=== PATIENT | female | born 1940 | race Caucasian/White ===

== ENCOUNTER → 2016-10-27 12:28 | Outpatient (CLI) | payer MEDICARE ==
[2016-02-04 15:30] VITALS: BMI 33.0
[~2016-10-27 12:28] MED LIST: ADVAIR 250/501 DISK INH; ADVAIR 500/501 DISK INH; ADVIL200 MG PO; ATROVENT 0.03%30 ML NS; BACTRIM DS TABL1 TAB PO; BAYER CHEWABLE81 MG PO; BENZONATATE200 MG PO; BROVANA15 MCG/2 M INH; CALCIUM 250+D T1 TAB PO; CENTRUM COMPLE1 EACH PO; COMBIVENT RESPIM4 GM INH; CYCLOBENZAPRINE10 MG PO; DALIRESP500 MCG PO; DIFLUCAN100 MG PO; FLUTICASONE PRO16 GM NASAL; HYDROCHLOROTH12.5 M1 PO; IPRAT-ALBUT 0.5-3 ML UPD; LACTINEX GRANUL1 PCK PO; LEVAQUIN250 MG PO; LEVAQUIN500 MG PO; LISINOPRIL10 MG PO; Levaquin PO; MUCINEX DM ER1 EAC1 PO; NYSTATIN ORAL SU5 ML PO; PLAVIX75 MG PO; PROTONIX40 MG PO; PROVENTIL/2.5 MG/3 M INH; ROBITUSSIN AC (10 M1 PO; SINGULAIR10 MG PO; STERAPRED DS 1210 MG PO; TUDORZA PRESS400 MCG INH; VITAMIN E100 UNIT PO; [UNRECOGNIZED DRUG - OTHER] PO
== END | disposition home or self-care (01) ==
LOC: D.RAD 12:28
DX: J44.9 Chronic obstructive pulmonary disease, unspecified (principal); R07.81 Pleurodynia

== ENCOUNTER → 2016-11-10 07:25 | Outpatient (CLI) | payer MEDICARE ==
[2016-02-04 15:30] VITALS: BMI 33.0
== END | disposition home or self-care (01) ==
LOC: D.RT 07:25
DX: J44.9 Chronic obstructive pulmonary disease, unspecified (principal)

== ENCOUNTER 2016-11-30 14:04 | Inpatient (IN) | payer MEDICARE ==
[~2016-11-30 14:04] MED LIST changes: -BACTRIM DS TABL1 TAB PO; -LEVAQUIN250 MG PO; -Levaquin PO
[2016-11-30 14:41] LABS: BASOPHILS 0.2 % (0.0-2.0); EOSINOPHILS 1.1 % (0-7); HEMATOCRIT 45.4 % (36.0-48.0); HEMOGLOBIN 14.9 g/dL (12-16); IMMATURE GRANULOCYTES 0.6 % (0-5); LYMPHOCYTES 6.8 % (15-50); MCH 28.9 pg (26.0-34.0); MCHC 32.8 g/dL (31.0-37.0); MEAN PLATELET VOLUME 10.1 fL (7.4-10.4); MONOCYTES 3.7 % (2-11); NEUTROPHILS 87.6 % (40-80); PLATELET COUNT 224 10x3/uL (130-400); RBC 5.16 10x6/uL (4.00-5.40); RDW 13.8 % (11.5-14.5)
[2016-11-30 15:05] LABS: ALBUMIN 4.1 g/dL (3.4-5.0); ANION GAP 15.4 mmol/L (8-16); BILIRUBIN - TOTAL 0.63 mg/dL (0.2-1.3); CALCIUM 9.2 mg/dL (8.5-10.1); CARBON DIOXIDE 27.3 mmol/L (21.0-32.0); CREATININE - SERUM 1.3 mg/dL (0.6-1.3); POTASSIUM - SERUM 4.7 mmol/L (3.5-5.1); PROTEIN - SERUM 7.3 g/dL (6.4-8.2)
[2016-11-30 15:30] LABS: APPEARANCE HAZY (CLEAR); BILIRUBIN NEGATIVE (NEGATIVE); COLOR YELLOW (YELLOW); EPITHELIAL CELLS 0-5 /hpf (0-5); GLUCOSE NEGATIVE (NEGATIVE); KETONE NEGATIVE (NEGATIVE); LEUKOCYTE ESTERASE 2+ (NEGATIVE); NITRITE POSITIVE (NEGATIVE); PROTEIN NEGATIVE (NEGATIVE); RED CELLS - URINE OCC /hpf (0-5); SPECIFIC GRAVITY 1.015 (1.005-1.020); UROBILINOGEN NORMAL (NORMAL); WHITE CELLS - URINE 0-5 /hpf (0-5)
[2016-11-30 15:31] LABS: BACTERIA MANY /hpf (NONE SEEN)
--- NOTE | 2016-11-30 18:58 | NUR ---
Patient Name: MARIELOS TALAMANTES Admission Status: ER Accout number: [id number] Admission Date: 11-30-2016 : 1940 Admission Diagnosis: Pneumonia Attending: DIANE Current LOS: 1 Anticipated DC Date: 12-03-2016 Planned Disposition: Home Primary Insurance: [employer] [facility] Discharge Planning Comments: Cm met with patient and her significant other to complete initial discharge planning assessment. Patient gave consent to complete assessment. Patient lives at home with her significant other. She is independent in her care at home. She wears oxygen at hs and prn during the day. Patient also has a nebulizer she uses qid. Patient plans to return home at discharge. CM will continue to follow and assist with dc plan/needs. Is the patient Alert and Oriented? Yes * How many steps to enter\exit or inside your home? 4 * PCP Dr. Coy * Pharmacy [facility] * Preadmission Environment Home with Family * ADLs Independent * Equipment Nebulizer Oxygen * Other Equipment wears O2 at HS and prn during the day. * List name and contact numbers for known caregivers / representatives who currently or will assist patient after discharge: Marvin Garcia - significant other - [phone] * Community resources currently utilized None * Additional services required to return to the preadmission environment? No * Can the patient safely return to the preadmission environment? Yes * Has this patient been hospitalized within the prior 30 days at any hospital? No Accelerator Systems Director: Jeni Dewitt RN, [facility] [phone]
[2016-11-30 20:02] VITALS: BP 97/47; BMI 29.1
--- NOTE | 2016-11-30 20:20 | NUR ---
PT RECIEVED. ASSESSMENT COMPLETE PER FLOW SHEET. VSS. PT AWAKE ALERT ORIENTED X4. O2 VIA NC 4L O2 SAT 97% RR 20 NON LABORED BILAT ALL LOBES CRACKLES HEARD. DENIES SOB. TEMP 98.8. BP 98/47. RESP AT BEDSIDE. ABG'S DRAWN. WILL AWAIT RESULTS. DENIES NEEDS. VSS. WILL CONTINUE TO MONITOR.
--- NOTE | 2016-11-30 20:51 | NUR ---
UPDATE CALLED TO DR. GIL, NEW ORDERS RECIEVED,
[2016-11-30 21:00] VITALS: BP 102/60
[2016-11-30 22:00] VITALS: BP 98/61
[2016-11-30 23:00] VITALS: BP 90/60
--- NOTE | 2016-11-30 23:20 | NUR ---
22G PIV STARTED IN LEFT FA AT THIS TIME, LEFT HAND PIV INFILTRATED,
[2016-11-30 23:50] VITALS: BP 98/61
[2016-12-01] VITALS (24 sets, daily range): BP systolic 83–133; BP diastolic 43–67; BMI 30.9
[2016-12-01] MEDS ORDERED: CENTRUM COMPLE1 EACH PO (00:45)
--- NOTE | 2016-12-01 01:26 | NUR ---
PT RESTING AT THIS TIME, WILL CON'T TO MONITOR
--- NOTE | 2016-12-01 03:15 | NUR ---
REASSESSMENT COMPLETE, NO CHANGES NOTED, PT RESTING AT THIS TIME, WILL CON'T TO MONITOR
--- NOTE | 2016-12-01 06:00 | NUR ---
FAMILY AT BEDSIDE, UPDATE GIVE
--- NOTE | 2016-12-01 08:19 | NUR ---
0800 AM ASSESMENT IS COMPLETE SEE IVONE SHEET FOR FINDINGS. PT IS AWAE ALERT AND SIG OTHER AT THE BEDSIDE.. PT COUGHING PRODUCTIVELY THICK BROWN MUCUS.. WITHOUT C/O AT THIS TIME..
--- NOTE | 2016-12-01 09:21 | NUR ---
0900 FAMILY IN ROOM WITH PT.. DR AGUILERA CALLED AND INFORMED THAT PT IN UNIT,, MEDS GIVEN.. PT ASSISTED TO BSC .. VOIDED WITHOUT DIFFICULTY
--- NOTE | 2016-12-01 11:02 | NUR ---
1030 ULTRA SOUND IN TO SEE PT .. PT HAS HAD MEDS WITH CLEAR LIQUIDS.. US TO BE DONE AT 1500 6 HOURS POST LIQUIDS..
--- NOTE | 2016-12-01 16:06 | NUR ---
1200 FAMILY IN TO SEE PT...DR LIGHT IN TO SEE PT.. 1300 COMPLETE BATH AND LINEN CHANGE DONE.. 1500 FAMILY IN TO SEE PT.. 1530 ULTRA SOUND IN TO DO ABDOMEN.. FAMILY REMAINS AT BEDSIDE.. TYLENOL IV HUNG FOR C/O HEADACHE..
--- NOTE | 2016-12-01 18:23 | NUR ---
1630 ASSISTED OOB TO THE BSC PT VOIDING WITHOUT DIFFICULTY.. 1800 FAMILY IN TO SEE PT.. PT REMAIN NPO UNTIL US RESULTS..
--- NOTE | 2016-12-01 19:15 | NUR ---
REPORT RECIEVED, SHIFT ASSESSMENT COMPLETE, PT IS ALERT AND ORIENTED, ON 2.5L NC WITH 98% O2 SAT, CRACKLES HEARD IN ALL LOBES, S1S2, CM-ST, PATENT LEFT UPPER ARM PICC WITH D5NS INFUSING VIA PUMP, ABDOMEN IS SOFT AND ROUND WITH ACTIVE BS, BSC AT BEDSIDE, NO EDEMA NOTED, ALL PPP, VSS, WILL CON'T TO MONITOR
--- NOTE | 2016-12-01 20:13 | NUR ---
UPDATE CALLED TO DR. AGUILERA, NEW ORDERS RECIEVED,
--- NOTE | 2016-12-01 21:15 | NUR ---
FAMILY AT BEDSIDE, UPDATE GIVEN
--- NOTE | 2016-12-01 23:04 | NUR ---
REASSESSMENT COMPLETE, NO CHANGES NOTED, PT RESTING AT THIS TIME, WILL CON'T TO MONITOR
[2016-12-02] VITALS (11 sets, daily range): BP systolic 90–139; BP diastolic 51–67
--- NOTE | 2016-12-02 01:00 | NUR ---
PT UPTO BSC, 350 UOP AT THIS TIME,
--- NOTE | 2016-12-02 03:00 | NUR ---
PT UPTO BSC 150CC OF UOP
[2016-12-02 04:46] LABS: BASOPHILS 0 % (0.0-2.0); EOSINOPHILS 0 % (0-7); HEMOGLOBIN 12.4 g/dL (12-16); IMMATURE GRANULOCYTES 0.3 % (0-5); LYMPHOCYTES 2.4 % (15-50); MCH 29.2 pg (26.0-34.0); MCHC 33.5 g/dL (31.0-37.0); MCV 87.3 fL (80.0-100.0); MEAN PLATELET VOLUME 10.3 fL (7.4-10.4); MONOCYTES 0.9 % (2-11); NEUTROPHILS 96.4 % (40-80); RBC 4.24 10x6/uL (4.00-5.40)
[2016-12-02 04:55] LABS: PLATELET COUNT 160 10x3/uL (130-400); WBC 11.1 10x3/uL (4.8-10.8)
[2016-12-02 05:09] LABS: BILIRUBIN - TOTAL 0.41 mg/dL (0.2-1.3); CALCIUM 8.6 mg/dL (8.5-10.1); CARBON DIOXIDE 22.2 mmol/L (21.0-32.0); CREATININE - SERUM 1.2 mg/dL (0.6-1.3); MAGNESIUM - SERUM 1.8 mg/dL (1.8-2.4); PROTEIN - SERUM 6.5 g/dL (6.4-8.2)
[2016-12-02 05:13] LABS: ALBUMIN 2.8 g/dL (3.4-5.0); ANION GAP 15.4 mmol/L (8-16); POTASSIUM - SERUM 3.6 mmol/L (3.5-5.1)
--- NOTE | 2016-12-02 10:00 | NUR ---
TO ROOM 2224 FROM ICU VIA WHEELCHAIR.ORIENTATION TO ROOM.CONTACT ISOLATION FOR ESBL IN URINE,PER MICRO
--- NOTE | 2016-12-02 12:14 | NUR ---
REMAINS WITHOUT DISTRESS.CALL LIGHT IN REACH
--- NOTE | 2016-12-02 14:48 | NUR ---
REMAINS WITHOUT DISTRESS.CALL LIGHT IN REACH
--- NOTE | 2016-12-02 16:10 | NUR ---
TO SEE PATIENT. SHE HAS REMAINED WITHOUT DISTRESS. CONT TO MONITOR FOR NEEDS
--- NOTE | 2016-12-02 20:00 | NUR ---
PLACED ON TELEMTRY ORDERED THIS AM. MONITOR SHOWING SR AT 90. NO DISTRESS. LUNGS SOUNDS DIMINISHED. NO DISTRESS. SCD'S ON. SR UP X2 CALL LIGHT WITHIN REACH. PT ON CONTACT ISOLATION.
--- NOTE | 2016-12-02 20:00 | NUR ---
ASSESSMENT PER FLOWSHEET. IV PATENT LEFT UPPER ARM MIDLINE SITE OF D5NS INFUSING NOW AT 30CC'S/HR.SITE CLEAR. O2 ON 2L/M PER NC. BEDSIDE UPDRAFT TX BEING GIVEN PER RT TECH.
--- NOTE | 2016-12-02 21:15 | NUR ---
MEDS GIVEN PER MAR.
--- NOTE | 2016-12-02 21:45 | NUR ---
UP WITH HELP TO BSC VOIDS FREELY.
--- NOTE | 2016-12-03 | NUR ---
EYES CLOSED RESPIRATIONS WITH EASE AND UNLABORED.
--- NOTE | 2016-12-03 02:00 | NUR ---
EYES CLOSED RESPIRATIONS WITH EASE AND UNLABORED.
[2016-12-03 05:02] LABS: BASOPHILS 0 % (0.0-2.0); EOSINOPHILS 0 % (0-7); HEMATOCRIT 36.4 % (36.0-48.0); HEMOGLOBIN 11.7 g/dL (12-16); IMMATURE GRANULOCYTES 0.2 % (0-5); LYMPHOCYTES 4.5 % (15-50); MCHC 32.1 g/dL (31.0-37.0); MCV 87.1 fL (80.0-100.0); MEAN PLATELET VOLUME 10.9 fL (7.4-10.4); MONOCYTES 2.4 % (2-11); NEUTROPHILS 92.9 % (40-80); PLATELET COUNT 156 10x3/uL (130-400); RBC 4.18 10x6/uL (4.00-5.40); RDW 13.9 % (11.5-14.5)
[2016-12-03 05:30] LABS: ALBUMIN 2.6 g/dL (3.4-5.0); ANION GAP 15.1 mmol/L (8-16); BILIRUBIN - TOTAL 0.31 mg/dL (0.2-1.3); CALCIUM 8.3 mg/dL (8.5-10.1); CARBON DIOXIDE 21.4 mmol/L (21.0-32.0); CREATININE - SERUM 1.1 mg/dL (0.6-1.3); MAGNESIUM - SERUM 1.7 mg/dL (1.8-2.4); POTASSIUM - SERUM 3.5 mmol/L (3.5-5.1); PROTEIN - SERUM 6.3 g/dL (6.4-8.2)
[2016-12-03 08:00] VITALS: BP 136/63
--- NOTE | 2016-12-03 09:00 | NUR ---
PT ASSESSMENT COMPLETE AWAKE AND ALERT ORINETD X 3 LUNGS WITH NOTED DIMINISHED LEFT BASE. ON 02 AT 2LPM. NO ACUTE DISTRESS NOTED DOES HAVE SOME ANXIETY AT THIS ITME RE BEING IN ISOLATION AND HAVING UTI WITH MDRO INFECTION. WILL CALL FOR ORDER FOR MEDICATION TO TREAT ANXIETY.
[2016-12-03 09:57] VITALS: BP 113/68
[2016-12-03 11:48] VITALS: BP 114/54
[2016-12-03 12:00] VITALS: BP 116/60
--- NOTE | 2016-12-03 13:04 | NUR ---
NUTRITION MONITORING & EVAL PT VISIT. CURRENTLY IN ISOLATION. TOLERATING REG DIET. WILL CONINUE TO PROVIDE DIET, HONOR FOOD PREFERENCES. RD FOLLOWING
--- NOTE | 2016-12-03 14:35 | NUR ---
AWAKE AND ALERT AT THIS TIME. REMAINS IN CONTACT ISOLATION. DENIES PAIN OR NEEDS AT THIS TIME. CALL LIGHT IN REACH, WILL CONTINUE WITH PLAN OF CARE.
--- NOTE | 2016-12-03 14:38 | NUR ---
PT REMAINS IN CONTACT ISOLATION FOR ESBL IN URINE. REQUESTED AND RECIEVED PER ORDER ATIVAN.
--- NOTE | 2016-12-03 14:38 | NUR ---
PT SITTING UP ON SIE OF BED TREATED WITH ATIVAN FOR ANXIETY WILL MONITOR
[2016-12-03 15:49] VITALS: BP 116/42
--- NOTE | 2016-12-03 18:55 | NUR ---
PT REMAINS IN CONTACT ISOLATION NO ACUTE DISTRESS NOTED TOLERATES TREATMENT WELL. CALL LIGHT INREACH
[2016-12-03 19:00] VITALS: BP 122/60
--- NOTE | 2016-12-03 19:20 | NUR ---
RECIEVED SHIFT REPORT. PT IS LYING IN BED. ALERT AND ORIENTED AND ABLE TO VERBALIZE NEEDS. IV IS PATENT AND FLUIDS ARE RUNNING PER ORDER. O2 @ 2 PER NASAL CANNULA. SCD'S ON. ISOLATION PRECAUTIONS IN PLACE. PT IS AMBULATORY WITH ASSISTANCE. PT STATES PAIN IS 3/10. NO NEEDS ARE VERBALIZED AT THIS TIME. WILL CONTINUE TO MONITOR. SIDE RAILS ARE UP X 2. BED IS IN LOWEST POSITION. CALL LIGHT IS WITHIN REACH.
--- NOTE | 2016-12-03 20:13 | NUR ---
SHIFT ASSESSMENT COMPLETED. NIGHT MEDS GIVEN WITH NO PROBLEMS. NO NEEDS ARE VOICED. WILL MONITOR. SIDE RAILS X 2. BED LOW. CALL LIGHT IN REACH.
[2016-12-04] VITALS: BP 108/52
[2016-12-04 04:00] VITALS: BP 98/48
[2016-12-04 05:03] LABS: BASOPHILS 0 % (0.0-2.0); EOSINOPHILS 0.1 % (0-7); HEMATOCRIT 36.5 % (36.0-48.0); HEMOGLOBIN 11.9 g/dL (12-16); IMMATURE GRANULOCYTES 0.6 % (0-5); LYMPHOCYTES 10.1 % (15-50); MCH 28.2 pg (26.0-34.0); MCHC 32.6 g/dL (31.0-37.0); MCV 86.5 fL (80.0-100.0); MONOCYTES 5.2 % (2-11); PLATELET COUNT 179 10x3/uL (130-400); RBC 4.22 10x6/uL (4.00-5.40); RDW 13.9 % (11.5-14.5); WBC 9.6 10x3/uL (4.8-10.8)
[2016-12-04 05:25] LABS: ALBUMIN 2.6 g/dL (3.4-5.0); ANION GAP 11.6 mmol/L (8-16); BILIRUBIN - TOTAL 0.3 mg/dL (0.2-1.3); CALCIUM 8.6 mg/dL (8.5-10.1); CREATININE - SERUM 1.2 mg/dL (0.6-1.3); MAGNESIUM - SERUM 1.8 mg/dL (1.8-2.4); POTASSIUM - SERUM 3.6 mmol/L (3.5-5.1)
--- NOTE | 2016-12-04 07:35 | NUR ---
ASSESSMENT PER FLOW SHEET.PT WITHOUT DISTRESS.DENIES NEEDS.CALL LIGHT IN REACH.ISLATION MAINTAINED.
[2016-12-04 08:20] VITALS: BP 121/60
[2016-12-04 12:14] VITALS: BP 140/66
--- NOTE | 2016-12-04 12:49 | NUR ---
REMAINS WITHOUT NEEDS.CALL LIGHT IN REACH
--- NOTE | 2016-12-04 14:54 | NUR ---
FAMILY AT BEDSIDE.REMAINS WITHOUT NEEDS.MONITOR
[2016-12-04 15:26] VITALS: BP 133/56
--- NOTE | 2016-12-04 17:00 | NUR ---
RESTING QUIETLY IN BED. DENIES NEEDS. EMPTIED CLEAR YELLOW URINE IN BSC. DENIES NEEDS.
[2016-12-04 20:00] VITALS: BP 131/57
[2016-12-05] VITALS: BP 112/53
--- NOTE | 2016-12-05 00:43 | NUR ---
PT REMEINS IN CONTACT ISOLATION AT THIS TIME. SHE HAS O2 AT 2 LITERS AND HER RESPIRATIONS ARE EASY. NO DISTRESS NOTED. AT THIS TIME SHE IS ASLEEP. SHE HAS TELEMETRY IN PLACE AND SCD'S AT THE BEDSIDE. THE BED IS LOW, RAILS UP X'2 WITH THE CALL LIGHT AT HAND.
--- NOTE | 2016-12-05 02:51 | NUR ---
X1 ASSIST TO BSC
[2016-12-05 04:00] VITALS: BP 141/67
[2016-12-05 05:11] LABS: BASOPHILS 0.1 % (0.0-2.0); EOSINOPHILS 0 % (0-7); HEMOGLOBIN 11.7 g/dL (12-16); IMMATURE GRANULOCYTES 1.4 % (0-5); LYMPHOCYTES 10.9 % (15-50); MCH 27.7 pg (26.0-34.0); MCHC 31.6 g/dL (31.0-37.0); MCV 87.7 fL (80.0-100.0); MEAN PLATELET VOLUME 10.4 fL (7.4-10.4); MONOCYTES 7.1 % (2-11); NEUTROPHILS 80.5 % (40-80); PLATELET COUNT 187 10x3/uL (130-400); RBC 4.22 10x6/uL (4.00-5.40); RDW 13.9 % (11.5-14.5); WBC 7.3 10x3/uL (4.8-10.8)
[2016-12-05 05:40] LABS: ALBUMIN 2.4 g/dL (3.4-5.0); BILIRUBIN - TOTAL 0.26 mg/dL (0.2-1.3); CALCIUM 8.1 mg/dL (8.5-10.1); CARBON DIOXIDE 25.9 mmol/L (21.0-32.0); PROTEIN - SERUM 5.7 g/dL (6.4-8.2)
[2016-12-05 05:43] LABS: ANION GAP 11.5 mmol/L (8-16); POTASSIUM - SERUM 4.4 mmol/L (3.5-5.1)
--- NOTE | 2016-12-05 07:30 | NUR ---
RECIEVED PT DURING WALKING ROUNDS. PT RESTING IN BED WITH NO COMPLAINTS OF PAIN OR DISCOMFORT AT THIS TIME. ASSESSMENT DONE PER FLOWSHEET. BED IN LOW POSITION AND CALL LIGHT WITHIN REACH. WILL CONTINUE TO MONITOR.
[2016-12-05 08:25] VITALS: BP 164/74
--- NOTE | 2016-12-05 11:05 | NUR ---
PT WALKED AROUND UNIT WITH HELP FROM KEYCASE ASSEMBLER, TOLERATED WELL. REMOVED MIDLINE AT THIS TIME DUE TO LEAKING AND PT DISCOMFORT. CATH INTACT. SITE DRESSED WITH GAUZE AND BANDAID. BED IN LOW POSITION AND CALL LIGHT WITHIN REACH. WILL CONTINUE TO MONITOR.
[2016-12-05 12:32] VITALS: BP 99/60
--- NOTE | 2016-12-05 17:14 | NUR ---
PATIENT SITTING UP IN BED. CONTACT ISOLATION PRECAUTIONS IN PLACE. PATIENT EATING HER DINNER. DENIES ANY NEEDS AT PRESENT TIME. CALL LIGHT IN PATIENT'S REACH. WILL MONITOR PATIENT.
[2016-12-05 17:31] VITALS: BP 118/49
[2016-12-05 19:01] VITALS: BP 122/44
[2016-12-06] VITALS: BP 122/52
--- NOTE | 2016-12-06 02:00 | NUR ---
PT IN BED WITH NO DISTRESS. RESPIRATIONS ARE EVEN AND UNLABORED. SIDE RAILS ARE UP X 2. BED IS LOW. CALL LIGHT IS WITHIN REACH.
[2016-12-06 04:00] VITALS: BP 148/59
[2016-12-06 04:48] LABS: BASOPHILS 0.5 % (0.0-2.0); EOSINOPHILS 0.3 % (0-7); HEMATOCRIT 38.8 % (36.0-48.0); HEMOGLOBIN 12.4 g/dL (12-16); IMMATURE GRANULOCYTES 3.1 % (0-5); LYMPHOCYTES 15.4 % (15-50); MCH 28.3 pg (26.0-34.0); MCV 88.6 fL (80.0-100.0); MEAN PLATELET VOLUME 10.3 fL (7.4-10.4); MONOCYTES 8.5 % (2-11); NEUTROPHILS 72.2 % (40-80); PLATELET COUNT 171 10x3/uL (130-400); RBC 4.38 10x6/uL (4.00-5.40); RDW 14.1 % (11.5-14.5); WBC 8.7 10x3/uL (4.8-10.8)
[2016-12-06 05:11] LABS: ALBUMIN 2.4 g/dL (3.4-5.0); ANION GAP 12.9 mmol/L (8-16); BILIRUBIN - TOTAL 0.3 mg/dL (0.2-1.3); CALCIUM 8.2 mg/dL (8.5-10.1); CARBON DIOXIDE 24.5 mmol/L (21.0-32.0); MAGNESIUM - SERUM 1.9 mg/dL (1.8-2.4); POTASSIUM - SERUM 4.4 mmol/L (3.5-5.1); PROTEIN - SERUM 5.6 g/dL (6.4-8.2)
--- NOTE | 2016-12-06 05:57 | NUR ---
PATIENT SLEPT THROUGH THE NIGHT WITH NO COMPLAINTS. 12/07 FALL RISK, BOX ALARM ATTACHED TO PATIENT. x1 ASSISST TO BSC. PIV TO LFA INFUSING D5NS@KVO. BED IN LOWEST LOCKED POSITION, X2 BEDRAILS UP, HOB ELEVATED, CALL LIGHT WITHIN REACH. ON 2LPM O2.
--- NOTE | 2016-12-06 07:15 | NUR ---
PT REC'D FROM SEGUNDO PARKER. UP AMBULATING AROUND ROOM W/O DIFFICULTY. AAOX4. IV SITE TO L FOREARM FREE OF REDDNESS AND SWELLING. PT HAS REDDENED AREA TO R BUTTOCK. STATES THERE IS NO PAIN. EXPIRATORY WHEEZES TO LLL. BED LOW, CALL LIGHT IN REACH, DENIES NEEDS. CPOC.
[2016-12-06 08:28] VITALS: BP 140/62
--- NOTE | 2016-12-06 10:00 | NUR ---
MORNING MEDS PASSED AT THIS TIME. PT RESTING IN BED WITH LIGHTS OFF. NO C/O OF PAIN. BED LOW, CALL LIGHT IN REACH, DENIES NEEDS. CPOC.
[2016-12-06 12:02] VITALS: BP 131/60
--- NOTE | 2016-12-06 16:01 | NUR ---
PT AOX4 RESP EVEN AND NONLABORED IV TO LEFT FOREARM PATENT AND INTACT. 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 BED AT LOWEST SETTING CALL LIGHT WITHIN REACH WILL CONTINUE TO MONITOR FAMILY AT THE BEDSIDE
[2016-12-06 16:36] VITALS: BP 132/55
--- NOTE | 2016-12-06 18:18 | NUR ---
PT FEELING ITCHY AND FLUSHED. PT IS RED AND FEELS WARM TO TOUCH. PHYSICIAN SYSTEM SOFTWARE DEVELOPER PAGED.
--- NOTE | 2016-12-06 18:35 | NUR ---
ORDERS OBTAINED AT THIS TIME. PRN BENADRYL ADMINISTERED. WILL REASSESS.
[2016-12-06 20:00] VITALS: BP 107/40
--- NOTE | 2016-12-07 00:04 | NUR ---
PATIENT SLEEPING IN BED, NO NEEDS NOTED AT THIS TIME.
[2016-12-07 00:30] VITALS: BP 110/49
--- NOTE | 2016-12-07 01:57 | NUR ---
PT RESTING IN BED. NO DISTRESS IN NOTED. RESPIRATIONS ARE EVEN AND UNLABORED. SIDE RAILS ARE UP X 2. BED IS LOW. CALL LIGHT IN REACH.
[2016-12-07 04:22] LABS: BASOPHILS 0.5 % (0.0-2.0); EOSINOPHILS 2.9 % (0-7); HEMATOCRIT 40.9 % (36.0-48.0); HEMOGLOBIN 13.3 g/dL (12-16); IMMATURE GRANULOCYTES 9.7 % (0-5); LYMPHOCYTES 28.5 % (15-50); MCH 28.2 pg (26.0-34.0); MCHC 32.5 g/dL (31.0-37.0); MCV 86.7 fL (80.0-100.0); MONOCYTES 6.5 % (2-11); NEUTROPHILS 51.9 % (40-80); RBC 4.72 10x6/uL (4.00-5.40); RDW 14.1 % (11.5-14.5); WBC 9.7 10x3/uL (4.8-10.8)
[2016-12-07 04:29] LABS: PLATELET COUNT 215 10x3/uL (130-400)
[2016-12-07 04:34] LABS: ANION GAP 12.6 mmol/L (8-16); CALCIUM 8.4 mg/dL (8.5-10.1); CARBON DIOXIDE 27.1 mmol/L (21.0-32.0)
[2016-12-07 04:35] LABS: POTASSIUM - SERUM 3.7 mmol/L (3.5-5.1)
[2016-12-07 04:39] VITALS: BP 104/50
--- NOTE | 2016-12-07 07:38 | NUR ---
AWAKE AND ALERT AT THIS TIME. REMAINS ON DROPLET PRECAUTIONS FOR MRSA IN THE SPUTUM. DENIES PAIN. PT SELF POSITIONS AND AMBULATES. SCD'S OFF, CALL LIGHT IN REACH. WILL CONTINUE WITH PLAN OF CARE.
[2016-12-07 08:58] VITALS: BP 130/56
[2016-12-07 11:36] VITALS: BP 114/53
[2016-12-07] MEDS ORDERED: BACTRIM DS TABL1 TAB PO (15:04)
[2016-12-07] MEDS ORDERED: Levaquin PO (15:05)
--- NOTE | 2016-12-07 15:33 | NUR ---
D/C PAPERWORK COMPLETE AT THIS TIME. LEVAQUIN PRESCRIPTION CALLED INTO [facility] AND SPOKE WITH YESSY OROZCO.
--- NOTE | 2016-12-07 15:33 | NUR ---
CM REASSESSMENT NOTE: PATIENT IS DISCHARGING HOME TODAY. SPOUSE OR FAMILY WILL DRIVE HER HOME. PATIENT REF. HOME HEALTH AND HAD NO OTHER NEEDS FOR DISCHARGE.
[2016-12-07 15:51] VITALS: BP 107/39
--- NOTE | 2016-12-07 16:35 | NUR ---
D/C HOME AT THIS TIME. DENIES QUESTIONS OR CONCERNS RELATED TO DISCHARGE. IV D/C WITH CATH TIP INTACT.
[2016-12-08] MEDS ORDERED: LEVAQUIN250 MG PO (08:50)
--- NOTE | 2017-01-28 12:11 | CN ---
PATIENT NAME:MARIELOS BURLESON MEDICAL RECORD: [id number] : 39 LOCATION:[id number] ADMIT DATE: 11/30/16 ACCOUNT: [id number] CONSULTING PHYSICIAN: ANNABELLE LIGHT MD REFERRING PHYSICIAN: SURINDER GIL DO DATE OF CONSULTATION: 12/01/2016 Pulmonary Consultation CONSULT REQUESTING PHYSICIAN: Irina Aguilera DO REASON FOR CONSULTATION: Acute exacerbation of chronic obstructive pulmonary disease, fever, and shortness of breath. HISTORY OF PRESENT ILLNESS: Ms. Burleson a 76-year-old female. According to the patient, she has some nausea and dry heaves for the last few days, but there was no significant vomiting and she denies any aspiration. Yesterday afternoon, the patient developed severe shortness of breath, fever and chills and the patient was brought into the ER and in evaluation, she was found she had a significant leukocytosis and chest radiograph showed infiltrate in the lower lobe. She is also having a sore throat. The urine showed a Gram-negative marcus, consistent with the UTI. REVIEW OF SYSTEMS: CONSTITUTIONAL: She has a fever and chills. HEENT: No sinus congestion. RESPIRATORY: As in history of present illness. GASTROINTESTINAL: She has dry heaves and denies nausea. Other review of the systems is negative. PAST MEDICAL HISTORY: 1. COPD. 2. Hyperlipidemia. 3. Coronary artery disease. 4. Hypertension. 5. Pneumonia in the past. PAST SURGICAL HISTORY: 1. She is status post CABG. 2. Cataract surgery. 3. Hysterectomy. ALLERGIES: SHE IS ALLERGIC TO FLAGYL. PRESENT MEDICATIONS: [employer] was reviewed. PERSONAL AND SOCIAL HISTORY: The patient was a smoker. She quit 4 years ago. She is a nondrinker. FAMILY HISTORY: Significant for cancer and cardiovascular disease. PHYSICAL EXAMINATION: GENERAL: Now, the patient is lying comfortably. She is not in acute distress. VITAL SIGNS: The blood pressure is 85-103/48, pulse is 96, respiration is 16, CONSULT REPORT [id number] MARIELOS BURLESON temperature 98.4, and SPO2 is 96% on 3 liter nasal cannula. HEENT: Conjunctivae are pink. Sclerae nonicteric. NECK: Supple. No JVD. CHEST: There are bilateral crackles, wheeze on forceful expiration. HEART: Rhythm regular, normal sound, no murmur. ABDOMEN: Soft. Bowel sounds present. No hepatosplenomegaly. RECTAL: Deferred. EXTREMITIES: No cyanosis, no clubbing, no pedal edema. SKIN: Warm, normal turgor. CENTRAL NERVOUS SYSTEM: The patient is awake and alert. There is no obvious cranial nerve abnormality. The gait was not tested. CHEST RADIOGRAPH: There are bibasilar infiltrate. LABORATORY DATA: CBC: WBC 18,000, hemoglobin 14.9, hematocrit 45.4, the platelet count is 244. The neutrophils are 87.6%. ABG: The pH is 7.42, pCO2 is 35.7, the pO2 was 68. This was done on 5 liter nasal cannula. Chemistry: Sodium 136, potassium is 4.7, BUN is 27, creatinine 1.3. ALT is 72. ProBNP is 99. The urine showed Gram-negative rods. IMPRESSION: 1. Ipfuq-la-sawozel hypoxic respiratory failure secondary to #2. 2. Pneumonia, bibasilar, most likely community-acquired pneumonia, possible Streptococcus pneumoniae with a sudden onset and fever and chill. The flu test is negative. 3. Leukocytosis secondary to pneumonia and urinary tract infection. 4. Acute exacerbation of chronic obstructive pulmonary disease. 5. Oral thrush. 6. Urinary tract infection. RECOMMENDATION: 1. Continue Levaquin and Zosyn. 2. Discontinue the Advair. Start her on Brovana and budesonide nebulizer. Continue albuterol/ipratropium nebulizer. 3. Methylprednisolone IV. 4. Start on Brovana and budesonide nebulizer. 5. Start on antitussive and mucolytics. 6. Supplemental oxygen as required. 7. IV fluid. Dr. Aguilera, once again thanks for involving me in the care of Ms. Burleson. TRANSINT:[id number] Voice Confirmation ID: [id number] DOCUMENT ID: [id number] ANNABELLE LIGHT MD at 1211 CC: IRINA AGUILERA DO [id number] DICTATION DATE: 12/01/16 1315 FLOOR MOLDER: 12/01/16 1406 DIS IN 12/07/[address] [address]
== END 2016-12-07 16:35 | disposition home or self-care (01) | DRG 189 ==
LOC: D.ER 14:04 → D.ICU 17:10 → D.MS 12-02 09:48
PROVIDERS: Emergency Medicine; Internal Medicine Pulmonary Disease; ADMIT Family Medicine
PROC: 05HC33Z Insertion of Infusion Device into Left Basilic Vein, Percutaneous Approach (ICD-10-PCS; principal; 2016-12-01)
PROC: B54NZZA Ultrasonography of Left Upper Extremity Veins, Guidance (ICD-10-PCS; principal; 2016-12-01)
DX: J96.21 Acute and chronic respiratory failure with hypoxia (principal); J15.212 Pneumonia due to Methicillin resistant Staphylococcus aureus; J44.0 Chronic obstructive pulmonary disease with (acute) lower respiratory infection; N39.0 Urinary tract infection, site not specified; B37.0 Candidal stomatitis; B96.1 Klebsiella pneumoniae [K. pneumoniae] as the cause of diseases classified elsewhere; E78.5 Hyperlipidemia, unspecified; I25.10 Atherosclerotic heart disease of native coronary artery without angina pectoris; I10 Essential (primary) hypertension; J30.9 Allergic rhinitis, unspecified; Z87.891 Personal history of nicotine dependence

== ENCOUNTER → 2017-02-25 09:56 | Outpatient (CLI) | payer MEDICARE ==
[2016-12-01 10:02] VITALS: BMI 30.9
[~2017-02-25 09:56] MED LIST changes: +BACTRIM DS TABL1 TAB PO; +LEVAQUIN250 MG PO; +Levaquin PO
[2017-02-25 10:50] LABS: C-REACTIVE PROTEIN 0.2 mg/dL (0.0-0.9)
[2017-02-26 09:17] LABS: C-PEPTIDE 5.3 ng/mL (1.1-4.4)
[2017-02-26 11:18] LABS: ANA REFLEX - DIRECT Negative (Negative)
== END | disposition home or self-care (01) ==
LOC: D.LAB 09:51
PROVIDERS: Internal Medicine Pulmonary Disease
DX: J44.9 Chronic obstructive pulmonary disease, unspecified (principal)

== ENCOUNTER 2017-05-17 07:38 | Outpatient (CLI) | payer MEDICARE ==
[~2017-05-17] VITALS: Ht 162.6 cm; Wt 84.1 kg
--- NOTE | ~2017-05-17 | HEMODYNAMI ---
PATIENT:MARIELOS TALAMANTES MEDICAL RECORD: [id number] : 38 LOCATION:[facility] ADMISSION DATE: 05/17/17 Generatedon:05/17/201710:06 Patient name: MARIELOS TALAMANTES Patient #: [id number] SSN: : [id number] Date of study: 05/17/2017 Page: Of Hemodynamic Procedure Report Patient Data Patient Demographics Procedure consent was obtained First Name: MARIELOS Gender: Female Last Name: ALBIN : 1940 [facility] Initial: MAHESH Age: 76 year(s) Patient #: [id number] Race: Additional ID: [id number] Contact details [address]: [address] [place] [address] State: [place] City: [place] Zip code: [address] Past Medical History Allergies Allergen Reaction Date Comments Reported Other allergy 10/16/2015 Flagyl Admission Admission Data Admission Date: 05/17/2017 Admission Time: 7:38 Procedure Procedure Types Cath Procedure Peripheral Cath Diagnostic Procedure Cath Peripheral Kldhb-Gmatxkb-Byf-Off Procedure Description Procedure Date Procedure Date: 05/17/2017 Procedure Start Time: 9:56 Procedure End Time: 10:05 Procedure Staff Name Function Korey Moulton MD Performing Physician Edin Jean RN Nurse Abhishek Escobedo RT Monitor Fern Diez RT Scrub Procedure Data Cath Procedure Fluoroscopy Diagnostic fluoroscopy Total fluoroscopy Time: 0.3 time: 0.3 min min Diagnostic fluoroscopy Total fluoroscopy dose: 92 dose: 92 mGy mGy Contrast Material Contrast Material Type Amount (ml) Isovue 300 47 Entry Location Entry Primary Successful Side Size Upsize Upsize Entry Closure Succes sful Closure Location (Fr) 1 (Fr) 2 (Fr) Remarks Device Remarks Femoral Right 5 Fr Exoseal artery Estimated blood loss: 5 ml Diagnostic catheters Device Type Used For End Catheter Placement Cordis Tempo 5Fr UF Procedure catheter Procedure Medications Medication Administration Route Dosage Oxygen NC 2 l/min Heparin Flush Bag added to field 2 bags (1000units/500ml NS) 0.9% NaCl I.V. 100 ml/hr Fentanyl I.V. 50 mcg Versed I.V. 1 mg Fentanyl I.V. 50 mcg Versed I.V. 1 mg Hemodynamics Rest Heart Rate: 63 (bpm) Snapshots Pre Cath Intra NCS Post Cath Vital Signs Time Heart Resp SPO2 NIBP (mmHg) Rhythm Pain Sedation Rate (ipm) (%) Status Level (bpm) 9:46:32 62 20 100 135/69(115) NSR 0 (11) 10(A) , No pain 9:50:55 61 17 100 142/65(105) NSR 0 (11) 10(A) , No pain 9:55:06 60 17 96 115/60(89) NSR 0 (11) 9(A) , No pain 9:59:16 63 17 96 101/59(79) NSR 0 (11) 9(A) , No pain 10:03:26 62 18 96 109/63(82) NSR 0 (11) 9(A) , No pain Medications Time Medication Route Dose Verified Delivered Reason Notes Effect iveness by by 9:50:17 Oxygen NC 2 Edin Edin Per l/min Ted Jean RN physician RN 9:50:26 Heparin Flush added 2 Edin Edin used for Bag to bags Ted Jean RN procedure (1000units/500ml field RN NS) 9:50:35 0.9% NaCl I.V. 100 Edin Edin Per ml/hr Ted Jean RN physician RN 9:54:57 Fentanyl I.V. 50 Edin Edin for mcg Ted Jean RN sedation RN 9:55:01 Versed I.V. 1 mg Edin Edin for Ted Jean RN sedation RN 9:57:16 Fentanyl I.V. 50 Edin Edin for mcg Ted Jean RN sedation RN 9:57:22 Versed I.V. 1 mg Edin Edin for Ted Jean RN sedation transport tech Log Time Note 9:20:05 Edin Jean RN sent for patient. Start room use. 9:29:06 Time tracking: Regular hours 9:29:10 Plan of Care:Hemodynamics will remain stable., Cardiac rhythm will remain stable., Comfort level will be maintained., Respiratory function will remain adequate., Patient/ family verbilizes understanding of procedure., Procedure tolerated without complication., Recovers from procedure without complications.. 9:38:25 Patient received from Pre/Post Procedure Room to CCL 2 Alert and oriented. Tansferred to table in Supine position. 9:38:30 Warm blankets applied, and chika hugger turned on for patient comfort. 9:38:31 Correct patient and procedure confirmed by team. 9:38:39 Signed procedure consent form obtained from patient. 9:38:42 ECG and BP/O2 sat monitors applied to patient. 9:45:18 Procedure type changed to Cath procedure, Peripheral Cath Diagnostic Procedure, Cath Peripheral, Ojiad-Mvjzelv-Xpo-Off 9:45:23 Vital chart was started 9:50:17 Oxygen 2 l/min NC was administered by Edin Jean RN; Per physician; 9:50:26 Heparin Flush Bag (1000units/500ml NS) 2 bags added to field was administered by Edin Jean RN; used for procedure; 9:50:35 0.9% NaCl 100 ml/hr I.V. was administered by Edin Jean RN; Per physician; 9:51:17 Baseline sample Acquired. 9:52:11 Rhythm: sinus rhythm 9:52:15 Full Disclosure recording started 9:52:41 H&P Date Dictated: 05/13/2017 Within 30 days and on chart., H&P Addendum completed by physician on day of procedure. (MUST COMPLETE FOR ALL OUTPATIENTS). 9:52:42 Pre-procedure instructions explained to patient. 9:52:43 Pre-op teaching completed and patient verbalized understanding. 9:52:45 Family in waiting room. 9:52:48 Patient NPO since Midnight. 9:53:04 Is patient on blood thinner?No 9:53:07 Patient diabetic? No. 9:53:11 Patient not . Patient is over age 54. 9:53:12 ----Pre-sedation anethsthesia assessment.---- 9:53:15 Previous problem with sedation/anesthesia? No ? 9:53:17 Snore? Yes 9:53:18 Sleep apnea? No 9:53:20 Deviated septum? No 9:53:21 Opens mouth fully? Yes 9:53:23 Sticks out tongue? Yes 9:53:28 Airway obstruction? Yes COPD 9:53:34 Dentures? Yes IN TIGHT 9:53:40 Pre procedure: right dorsailis pedis pulse 2+ Normal; easily identifiable; not easily obliterated 9:53:44 Pre procedure: left dorsailis pedis pulse 2+ Normal; easily identifiable; not easily obliterated 9:53:48 Patient pain scale 0/10 ?. 9:54:00 IV patent on arrival in left hand with 0.9% NaCl at [facility]. 9:54:05 Lab results completed and on chart. 9:54:09 Bilateral groins area was prepped with chlora-prep and draped in sterile fashion 9:54:11 Alarms reviewed by R. N. 9:54:12 Sharps counted by scrub and verified by R.N. 9:54:20 Physician arrived 9:54:21 --------ALL STOP TIME OUT------ 9:54:22 Final Timeout: patient, procedure, and site verified with staff and physician. All members of the team are in agreement. 9:54:24 Bilateral groins site verified by team. 9:54:28 Physical assessment completed. ASA score P 2 - A patient with mild systemic disease as per Korey Moulton MD. 9:54:32 Sedation plan: IV Moderate Sedation Versed, Fentanyl 9:54:44 Use device set Femoral Dx 9:54:45 Acist Syringe opened to sterile field. 9:54:46 Bag Decanter opened to sterile field. 9:54:47 Medline Cath Pack opened to sterile field. 9:54:48 Terumo 5Fr Kimmell Sheath opened to sterile field. 9:54:49 St Santo 260cm J .035 wire opened to sterile field. 9:54:51 Acist Hand Control opened to sterile field. 9:54:51 Acist Manifold opened to sterile field. 9:54:54 Tegaderm 4 x 4 opened to sterile field. 9:54:57 Fentanyl 50 mcg I.V. was administered by Edin Jean RN; for sedation; 9:55:01 Versed 1 mg I.V. was administered by Edin Jean RN; for sedation; 9:55:38 Zero performed for pressure channel P1 9:55:41 Zero performed for pressure channel P1 9:55:44 Zero performed for pressure channel P1 9:55:46 Zero performed for pressure channel P1 9:55:49 Zero performed for pressure channel P1 9:55:52 Zero performed for pressure channel P1 9:56:02 Procedure started. 9:56:06 Local anesthetic to right femoral artery with Lidocaine 2% by Korey Moulton MD.INITIAL ACCESS ONLY 9:56:18 A 5 Fr sheath was inserted into the Right Femoral artery 9:56:32 A Cordis Tempo 5Fr UF catheter was advanced over the wire and used for Procedure. 9:57:16 Fentanyl 50 mcg I.V. was administered by Edin Jean RN; for sedation; 9:57:22 Versed 1 mg I.V. was administered by Edin Jean RN; for sedation; 9:58:08 Abdominal Aortagram was performed. 9:58:30 Left leg runoff performed. 9:58:33 Right leg runoff performed. 9:58:39 Catheter removed. 9:59:08 Cordis 5Fr Exoseal opened to sterile field. 9:59:25 Sheath removed intact; hemostasis achieved with Exoseal to the Right Femoral artery. 9:59:28 Procedure ended.(Physican Out) 10:00:47 Fluoroscopy time 00.30 minutes. 10:00:56 Fluoroscopy dose: 92 mGy 10:00:56 Flurop Dose total: 92 10:01:01 Contrast amount:Isovue 300 47ml. 10:01:10 Sharps counted by scrub and verified by R.N. 10:02:34 Cook 18G 7cm Percutaneous Entry needle opened to sterile field. 10:02:46 Insertion/operative site no bleeding no hematoma. 10:02:51 Post-op/insertion site Right Femoral artery dressed using a 4 x 4 and Tegaderm. 10:02:55 Post right femoral artery:stable 10:03:08 Post Procedure Pulses reassessed and unchanged 10:03:30 Post-procedure physical assessment completed. ASA score P 2 - A patient with mild systemic disease as per Korey Moulton MD. 10:03:33 Post procedure rhythm: sinus rhythm 10:03:38 Estimated blood loss: 5 ml 10:03:40 Post procedure instruction explained to patient.Patient verbalizes understanding. 10:03:40 Patient needs reinforcement of post procedure teaching. 10:03:41 Procedure and supply charges have been captured, reviewed, submitted and are correct. 10:05:10 Vital chart was stopped 10:05:10 See physician's report for complete and final results. 10:05:12 Report given to Pre/Post Procedure Room. 10:05:15 Patient transfered to Pre/Post Procedure Room with Stretcher. 10:05:18 Procedure ended. 10:05:18 Full Disclosure recording stopped 10:05:27 End room use (Document Last) Device Usage Item Name Manufacture Quantity Catalog Hospital Part Current Minimal Lot# / Number Charge Number Stock Stock Serial# Code Acist Acist 1 [id number] [id number] 549859 [id number] 20 Syringe [employer] Bag Decanter Microtek 1 2002S 007835 68605 834130 5 Medical Inc. Medline Cath Cardinal 1 [id number] 04160 [id number] 5 Pack Health Terumo 5Fr Terumo 1 [id number] 099336 161277 164275 [address] St Santo 1 [id number] 418542 826953 147517 30 260cm J .035 wire Acist Hand Acist 1 66418 018128 501679 955422 5 Control [employer] Inc Acist Acist 1 45258 041457 393637 686781 5 Manifold Medical [employer] Inc Tegaderm 4 x 3M 1 1626W 170381 407021 639404 5 4 Cordis Tempo Cardinal 1 [id number] 181427 603282 331568 10 5Fr Health catheter Cordis 5Fr Cardinal 1 EX500 356639 713095 866544 10 Exoseal Health Cook 18G 7cm [facility] 1 [id number] 252578 75208 561117 5 Percutaneous Entry needle Signature Audit [place] Stage Time Signature Unsigned Intra-Procedure 05/17/2017 Abhishek Escobedo 10:06:20 AM RT(R) (CV) Signatures Monitor : Abhishek Escobedo RT Signature : Date : Time : [facility] [address] [facility] [place] [address]
--- NOTE | ~2017-05-17 | OP ---
PATIENT NAME: MARIELOS TALAMANTES MEDICAL RECORD: [id number] :38 LOCATION:[facility] ADMISSION DATE: SURGEON: DIAZ ALDRICH MD DATE OF OPERATION: 05/17/2017 PROCEDURES: 1. Aortofemoral runoff. 2. Abdominal aortography. INDICATION: Claudication and peripheral vascular disease. PROCEDURE IN DETAIL: After informed consent was obtained and after detailed explanation of risks, benefits as well as alternative therapies, the patient elected to proceed with angiogram and aortofemoral runoff. The right femoral area was prepped and draped in normal sterile fashion. The right femoral artery was cannulated via modified Seldinger technique with placement of a 5-Persian sheath. All catheters were exchanged through this sheath. FINDINGS: The abdominal aortography was performed. The catheter was pulled down for aortofemoral runoff. Abdominal aortography revealed no significant abdominal aortic disease. No dissection or aneurysm formation. No renal artery stenosis. RIGHT LEG: A. Iliac: The common internal and external iliacs have mild irregularities, but no flow-limiting stenosis. B. Femoral system: The common superficial and deep femoral have mild irregularities, but no flow-limiting stenosis. C. Popliteal and infrapopliteal vessels are widely patent with good 3-vessel runoff to the foot. LEFT LEG: A. Iliac: The common internal and external iliacs have mild irregularities, but no flow-limiting stenosis. B. Femoral system: The common superficial and deep femoral have mild irregularities, but no flow-limiting stenosis. C. Popliteal and infrapopliteal vessels are widely patent with good 3-vessel runoff to the foot. OVERALL IMPRESSION: Minimal peripheral vascular disease is present. No flow-limiting stenosis. Leg pain is not arterial or vascular in etiology, most likely secondary to neurologic impingement in the low back. TRANSINT:[id number] Voice Confirmation ID: [id number] DOCUMENT ID: [id number] DIAZ ALDRICH MD CC: [id number] DICTATION DATE: 05/17/17 1004 WEBBING TACKER: 05/17/17 1211 DEP CLI 05/17/17 [facility] [address] [place] [id number]
[2017-05-17] MEDS ORDERED: METOPROLOL TART50 MG PO (07:58)
[2017-05-17] MEDS ORDERED: FLAGYL250 MG PO (08:00)
[2017-05-17] MEDS ORDERED: DALIRESP500 MCG PO (08:19)
[2017-05-17] MEDS ORDERED: ROPINIROLE HCL2 MG PO (08:20)
[2017-05-17] MEDS ORDERED: FLUTICASONE PRO16 GM NASAL (08:20)
[2017-05-17] MEDS ORDERED: CALCIUM 500 + D1 TAB PO (08:21)
[2017-05-17 08:25] VITALS: BP 130/56; Ht 162.6 cm; Wt 84.1 kg
[2017-05-17 08:44] LABS: ANION GAP 13.5 mmol/L (8-16); CALCIUM 8.7 mg/dL (8.5-10.1); CARBON DIOXIDE 26.5 mmol/L (21.0-32.0)
[2017-05-17 08:53] LABS: BASOPHILS 0.2 % (0-2); EOSINOPHILS 2.7 % (0-7); HEMATOCRIT 42.7 % (36.0-48.0); IMMATURE GRANULOCYTES 0.4 % (0-5); MCH 28.6 pg (26.0-34.0); MCHC 32.8 g/dL (31.0-37.0); MCV 87.1 fL (80.0-100.0); MEAN PLATELET VOLUME 10.8 fL (7.4-10.4); MONOCYTES 6.8 % (2-11); NEUTROPHILS 60.9 % (40-80); RDW 12.9 % (11.5-14.5); WBC 4.8 10x3/uL (4.8-10.8)
[2017-05-17 08:54] LABS: PLATELET COUNT 150 10x3/uL (130-400)
--- NOTE | 2017-05-17 10:30 | NUR ---
2L NC, NO RESP DISTRESS NOTED. RIGHT GROIN 5F EXOSEAL CDI, NO BLEEDING OR HEMATOMA NOTED. PULSES PALPABLE X4. NO C/O PAIN OR NAUSEA. VSS. INSTRUCTED PT TO KEEP HEAD FLAT ON PILLOW AND RIGHT LEG STRAIGHT. FAMILY AT BEDSIDE, CALL LIGHT WITHIN REACH.
--- NOTE | 2017-05-17 11:03 | NUR ---
RESTING QUIETLY. 2L NC, NO RESP DISTRESS NOTED. RIGHT GROIN 5F EXOSEAL CDI, NO BLEEDING OR HEMATOMA NOTED. SANDWICH TRAY AND DRINK GIVEN, NO C/O N/V. WILL CONTINUE TO MONITOR.
--- NOTE | 2017-05-17 11:16 | NUR ---
2L NC, NO RESP DISTRESS NOTED. RIGHT GROIN 5F EXOSEAL CDI, NO BLEEDING OR HEMATOMA NOTED. VSS. NO C/O AT THIS TIME. FAMILY AT BEDSIDE, CALL LIGHT WITHIN REACH.
--- NOTE | 2017-05-17 11:31 | NUR ---
HOB ELEVATED 30 DEGREES. RIGHT GROIN 5F EXOSEAL CDI, NO BLEEDING OR HEMATOAM NOTED.
--- NOTE | 2017-05-17 11:45 | NUR ---
LEFT HAND PIV D/C'D WITH CATHETER INTACT, BAND AID TO SITE. UP TO BEDSIDE TO GET DRESSED.
--- NOTE | 2017-05-17 11:51 | NUR ---
UP TO RESTROOM TO VOID.
--- NOTE | 2017-05-17 11:55 | NUR ---
DISCHARGE INSTRUCTIONS GIVEN, VERBALIZED UNDERSTANDING.
--- NOTE | 2017-05-17 12:00 | NUR ---
TAKEN OUT VIA WHEELCHAIR BY CATH BOX STAPLER. LEFT FACILITY WITH FAMILY MEMBER AND ALL PERSONAL BELONGINGS.
== END 2017-05-17 12:00 | disposition home or self-care (01) ==
LOC: D.CATH 07:38
PROVIDERS: Internal Medicine Interventional Cardiology
DX: I70.213 Atherosclerosis of native arteries of extremities with intermittent claudication, bilateral legs (principal); I10 Essential (primary) hypertension; I25.10 Atherosclerotic heart disease of native coronary artery without angina pectoris; J44.9 Chronic obstructive pulmonary disease, unspecified; E78.5 Hyperlipidemia, unspecified; Z01.812 Encounter for preprocedural laboratory examination

== ENCOUNTER 2017-05-24 14:24 | Inpatient (IN) | payer MEDICARE ==
--- NOTE | ~2017-05-24 | HEMODYNAMI ---
PATIENT:MARIELOS TALAMANTES MEDICAL RECORD: [id number] : 38 LOCATION:D. D.2106 ADMISSION DATE: 05/24/17 Generatedon:05/31/20178:27 Patient name: MARIELOS TALAMANTES Patient #: [id number] SSN: : 1940 Date of study: 05/31/2017 Page: Of Hemodynamic Procedure Report Patient Data Patient Demographics Procedure consent was obtained First Name: MARIELOS Gender: Female Last Name: ALBIN : 1940 [facility] Initial: MAHESH Age: 76 year(s) Patient #: [id number] Race: Additional ID: [id number] Contact details [address]: [address] [place] [address] State: [place] City: [place] Zip code: [address] Past Medical History Allergies Allergen Reaction Date Comments Reported Other allergy 10/16/2015 Flagyl Admission Admission Data Admission Date: 05/24/2017 Admission Time: 14:24 Room #: D.2106 Procedure Procedure Types Cath Procedure Diagnostic Procedure LHC LHC w/Coronaries w/Grafts Miscellaneous Procedures Moderate Sedation up to 30 minutes Procedure Description Procedure Date Procedure Date: 05/31/2017 Procedure Start Time: 8:08 Procedure End Time: 8:27 Procedure Staff Name Function Sohail Gay MD Performing Physician Kelsea Abarca RT Scrub Dane Wright RT Scrub Tiara Johnson RT Monitor Usama Amanda RN Nurse Procedure Data Cath Procedure Fluoroscopy Diagnostic fluoroscopy Total fluoroscopy Time: 3.5 time: 3.5 min min Diagnostic fluoroscopy Total fluoroscopy dose: 383 dose: 383 mGy mGy Contrast Material Contrast Material Type Amount (ml) Isovue 300 37 Entry Location Entry Primary Successful Side Size Upsize Upsize Entry Closure Succes sful Closure Location (Fr) 1 (Fr) 2 (Fr) Remarks Device Remarks Femoral Right 5 Fr Exoseal artery Estimated blood loss: 5 ml Diagnostic catheters Device Type Used For End Catheter Placement Cordis 5Fr JL 4.0 Left Coronary Catheter (MP) Angiography Cordis 5Fr 3DRC Catheter Right Coronary (MP) Angiography Cordis 5Fr 3DRC Catheter SVG Angiography (MP) Cordis 5Fr Pigtail LV Angiography Catheter (MP) Procedure Complications No complications Procedure Medications Medication Administration Route Dosage 0.9% NaCl I.V. 100 ml/hr Oxygen NC 2 l/min Heparin Flush Bag added to field 2 bags (1000units/500ml NS) Lidocaine 2% added to field 20 Solumedrol I.V. 125 mg Versed I.V. 1 mg Fentanyl I.V. 50 mcg Versed I.V. 1 mg Fentanyl I.V. 25 mcg Versed I.V. 1 mg Hemodynamics Rest Heart Rate: 80 (bpm) Pressure Samples Time Site Value (mmHg) Purpose Heart Use Rate(bpm) 8:21 LV 129/-6,17 EDP 78 8:22 AO 123/51(79) Pullback 77 8:22 LV 123/12,14 Pullback 77 Gradients Valve Time Site 1 Site 2 Mean SEP/DFP Peak To Heart Use (mmHg) (sec/min) Peak Rate (mmHg) (bpm) Aortic 8:22 LV AO 9 23 0 77 123/12,14 123/51(79) Calculations Valve P-P Mean Valve Index Valve Source Name Gradient Area Flow (cm2) Aortic 0 9 0 9 Snapshots Pre Cath Intra NCS Post Cath Vital Signs Time Heart Resp SPO2 etCO2 [id number] NIBP (mmHg) Rhythm Pain Sedation Rate (ipm) (%) (mmHg) (mmHg) Status Level (bpm) 7:50:00 75 19 97 0 0 140/61(108) NSR 0 (11) 10(A) , No pain 7:54:47 78 22 96 0 0 139/59(98) NSR 0 (11) 10(A) , No pain 7:59:33 75 23 97 0 0 134/69(100) NSR 0 (11) 10(A) , No pain 8:04:16 75 24 97 0 0 130/63(99) NSR 0 (11) 10(A) , No pain 8:08:59 74 19 95 0 0 125/56(102) NSR 0 (11) 10(A) , No pain 8:13:39 77 17 92 0 0 122/52(87) NSR 0 (11) 10(A) , No pain 8:18:22 78 15 94 0 0 120/61(90) NSR 0 (11) 10(A) , No pain 8:23:07 76 17 94 0 0 115/54(88) NSR 0 (11) 10(A) , No pain Medications Time Medication Route Dose Verified Delivered Reason Notes Effect iveness by by 8:05:16 0.9% NaCl I.V. 100 Usama Usama Per ml/hr Vasiliy De Jesusigan physician RN RN 8:05:34 Oxygen NC 2 Usama Usama Per l/min Lorigan Lorigan physician RN RN 8:05:57 Heparin Flush added 2 Usama Usama used for Bag to bags Lorigan Lorigan procedure (1000units/500ml field RN RN NS) 8:06:39 Lidocaine 2% added 20ml Usama Usama used for to vial Lorigan Lorigan procedure field RN RN 8:07:03 Solumedrol I.V. 125 Usama Usama Per mg Lorigan Lorigan physician RN RN 8:07:18 Versed I.V. 1 mg Usama Usama for Lorigan Lorigan sedation RN RN 8:07:32 Fentanyl I.V. 50 Usama Usama for mcg Lorigan Lorigan sedation RN RN 8:11:12 Versed I.V. 1 mg Usama Usama for Lorigan Lorigan sedation RN RN 8:11:23 Fentanyl I.V. 25 Usama Usama for mcg Lorigan Lorigan sedation RN RN 8:19:34 Versed I.V. 1 mg Usama Usama for Lorigan Lorigan sedation RN multiple sclerosis nurse Log Time Note 7:26:41 Dane Wright RT(R) sent for patient. Start room use. 7:26:42 Time tracking: Regular hours 7:26:48 Plan of Care:Hemodynamics will remain stable., Cardiac rhythm will remain stable., Comfort level will be maintained., Respiratory function will remain adequate., Patient/ family verbilizes understanding of procedure., Procedure tolerated without complication., Recovers from procedure without complications.. 7:41:23 Patient received from PCU to CCL 1 Alert and oriented. Tansferred to table in Supine position. 7:41:24 Warm blankets applied, and chika hugger turned on for patient comfort. 7:41:25 Correct patient and procedure confirmed by team. 7:41:26 Signed procedure consent form obtained from patient. 7:41:27 ECG and BP/O2 sat monitors applied to patient. 7:41:28 Full Disclosure recording started 7:49:01 Vital chart was started 7:49:05 Rhythm: sinus rhythm 7:49:19 H&P Date Dictated: 05/30/2017 Within 30 days and on chart.. 7:49:21 Pre-procedure instructions explained to patient. 7:49:22 Pre-op teaching completed and patient verbalized understanding. 7:49:24 Family in waiting room. 7:49:25 Patient NPO since Midnight. 7:49:35 Is the patient allergic to Iodine/contrast media? No. 7:49:42 Is patient on blood thinner?Yes 7:49:44 ACC The patient was administered the following blood thiners within the last 24 hours: ACCPlavix 7:49:54 Patient diabetic? No. 7:49:57 Previous problem with sedation/anesthesia? No ? 7:49:58 Snore? Yes 7:49:59 Sleep apnea? No 7:50:00 Deviated septum? No 7:50:01 Opens mouth fully? Yes 7:50:01 Sticks out tongue? Yes 7:50:10 Airway obstruction? Yes COPD 7:50:13 Dentures? Yes IN 7:50:16 Pre procedure: right dorsailis pedis pulse 2+ Normal; easily identifiable; not easily obliterated 7:50:18 Patient pain scale 0/10 ?. 7:50:25 IV patent on arrival in left hand with 0.9% NaCl at KVO. 7:51:01 Lab results completed and on chart. 7:51:04 Right groin area was prepped with chlora-prep and draped in sterile fashion 7:51:06 Alarms reviewed by R. N. 7:51:07 Sharps counted by scrub and verified by R.N. 7:51:12 Use device set Femoral Dx 7:51:13 Acist Syringe opened to sterile field. 7:51:14 Bag Decanter opened to sterile field. 7:51:14 Medline Cath Pack opened to sterile field. 7:51:15 Terumo 5Fr [place] Sheath opened to sterile field. 7:51:15 St Santo 260cm J .035 wire opened to sterile field. 7:51:16 Acist Hand Control opened to sterile field. 7:51:17 Acist Manifold opened to sterile field. 7:51:17 Diagnostic Infinity 5Fr Multipack catheter opened to sterile field. 7:51:18 Tegaderm 4 x 4 opened to sterile field. 7:51:27 Cook 4Fr Micropuncture ([id number]) opened to sterile field. 7:53:11 Baseline sample Acquired. 7:53:17 Final Timeout: patient, procedure, and site verified with staff and physician. All members of the team are in agreement. 7:53:19 Right groin site verified by team. 7:53:25 Physical assessment completed. ASA score P 2 - A patient with mild systemic disease as per Sohail Gay MD. 7:53:28 Sedation plan: IV Moderate Sedation Versed, Fentanyl 7:54:44 IV left hand D/C'd due to infiltration. 7:54:57 IV started by Usama Amanda RN inleft forearm with a 22 gauge IV catheter with 0.9% NaCl at KVO. 7:56:08 22g IV Catheter opened to sterile field. 8:02:54 Zero performed for pressure channel P1 8:02:59 Zero performed for pressure channel P1 8:05:16 0.9% NaCl 100 ml/hr I.V. was administered by Usama Amanda RN; Per physician; 8:05:34 Oxygen 2 l/min NC was administered by Usama Amanda RN; Per physician; 8:05:57 Heparin Flush Bag (1000units/500ml NS) 2 bags added to field was administered by Usama Amanda RN; used for procedure; 8:06:39 Lidocaine 2% 20ml vial added to field was administered by Usama Amanda RN; used for procedure; 8:07:03 Solumedrol 125 mg I.V. was administered by Usama Amanda RN; Per physician; 8:07:18 Versed 1 mg I.V. was administered by Usama Amanda RN; for sedation; 8:07:32 Fentanyl 50 mcg I.V. was administered by Usama Amanda RN; for sedation; 8:08:45 Procedure started. 8:08:49 Local anesthetic to right femoral artery with Lidocaine 2% by Sohail Gay MD.INITIAL ACCESS ONLY 8:11:12 Versed 1 mg I.V. was administered by Usama Amanda RN; for sedation; 8:11:23 Fentanyl 25 mcg I.V. was administered by Usama Amanda RN; for sedation; 8:13:23 A 5 Fr sheath was inserted into the Right Femoral artery 8:14:51 A Cordis 5Fr JL 4.0 Catheter (MP) was advanced over the wire and used for Left Coronary Angiography. 8:16:40 Catheter removed. 8:17:57 A Cordis 5Fr 3DRC Catheter (MP) was advanced over the wire and used for Right Coronary Angiography. 8:19:19 A Cordis 5Fr 3DRC Catheter (MP) was advanced over the wire and used for SVG Angiography. To LAD 8:19:26 Catheter removed. 8:19:34 Versed 1 mg I.V. was administered by Usama Amanda RN; for sedation; 8:20:10 A Cordis 5Fr Pigtail Catheter (MP) was advanced over the wire and used for LV Angiography. 8:22:25 LV gram done using SHAY 8:22:27 LV hemodynamics recorded. 8:22:31 Injector settings: Ml/sec: 12, Volume: 8, 8:22:39 Catheter removed. 8:22:48 Cordis 5Fr Exoseal opened to sterile field. 8:22:54 Sheath removed intact; hemostasis achieved with Exoseal to the Right Femoral artery. 8:22:59 Procedure ended.(Physican Out) 8:23:16 Fluoroscopy time 03.50 minutes. 8:23:19 Flurop Dose total: 383 8:23:19 Fluoroscopy dose: 383 mGy 8:24:25 Contrast amount:Isovue 300 37ml. 8:24:26 Sharps counted by scrub and verified by R.N. 8:24:29 Insertion/operative site no bleeding no hematoma. 8:24:33 Post-op/insertion site Right Femoral artery dressed using a 4 x 4 and Tegaderm. 8:24:38 Post right femoral artery:stable, clean and dry 8:24:40 Post Procedure Pulses reassessed and unchanged 8:24:45 Post-procedure physical assessment completed. ASA score P 2 - A patient with mild systemic disease as per Sohail Gay MD. 8:24:48 Post procedure rhythm: unchanged. 8:24:51 Estimated blood loss: 5 ml 8:24:52 Post procedure instruction explained to patient.Patient verbalizes understanding. 8:24:53 Patient needs reinforcement of post procedure teaching. 8:25:08 Procedure type changed to Cath procedure, Diagnostic procedure, LHC, LHC w/Coronaries w/Grafts, Miscellaneous Procedures, Moderate Sedation up to 30 minutes 8:25:19 Procedure Complication : No complications 8:25:22 See physician's report for complete and final results. 8:25:57 Procedure and supply charges have been captured, reviewed, submitted and are correct. 8:26:52 Vital chart was stopped 8:26:54 Report given to PCU. 8:26:57 Patient transfered to PCU with Bed. 8:27:03 Procedure ended. 8:27:03 Full Disclosure recording stopped 8:27:06 End room use (Document Last) Device Usage Item Name Manufacture Quantity Catalog Hospital Part Current Minima l Lot# / Number Charge Number Stock Stock Serial# Code Acist Syringe Acist 1 42461 422398 924152 089595 20 Medical Systems Inc Bag Decanter Microtek 1 2002S 926843 35520 962143 5 Medical Inc. Medline Cath Cardinal 1 [id number] 100617 10271 922938 5 Pack Health Terumo 5Fr Terumo 1 [id number] 829344 589834 387789 [address] Santo 1 821651 969704 495820 112899 30 J .035 wire Acist Hand Acist 1 80854 346871 203606 542777 5 Control Medical Systems Inc Acist Acist 1 99555 674224 523179 488507 5 Manifold Medical Systems Inc Diagnostic Cardinal 1 [id number] 420501 85813 238586 30 Infinity 5Fr Health Multipack catheter Tegaderm 4 x 3M 1 1626W 511716 821660 489590 5 4 Cook 4Fr Cook Medical 1 R50382 017716 081133 389683 5 Micropuncture (T30568) 22g IV B. Brantley 1 [id number] 649015 360287 851509 5 Catheter Cordis 5Fr JL Cardinal 1 684063 5 4.0 Catheter Health (MP) Cordis 5Fr Cardinal 1 684181 5 3DRC Catheter Health (MP) Cordis 5Fr Cardinal 1 929416 5 Pigtail Health Catheter (MP) Cordis 5Fr Cardinal 1 EX500 889469 045395 920444 10 Exoseal Health Signature Audit [place] Stage Time Signature Unsigned Intra-Procedure 05/31/2017 Tiara 8:27:16 AM Counts RT(R) Signatures Monitor : Tiara Signature : Counts RT Date : Time : [id number] [place] [address]
[~2017-05-24 14:24] MED LIST changes: +CALCIUM 500 + D1 TAB PO; +FLAGYL250 MG PO; +METOPROLOL TART50 MG PO; +ROPINIROLE HCL2 MG PO
[2017-05-24] MEDS ORDERED: TOPROL XL50 MG PO (14:48)
--- NOTE | 2017-05-24 14:49 | NUR ---
NEW ADMIT FROM DR. OFFICE. OREINTED TO ROOM. CALL LIGHT IN REACH. WILL CONT. PLAN OF CARE.
[2017-05-24 14:53] LABS: BASOPHILS 0.3 % (0-2); EOSINOPHILS 2.1 % (0-7); HEMATOCRIT 43.5 % (36.0-48.0); HEMOGLOBIN 14.4 g/dL (12-16); IMMATURE GRANULOCYTES 0.3 % (0-5); LYMPHOCYTES 22.8 % (15-50); MCH 28.6 pg (26.0-34.0); MCHC 33.1 g/dL (31.0-37.0); MCV 86.3 fL (80.0-100.0); MEAN PLATELET VOLUME 10.5 fL (7.4-10.4); MONOCYTES 8.3 % (2-11); NEUTROPHILS 66.2 % (40-80); RBC 5.04 10x6/uL (4.00-5.40); RDW 13.1 % (11.5-14.5); WBC 7.2 10x3/uL (4.8-10.8)
[2017-05-24] MEDS ORDERED: MUCINEX1200 MG/BO PO (14:55)
[2017-05-24] MEDS ORDERED: MAG-OX 400 MG400 MG PO (14:58)
[2017-05-24] MEDS ORDERED: ASPIRIN EC81 M1 PO (14:58)
[2017-05-24 15:25] LABS: PLATELET COUNT 187 10x3/uL (130-400)
[2017-05-24 15:28] VITALS: BP 125/61; BMI 34.2
[2017-05-24 15:41] LABS: ALBUMIN 3.7 g/dL (3.4-5.0); BILIRUBIN - TOTAL 0.33 mg/dL (0.2-1.3); CALCIUM 8.9 mg/dL (8.5-10.1); CARBON DIOXIDE 25.3 mmol/L (21.0-32.0); CREATININE - SERUM 0.9 mg/dL (0.6-1.3); POTASSIUM - SERUM 4.3 mmol/L (3.5-5.1); PROTEIN - SERUM 6.9 g/dL (6.4-8.2)
[2017-05-24 16:00] VITALS: BP 125/61
--- NOTE | 2017-05-24 16:53 | NUR ---
WITHOUT CHANGES OR DISTRESS NOTED AT THIS TIME. DENIES NEEDS.
[2017-05-24 20:51] VITALS: BP 122/57
--- NOTE | 2017-05-24 21:55 | NUR ---
ADMIN SCHED MEDS. DENIES ANY NEEDS OR DISCOMFORTS. REQUESTED DOOR LEFT OPEN AND LIGHTS OFF. HAS CALL LIGHT IN REACH.
--- NOTE | 2017-05-25 00:30 | NUR ---
RESTING WITH EYES CLOSED. RR EVEN U/L. NO S/S OF DISCOMFORT. CL IN REACH.
[2017-05-25 01:15] VITALS: BP 127/67
[2017-05-25 03:45] VITALS: BP 113/54
--- NOTE | 2017-05-25 04:00 | NUR ---
QUILT STUFFER PRESENT IN ROOM. PATIENT DENIES ANY NEEDS OR DISCOMFORTS.
[2017-05-25 04:59] LABS: BASOPHILS 0 % (0-2); EOSINOPHILS 0.2 % (0-7); HEMATOCRIT 41.8 % (36.0-48.0); HEMOGLOBIN 13.7 g/dL (12-16); IMMATURE GRANULOCYTES 0.2 % (0-5); LYMPHOCYTES 13.9 % (15-50); MCH 28.3 pg (26.0-34.0); MCHC 32.8 g/dL (31.0-37.0); MCV 86.4 fL (80.0-100.0); MEAN PLATELET VOLUME 10.9 fL (7.4-10.4); MONOCYTES 0.7 % (2-11); PLATELET COUNT 185 10x3/uL (130-400); RBC 4.84 10x6/uL (4.00-5.40); RDW 12.9 % (11.5-14.5)
[2017-05-25 05:36] LABS: ALBUMIN 3.2 g/dL (3.4-5.0); ANION GAP 9.8 mmol/L (8-16); BILIRUBIN - TOTAL 0.29 mg/dL (0.2-1.3); CALCIUM 8.4 mg/dL (8.5-10.1); MAGNESIUM - SERUM 1.8 mg/dL (1.8-2.4); PHOSPHOROUS 3.4 mg/dL (2.5-4.9); POTASSIUM - SERUM 3.8 mmol/L (3.5-5.1); PROTEIN - SERUM 6.7 g/dL (6.4-8.2)
[2017-05-25 06:31] LABS: APPEARANCE CLEAR (CLEAR); BILIRUBIN NEGATIVE (NEGATIVE); COLOR YELLOW (YELLOW); GLUCOSE NEGATIVE (NEGATIVE); KETONE NEGATIVE (NEGATIVE); NITRITE NEGATIVE (NEGATIVE); PROTEIN NEGATIVE (NEGATIVE); SPECIFIC GRAVITY 1.015 (1.005-1.020); UROBILINOGEN NORMAL (NORMAL)
[2017-05-25 08:00] VITALS: BP 114/48
[2017-05-25 12:00] VITALS: BP 125/53
[2017-05-25 16:00] VITALS: BP 127/51
--- NOTE | 2017-05-25 19:40 | NUR ---
RECEIVING UPDRAFT TX. DENIES PAIN OR ANY NEEDS. ALERT/ORIENTED X 4. ASSESSMENTS COMPLETED. ORIENTED TO CALL LIGHT FOR ANY NEEDS.
[2017-05-25 21:26] VITALS: BP 127/51
--- NOTE | 2017-05-25 21:50 | NUR ---
ADMIN SCHED MEDS. REQUESTED ANOTHER PILLOW AND SOME JELLO.
--- NOTE | 2017-05-26 00:30 | NUR ---
MARINE RAILWAY OPERATOR PRESENT IN ROOM TAKING VS. NO NEEDS OR DISCOMFORTS VOICED.
[2017-05-26 07:59] VITALS: BP 113/57
[2017-05-26 12:03] VITALS: BP 116/55
[2017-05-26 16:00] VITALS: BP 133/64
--- NOTE | 2017-05-26 16:00 | NUR ---
ALERT AND ORIENTED X4. NO SPUTUM CULTURE RESULTS. MRI AFTER RESULTS PER . REACTION TO ZOSYN AND FLUSHING OF FACE. NOTIFY . DENIES PAIN OR SOB. CONTINUE PLAN OF CARE AND SAFETY PRECAUTIONS.
[2017-05-26 20:48] VITALS: BP 136/64
--- NOTE | 2017-05-26 22:00 | NUR ---
PT AWAKE, ALERT, ORIENTED, LYING IN BED, LOOKING AT TELEVISION, DENIES ANY NEEDS. CONTINUE TO MONITOR CLOSELY. BED LOW, CALL LIGHT IN REACH, SIDE RAILS X 2, HOB 35 DEGREES.
[2017-05-27] VITALS: BP 137/65
--- NOTE | 2017-05-27 06:14 | NUR ---
PT UP TO BATHROOM, BECAME EXTREMELY SHORT OF BREATH, RESPIRATORY IN ROOM NOW. PTS O2 SAT IS 94% WITH A PULSE OF 102. PT STATES SHE HAS BEEN SOB WITH EXERTION, HOWEVER PT STATES THIS TIME IT IS WORSE. WILL CONTINUE TO MONITOR CLOSELY.
--- NOTE | 2017-05-27 07:15 | NUR ---
RECIEVED REPORT ON PATIENT, PATIENT IS ALERT AND ORIENTED AT THIS TIME. PATIENT DENIES ANY NEEDS OR PAIN AT THIS TIME. BED IS LOW AND LOCKED, CALL LIGHT IN REACH. WILL CONT TO MONITOR PATIENT. CPOC. IV IN L FA INFUSING WITH NS AT 75ML/HR. 3L/MIN VIA NC OF O2. NAD NOTED.
[2017-05-27 08:00] VITALS: BP 105/54
--- NOTE | 2017-05-27 09:00 | NUR ---
MORNING MEDICATIONS GIVEN, ASSESSMENT DONE. DENIES ANY NEEDS. CPOC
--- NOTE | 2017-05-27 10:00 | NUR ---
WOUND CARE NURSE AT BEDSIDE STATED THERE WAS NOTHING TO CULTURE. WILL NOTIFY DR. ROB
--- NOTE | 2017-05-27 11:36 | NUR ---
PATIENT RESTING, WAITING ON LUNCH DENIES ANY NEEDS AT THIS TIME. BED LOW AND LOCKED. CPOC
--- NOTE | 2017-05-27 11:50 | NUR ---
PATIENT WENT TO BATHROOM AND IS BACK IN BED, PATIENT CALLED ME TO ROOM STATED SHE WAS HAVING TROUBLE BREATHING AND WAS FLUSHED FEELING, O2 SAT 96% ON 3L/MIN VIA NC BP 152/77 HR 103 RR 20. INSTRUCTED PATIENT ON DEEP BREATHING, PATIENT IS FEELING BETTER. BACK IN BED RESTING. WILL MONITOR
--- NOTE | 2017-05-27 12:38 | NUR ---
Wound care: No open wound on toe - culture unobtainable
[2017-05-27 13:02] VITALS: BP 181/76
--- NOTE | 2017-05-27 13:15 | NUR ---
PATIENT GONE TO MRI
[2017-05-27 13:30] VITALS: BP 152/77
--- NOTE | 2017-05-27 14:00 | NUR ---
PATIENT BACK FROM MRI, IV HOOKED BACK UP. L FA IV WITH NS AT 75ML/HR. CPOC
--- NOTE | 2017-05-27 15:47 | NUR ---
PATIENT BP REPORTED TO ME AT 183/86, CALLED DR AGUILERA OFFICE, SPOKE WITH HIS NURSE, STATED SHE WOULD LET DR AGUILERA KNOW AND GET BACK WITH ME. CPOC
[2017-05-27 16:23] VITALS: BP 186/83
--- NOTE | 2017-05-27 18:04 | NUR ---
PATIENT BP RECHECKED AND 187/75. HR 91, O2 SAT 95%. WILL PAGE CPOC
--- NOTE | 2017-05-27 18:35 | NUR ---
WAITING ON RETURN CALL FROM DR AGUILERA. CPOC
[2017-05-27 20:00] VITALS: BP 129/64
--- NOTE | 2017-05-27 20:12 | NUR ---
PT AWAKE, ALERT, ORIENTED, C/O GREAT REDNESS IN HER FACE AND CHEST. PT STILL DEMONSTRATES EXERTIONAL DYSPNEA, AND HAS DIFFICULTY AFTER GETTING BACK IN BED FROM AMBULATING. PT DENIES ANY NEEDS, WILL CONTINUE TO MONITOR PT CLOSELY. BED LOW, CALL LIGHT IN REACH, SIDE RAILS X 2, HOB 40 DEGREES. WILL GET BEDSIDE COMMODE FOR PTS COMFORT AND SAFETY.
--- NOTE | 2017-05-27 23:30 | NUR ---
PT AWAKE, ALERT, ORIENTED, DOING HER UPDRAFT TX AT THIS TIME. PT REMAINS RED IN HER FACE AND CHEST, AND GETS HOT EASILY. FAN HAS BEEN PLACED IN PTS ROOM FOR ADDITIONAL COMFORT. WILL CONTINUE TO MONITOR CLOSELY.
[2017-05-28] VITALS: BP 117/72
[2017-05-28 04:00] VITALS: BP 123/64
[2017-05-28 04:30] LABS: BASOPHILS 0 % (0-2); EOSINOPHILS 0 % (0-7); HEMATOCRIT 39.4 % (36.0-48.0); HEMOGLOBIN 12.9 g/dL (12-16); IMMATURE GRANULOCYTES 0.5 % (0-5); LYMPHOCYTES 7.7 % (15-50); MCH 28.2 pg (26.0-34.0); MCHC 32.7 g/dL (31.0-37.0); MEAN PLATELET VOLUME 10.8 fL (7.4-10.4); MONOCYTES 3.4 % (2-11); NEUTROPHILS 88.4 % (40-80); PLATELET COUNT 171 10x3/uL (130-400); RBC 4.58 10x6/uL (4.00-5.40); RDW 13.5 % (11.5-14.5); WBC 7.3 10x3/uL (4.8-10.8)
[2017-05-28 04:55] LABS: ALBUMIN 3.2 g/dL (3.4-5.0); ANION GAP 13.6 mmol/L (8-16); BILIRUBIN - TOTAL 0.2 mg/dL (0.2-1.3); CALCIUM 8.7 mg/dL (8.5-10.1); CARBON DIOXIDE 23.6 mmol/L (21.0-32.0); CREATININE - SERUM 0.9 mg/dL (0.6-1.3); POTASSIUM - SERUM 4.2 mmol/L (3.5-5.1); PROTEIN - SERUM 6.2 g/dL (6.4-8.2)
--- NOTE | 2017-05-28 06:09 | NUR ---
PT RESTING COMFORTABLY, DENIES ANY NEEDS. CONTINUE TO MONITOR CLOSELY.
--- NOTE | 2017-05-28 07:47 | NUR ---
AM ROUNDING DONE. PT IS ALERT AND AWAKE IN ROOM. ON MONITOR, PT IS NSR. SHE IS WEARING OXYGEN 3L VIA NC. SHE IS STILL SOB WITH MINIMAL EXERTION. PT DENIES ANY COMPLAINTS, BUT SHE IS CONCERNED ABOUT INTERMITTENT FLUSHING THAT SHE HAS EXPERIENCED FROM HER CHEST UP. MD IS AWARE OF FLUSHING. PT CONT ON IV STEROIDS AND ABX. IV ACCESS- LEFT FOREARM WITH NS RUNNING AT 75CC/HR. WILL CONT TO MONITOR.
[2017-05-28 08:22] VITALS: BP 145/66
--- NOTE | 2017-05-28 11:21 | NUR ---
RECIEVED CALL FROM LAB, POSITIVE BLOOD CULTURES, GM + COCCI, DR. JARA'S OFFICE CALLED AND SPOKE WITH HIS NURSE WHO WILL RELAY MESSAGE TO HIM.
[2017-05-28 11:48] VITALS: BP 125/60
[2017-05-28 16:04] VITALS: BP 129/63
--- NOTE | 2017-05-28 16:25 | NUR ---
MRSA CULTURE NARES COMPLETED AND TAKEN TO THE LAB AT 1605. WOUND CULTURE CANNOT BE DONE PT DOES NOT HAVE ANY OPEN WOUNDS. DR. PRIETO ORDERED EKG, TROPONINS, AND MD CONSULT D/T PT WITH C/O CHEST PRESSURE WITH EXERTION. EKG COMPLETED AND PUT IN CHART. PT CURRENTLY WITHOUT COMPLAINT OF CP, NAUSEA, OR DIZZINESS AT REST IN BED. SHE IS ALERT AND AWAKE. SHE DOES CONT TO BE SOB WITH EXERTION. REMAINS ON 3L OXYGEN VIA NC WITH BREATHING TX ORDERED. PT CONTINUES TO HAVE EPISODES OF FLUSHING THAT HAVE IMPROVED WITH BENADRYL. SECOND PRN DOSE GIVEN THIS AFTERNOON. DR. PRIETO ALSO D/C'D LEVAQUIN. CONTINUES ON PO BACTRIM. NOTIFIED DR. PRIETO OF PT'S POSITIVE BLOOD CULTURES WITH GM + COCCI. DR. AGUILERA EXPLAINED THAT PT'S SPOUSE HAD QUESTIONED ABOUT THE NEED FOR HOSPICE CARE. DR. AGUILERA ASKED ME TO PASS ON THIS INFO TO DR. PRIETO, WHICH I DID. PT HAS A SIGNIFICIANT OTHER, NOT A SPOUSE. PT DENIES ANY NEEDS AT THIS TIME. WILL CONTINUE TO MONITOR.
[2017-05-28 19:00] VITALS: BP 143/57
--- NOTE | 2017-05-28 19:29 | NUR ---
PT SITTING IN BED WATCHING TELEVISION. DENIES NEEDS AT THIS TIME WILL CONTINUE TO MONITOR.
[2017-05-29] VITALS: BP 128/57
[2017-05-29 04:00] VITALS: BP 131/52
[2017-05-29 05:15] LABS: BASOPHILS 0 % (0-2); EOSINOPHILS 0 % (0-7); HEMATOCRIT 40.6 % (36.0-48.0); HEMOGLOBIN 13.2 g/dL (12-16); IMMATURE GRANULOCYTES 0.8 % (0-5); LYMPHOCYTES 8.8 % (15-50); MCHC 32.5 g/dL (31.0-37.0); MEAN PLATELET VOLUME 10.8 fL (7.4-10.4); MONOCYTES 3.8 % (2-11); NEUTROPHILS 86.6 % (40-80); PLATELET COUNT 168 10x3/uL (130-400); RBC 4.72 10x6/uL (4.00-5.40); RDW 13.6 % (11.5-14.5); WBC 7.3 10x3/uL (4.8-10.8)
[2017-05-29 05:35] LABS: ANION GAP 13.7 mmol/L (8-16); BILIRUBIN - TOTAL 0.2 mg/dL (0.2-1.3); CALCIUM 8.5 mg/dL (8.5-10.1); CARBON DIOXIDE 23.7 mmol/L (21.0-32.0); POTASSIUM - SERUM 4.4 mmol/L (3.5-5.1)
--- NOTE | 2017-05-29 07:30 | NUR ---
REPORT RECIEVED. RR EVEN AND UNLABORED. PT DENIES NEEDS AT THIS TIME. REORTS FEELING SHORT OF BREATH AND PRESSURE ON HER CHEST. CARDIAC ENZYMES WNL. PT REQUESTED TO KNOW WHAT LAB VALUES WERE. REPORTED TROPONIN TO PT. ASSESSMENT PERFORMED. WILL CTM.
[2017-05-29 08:00] VITALS: BP 138/63
--- NOTE | 2017-05-29 11:35 | NUR ---
PT APPERARS TO BE FLUSHED AND REPORTS FEELING HOT. WILL GIVE PRN BENEDRYL AND CTM. ASSITED PT TO USE BED BEDOYA.
[2017-05-29 12:00] VITALS: BP 135/57
[2017-05-29 16:00] VITALS: BP 142/54
--- NOTE | 2017-05-29 16:57 | NUR ---
PT REQUESTING PRN COUGH SYRUP. PT REPORTS FEELING SOB DUE TO EXCESSIVE COUGHING. WILL GIVE AND CTM.
--- NOTE | 2017-05-29 18:32 | NUR ---
PT RESTING QUIELTY, RR EVEN AND UNLABORED. DENIES NEEDS AT THIS TIME. WILL GIVE REPORT ON PT CONDITION FOR THE DAY.
--- NOTE | 2017-05-29 19:23 | NUR ---
PT IN BED WATCHING TELEVISION AND EATING CHIPS. REQUEST COUGH SYRUP WHEN IT IS DUE AT 2300. DENIES FURTHER NEEDS AT THIS TIME.
[2017-05-29 20:00] VITALS: BP 141/62
[2017-05-30] VITALS: BP 139/69
--- NOTE | 2017-05-30 00:02 | NUR ---
PT RESTING WITH EYES CLOSED. RESP EVEN AND REGULAR. SR UP X2, CALL LIGHT WITHIN REACH.
[2017-05-30 04:00] VITALS: BP 140/72
[2017-05-30 04:56] LABS: BASOPHILS 0.1 % (0-2); HEMATOCRIT 39.8 % (36.0-48.0); HEMOGLOBIN 13.2 g/dL (12-16); IMMATURE GRANULOCYTES 1.9 % (0-5); LYMPHOCYTES 23.6 % (15-50); MCH 28.6 pg (26.0-34.0); MCHC 33.2 g/dL (31.0-37.0); MCV 86.1 fL (80.0-100.0); MEAN PLATELET VOLUME 10.8 fL (7.4-10.4); MONOCYTES 8.7 % (2-11); NEUTROPHILS 64.7 % (40-80); PLATELET COUNT 185 10x3/uL (130-400); RBC 4.62 10x6/uL (4.00-5.40); RDW 13.5 % (11.5-14.5); WBC 8.1 10x3/uL (4.8-10.8)
[2017-05-30 05:01] LABS: ANION GAP 11.2 mmol/L (8-16); CALCIUM 8.2 mg/dL (8.5-10.1); CARBON DIOXIDE 26.5 mmol/L (21.0-32.0); CREATININE - SERUM 0.9 mg/dL (0.6-1.3)
[2017-05-30 05:04] LABS: POTASSIUM - SERUM 3.7 mmol/L (3.5-5.1)
--- NOTE | 2017-05-30 07:30 | NUR ---
REPORT RECIEVED. RR EVEN AND UNLABORED. PT DENIES NEEDS AT THIS TIME. ASSESSMENT PERFORMED, PT ALERT AND ORIENTED X4. WILL CTM.
[2017-05-30 08:00] VITALS: BP 124/49
--- NOTE | 2017-05-30 09:27 | NUR ---
DR. ANDERSON AT BEDSIDE, ASSESSING PT. MORNING MEDS GIVEN. PT REQUETED TO TAKE BATH TODAY. WILL CTM.
--- NOTE | 2017-05-30 13:26 | NUR ---
ASSISTED PT WITH BATH AND LINEN CHANGE. ORAL CARE PER PATIENT. PT BECAME SOB DURING BATH, BUT IS NOW RESTING COMFORTABLY IN ROOM. WILL CTM.
--- NOTE | 2017-05-30 15:06 | NUR ---
PT RESTING RUPESH, ASSISTED PT TO VOID USING BED BEDOYA. OBTAINED CONSENTS AND EXPLAINED PROCEDURE TO PT. SHE VERBALIZED UNDERSTANDING SAYING "I JUST WANT TO GET IT OVER WITH." WILL CTM.
[2017-05-30 16:00] VITALS: BP 129/55
--- NOTE | 2017-05-30 18:15 | NUR ---
PT RESTING QUIETLY, FAMILY AT BEDSIDE. PT VERBALIZED SATISFACTION WITH CARE TODAY. RR EVEN AND UNLABORED, WILL GIVE REPORT ON PT CONDTION FOR THE DAY.
[2017-05-30 19:00] VITALS: BP 132/62
--- NOTE | 2017-05-30 21:59 | NUR ---
PATIENT IS ALERT, FAMILY AT BEDSIDE. CALL LIGHT IN REACH. DR STAFFORD WAS NOTIFIED BECAUSE PATIENT WANTS TO CONTINUE HOME NEURONTIN HERE, THIS WAS APPROVED AND ORDER NOTED.
--- NOTE | 2017-05-30 22:03 | NUR ---
PATIENT IS ALERT AND WATCHING TV, DENIES NEEDS OR PAIN AT THIS TIME. CALL LIGHT IN REACH.
[2017-05-31] VITALS: BP 121/45
[2017-05-31 04:22] VITALS: BP 140/46
[2017-05-31 04:49] LABS: BASOPHILS 0.1 % (0-2); EOSINOPHILS 0 % (0-7); HEMATOCRIT 40.1 % (36.0-48.0); HEMOGLOBIN 13.2 g/dL (12-16); IMMATURE GRANULOCYTES 1.8 % (0-5); LYMPHOCYTES 10.3 % (15-50); MCH 28.1 pg (26.0-34.0); MCHC 32.9 g/dL (31.0-37.0); MCV 85.3 fL (80.0-100.0); MEAN PLATELET VOLUME 10.6 fL (7.4-10.4); MONOCYTES 5.3 % (2-11); NEUTROPHILS 82.5 % (40-80); PLATELET COUNT 181 10x3/uL (130-400); RDW 13.2 % (11.5-14.5); WBC 9.2 10x3/uL (4.8-10.8)
[2017-05-31 04:58] LABS: ANION GAP 12.8 mmol/L (8-16); CALCIUM 7.8 mg/dL (8.5-10.1); CARBON DIOXIDE 26.4 mmol/L (21.0-32.0); CREATININE - SERUM 0.9 mg/dL (0.6-1.3); POTASSIUM - SERUM 4.2 mmol/L (3.5-5.1)
--- NOTE | 2017-05-31 07:20 | NUR ---
ALERT AND ORIENTED X4. RESTING IN BED. PRE-OP FOR UNDER BASTER COMPLETE. TAKEN TO UNDER BASTER VIA BED. CONTINUE PLAN OF CARE AND SAFETY PRECAUTIONS.
[2017-05-31 08:00] VITALS: BP 123/82
--- NOTE | 2017-05-31 09:10 | NUR ---
ARRIVE BACK TO ROOM VIA BED FROM DIRECTOR OF CONSULTING SERVICES. RT GROIN DRESSING CLEAN DRY INTACT. CLEAN CATH. REMAIN FLAT FOR 2 HOURS. FAMILY AT BEDSIDE. BP-118/49, P-73, R-16, T-97.5, O2-94% WITH 4L NC. PULSES +2 BILATERALLY. CONTINUE PLAN OF CARE. BED LOCKED AND LOW. CALL LIGHT IN REACH. TWO SIDERAILS UP. SINUS RHTHYM ON TELEMETRY. REFUSE SCDs. RECIEVES LOVENOX INJ. WOUND CULTURE CANCELLED. NO WOUND TO COLLECT FROM.
[2017-05-31 12:00] VITALS: BP 108/46
--- NOTE | 2017-05-31 12:43 | NUR ---
Nutrition Follow Up: Pt with good po intake. +BM. Wt stable. Pt continues at low nutritional risk. RD will continue to monitor.
--- NOTE | 2017-05-31 13:55 | NUR ---
* Is the patient Alert and Oriented? Yes 0 * How many steps to enter\exit or inside your home? 6 steps 0 * PCP DR AGUILERA 0 * Pharmacy [facility] 0 * Preadmission Environment Home with Family 0 * ADLs Independent 0 * Equipment Nebulizer Oxygen Rolling Walker 0 * Other Equipment N/A 0 * List name and contact numbers for known caregivers / representatives who currently or will assist patient after discharge: JOHNATHAN TOBAR -DAUGHTER- [phone] MAURISIO PEREIRA - S/O- [phone] 0 * Community resources currently utilized None 0 * Please name any agencies selected above. N/A 0 * Additional services required to return to the preadmission environment? No 0 * Can the patient safely return to the preadmission environment? Yes 0 * Has this patient been hospitalized within the prior 30 days at any hospital? Yes PATIENT HAD AORTOFEMORAL RUNOFF AND ABD AORTOGRAPHY 05/17 WHICH SJE STATES WAS CLEAR. NO FLOW LIMITING STENOSIS.
--- NOTE | 2017-05-31 14:21 | NUR ---
CM MET PATIENT AT HER BEDSIDE.. SHE A HAD CARDIAC CATH EARLIER TODAY BUT WAS ALERT AND ORIENTED X3. SHE PLANS TO RETURN TO HOME AT DISCHARGE. SHE LIVES WITH HER SIGNIFICANT OTHER, MAURISIO PEREIRA. "HE IS A GOOD MAN". HIS CONTACT PHONE NUMBER IS [phone]. SHE STATES MAURISIO OR HER DAUGHTER WILL PROVIDE TRANSPORTATION TO HOME. JOHNATHAN TOBAR IS HER DAUGHTER. HER CONTACT NUMBER IS [phone]. THERE ARE 6 STEPS W/ A HANDRAIL TO ENTER HER HOME IN THE FRONT AND 1 STEP AT SECONDARY ENTRANCE. AT HOME THE PATIENT AMBULATES W/ A WALKER. SHE HAS PORTABLE AND STATIONARY OXYGEN UNITS. WEARS O2 PRIMARILY AT NIGHT. SHE ALSO HAS A NEBULIZER. ABRIL IS HER DME PROVIDER. [facility] PATIENT HAS A CIVIL DESIGNER FROM [employer] BUT CANNOT RECALL HER NAME AT PRESENT, ?? YUNIER. SHE HAS HEARD FROM HER RECENTLY. DENIES ANY NEEDS, DECLINES HOME HEALTH AT THIS TIME.
[2017-05-31 16:00] VITALS: BP 149/57
[2017-05-31 19:13] VITALS: BP 151/72
[2017-06-01] VITALS (7 sets, daily range): BP systolic 113–141; BP diastolic 48–59
--- NOTE | 2017-06-01 03:39 | NUR ---
PATIENT IS ALERT, STATED TO ME "I WANT MY IV TAKEN OUT SINCE I AM GOING HOME THIS MORNING". I TOOK THE SALINE LOCKED IV OUT. CALL LIGHT IN REACH.
--- NOTE | 2017-06-01 04:26 | NUR ---
SWISS TYPE SCREW MACHINE OPERATOR AT BEDSIDE TO OBTAIN VITALS, CALL LIGHT IN REACH. WILL CONTINUE WITH PLAN OF CARE.
--- NOTE | 2017-06-01 18:08 | NUR ---
ALERT AND ORIENTED X4. SITTING ON SIDE OF BED. DENIES ANY NEEDS. NO CHANGE. CONTINUE PLAN OF CARE AND SAFETY PRECAUTIONS.
--- NOTE | 2017-06-01 19:25 | NUR ---
PT IN BED WATCHING TELEVISION. DENIES NEEDS AT THIS TIME.
[2017-06-02 04:00] VITALS: BP 117/63
--- NOTE | 2017-06-02 05:08 | NUR ---
PT RESTING COMFORTABLY, CONTINUE TO MONITOR.
[2017-06-02 05:24] LABS: ANION GAP 10.6 mmol/L (8-16); CALCIUM 7.9 mg/dL (8.5-10.1); CARBON DIOXIDE 28.2 mmol/L (21.0-32.0); POTASSIUM - SERUM 3.8 mmol/L (3.5-5.1)
[2017-06-02 07:51] VITALS: BP 130/53
[2017-06-02] MEDS ORDERED: BENADRYL A12.5 MG/5 PO (08:00)
[2017-06-02] MEDS ORDERED: OMNICEF300 MG PO (08:01)
--- NOTE | 2017-06-02 09:14 | NUR ---
Patient Name: MARIELOS TALAMANTES Encounter No: [id number] : 1940 Primary Insurance: [facility] ADVANTAGE [facility] PFFS Anticipated DC Date: Planned Disposition: Home DCP follow-up note: CM MET WITH PT IN ROOM TO DISCUSS DISCHARGE NEEDS AND PLANNING. CM DISCUSSED AVAILABILITY OF HOME HEALTH, REHAB SERVICES AND MEDICAL EQUIPMENT. PT DENIES DISCHARGE NEEDS. SIGNIFCANT OTHER TO TRANSPORT HOME AT DISCHARGE TODAY. IMPORTANT MESSAGE FROM MEDICARE PROVIDED AND EXPLAINED. Miles Coffey, CASE MANAGEMENT
--- NOTE | 2017-06-02 11:26 | NUR ---
ALERT AND ORIENTED X4. SITTING UP IN CHAIR. SPOUSE AT BEDSIDE. DISCHARGE INSTRUCTIONS GIVEN VERBALLY AND WRITTEN. DISCHARGE PAPERS SIGNED ON CHART. NO IV. ESCORT TO RIDE VIA WHEELCHAIR. REMAINS FREE FROM INJURY.
--- NOTE | 2017-06-10 12:47 | EC ---
PATIENT:MARIELOS TALAMANTES DATE OF SERVICE: 05/24/17 SEX: F MEDICAL RECORD: [id number] DATE OF : [birth year] LOCATION:D.M2 D.210 AGE OF PATIENT: 77 ADMISSION DATE: 05/24/17 REFERRING PHYSICIAN: INTERPRETING PHYSICIAN: SON GAY MD ECHOCARDIOGRAM REPORT ECHO CHARGES 4 ECHO COMPLETE CLINICAL DIAGNOSIS: CHEST / CHF HX OF CAD/VABG/STENT ECHOCARDIOGRAPHIC MEASUREMENTS (adult normal given) AC root (d.<3.7cm) 3.2 cm LV Septum d (<1.2 cm> 1.3 cm Valve Excursion 1.7 cm LV Septum (systole) 1.5 cm Left Atria (s.<4.0cm> 3.8 cm LVPW d(<1.2cm) 1.6 cm RV (d.<2.3cm) 3.7 cm LVPW (sytole) 1.7 cm LV diastole(<5.6CM) 5.1 cm MV E-F(>70mm/sec) cm LV systole 3.0 cm LVOT Diameter 1.8 cm MV exc.(>10mm) 1.8 cm Est.ejection fraction (50-75%) % Pericardial Effusion N DOPPLER: LVIT cm/sec A 77.0 cm/sec E 102 cm/sec LA cm/sec RVSP 24 mmHg LVOT 112 cm/sec AOP1/2T m/s Asc. Ao 146 cm/sec RVOT cm/sec RA cm/sec PA cm/sec AV Gradient Peak 8.49 mmHg AV Mean 4.65 mmHg AV Area 2.4 cm MV Gradient Peak 8.12 mmHg MV Mean 1.93 mmHg MV Area cm COMMENTS: Manager Maintenance: Heri SCOTT Transcription: Clinton Gay TAPE# PACS DATE OF SERVICE: 05/30/2017 PROCEDURE: Transthoracic echocardiogram FINDINGS: 1. The left ventricle shows evidence of mild concentric left ventricular hypertrophy. Inflow characteristics are normal. The overall ejection fraction is 65%. There is no demonstrated regional wall motion abnormalities. 2. Mitral valve shown to be slightly thickened. 3. The left atrium shows to be normal size, normal function. ECHOCARDIOGRAM REPORT [id number] MARIELOS TALAMANTES 4. The aortic valve is structurally normal without evidence of significant stenosis or regurgitation. 5. The right ventricle is mild to moderately dilated with normal function. 6. The tricuspid valve shows trace tricuspid regurgitation with normal right ventricular systolic pressure is demonstrated on this study. 7. The pericardium is normal without pericardial effusion. 8. The right atrium is mild to moderately enlarged. 9. The inferior vena cava was not well demonstrated. In conclusion, the patient has evidence of mild hypertensive heart disease without abnormalities demonstrated on the structure of the heart or significant valvular abnormalities. There is mild dilatation of the right-sided structures without evidence of right-sided elevation in pressures. TRANSINT:[id number] Voice Confirmation ID: [id number] DOCUMENT ID: [id number] 06/08/2017 Edited to correct date of service, dm. SON GAY MD at 1247 CC: [id number] DICTATION DATE: 05/31/17 0657 FIELD PLACEMENT DIRECTOR: 05/31/17 0944 DIS IN 06/02/17 [facility] [address] [place] [address]
== END 2017-06-02 11:28 | disposition home or self-care (01) | DRG 194 ==
LOC: D.M2 14:24
PROVIDERS: Family Medicine; Internal Medicine Cardiovascular Disease; ADMIT Family Medicine
PROC: B2121ZZ Fluoroscopy of Single Coronary Artery Bypass Graft using Low Osmolar Contrast (ICD-10-PCS; 2017-05-31)
PROC: B2151ZZ Fluoroscopy of Left Heart using Low Osmolar Contrast (ICD-10-PCS; 2017-05-31)
PROC: 4A023N7 Measurement of Cardiac Sampling and Pressure, Left Heart, Percutaneous Approach (ICD-10-PCS; 2017-05-31)
PROC: B2111ZZ Fluoroscopy of Multiple Coronary Arteries using Low Osmolar Contrast (ICD-10-PCS; principal; 2017-05-31 09:30)
DX: J18.9 Pneumonia, unspecified organism (principal); J44.0 Chronic obstructive pulmonary disease with (acute) lower respiratory infection; J44.1 Chronic obstructive pulmonary disease with (acute) exacerbation; L03.032 Cellulitis of left toe; J30.9 Allergic rhinitis, unspecified; G25.81 Restless legs syndrome; I25.10 Atherosclerotic heart disease of native coronary artery without angina pectoris; Z95.5 Presence of coronary angioplasty implant and graft; Z95.1 Presence of aortocoronary bypass graft; K21.9 Gastro-esophageal reflux disease without esophagitis; E78.5 Hyperlipidemia, unspecified; M17.11 Unilateral primary osteoarthritis, right knee; I10 Essential (primary) hypertension; Z87.891 Personal history of nicotine dependence; I70.209 Unspecified atherosclerosis of native arteries of extremities, unspecified extremity; M54.9 Dorsalgia, unspecified

== ENCOUNTER 2017-06-29 09:19 | Inpatient (IN) | payer MEDICARE ==
[~2017-06-29 09:19] MED LIST changes: +ASPIRIN EC81 M1 PO; +BENADRYL A12.5 MG/5 PO; +MAG-OX 400 MG400 MG PO; +MUCINEX1200 MG/BO PO; +OMNICEF300 MG PO; +TOPROL XL50 MG PO
[2017-06-29 11:18] LABS: ALBUMIN 3.8 g/dL (3.4-5.0); ANION GAP 15.6 mmol/L (8-16); BILIRUBIN - TOTAL 0.36 mg/dL (0.2-1.3); CALCIUM 9.5 mg/dL (8.5-10.1); CARBON DIOXIDE 28.7 mmol/L (21.0-32.0); CREATININE - SERUM 0.8 mg/dL (0.6-1.3); POTASSIUM - SERUM 4.3 mmol/L (3.5-5.1); PROTEIN - SERUM 7.2 g/dL (6.4-8.2)
[2017-06-29 11:53] VITALS: BP 155/71
[2017-06-29 13:16] LABS: APPEARANCE CLEAR (CLEAR); BILIRUBIN NEGATIVE (NEGATIVE); COLOR YELLOW (YELLOW); GLUCOSE NEGATIVE (NEGATIVE); KETONE NEGATIVE (NEGATIVE); NITRITE NEGATIVE (NEGATIVE); PROTEIN NEGATIVE (NEGATIVE); UROBILINOGEN NORMAL (NORMAL)
[2017-06-29 15:45] VITALS: BP 111/48
[2017-06-29 18:33] VITALS: BP 149/77; BMI 31.8
[2017-06-29 20:00] VITALS: BP 113/84
[2017-06-30] VITALS: BP 131/60
[2017-06-30 05:09] LABS: BASOPHILS 0.4 % (0-2); EOSINOPHILS 2.7 % (0-7); HEMATOCRIT 41.2 % (36.0-48.0); HEMOGLOBIN 13.4 g/dL (12-16); IMMATURE GRANULOCYTES 1.1 % (0-5); LYMPHOCYTES 35.2 % (15-50); MCHC 32.5 g/dL (31.0-37.0); MEAN PLATELET VOLUME 10.4 fL (7.4-10.4); NEUTROPHILS 52.6 % (40-80); PLATELET COUNT 184 10x3/uL (130-400); RBC 4.79 10x6/uL (4.00-5.40); RDW 13.4 % (11.5-14.5); WBC 4.7 10x3/uL (4.8-10.8)
[2017-06-30 05:30] LABS: ANION GAP 8.7 mmol/L (8-16); BILIRUBIN - TOTAL 0.41 mg/dL (0.2-1.3); CALCIUM 8.5 mg/dL (8.5-10.1); CARBON DIOXIDE 29.2 mmol/L (21.0-32.0); CREATININE - SERUM 0.9 mg/dL (0.6-1.3); POTASSIUM - SERUM 3.9 mmol/L (3.5-5.1)
--- NOTE | 2017-06-30 06:15 | NUR ---
2000)REC'D. AT [facility].OF SHIFT UP AND ABOUT IN ROOM.DENIES PAIN OR NAUSEA AT PRESENT TIME.REINFORCED NPO AT MIDNITE FOR EGD. VOICES UNDERSTANDING WILL CONTINUE TO MONITOR FOR ANY CHGES. AND FOLLOW CURRENT PLAN OF CARE
--- NOTE | 2017-06-30 08:00 | NUR ---
RECIEVED PT DURING WALKING ROUNDS. PT RESTING IN BED WITH COMPLAINTS OF PAIN OF A 5 ON A SCALE OF 1-10. ASSESSMENT DONE PER FLOWSHEET. BED IN LOW POSITION AND CALL LIGHT WITHIN REACH. WILL CONTINUE TO MONITOR.
[2017-06-30 08:37] VITALS: BP 133/58
[2017-06-30 12:11] VITALS: BP 124/58; BMI 31.7
--- NOTE | 2017-06-30 13:25 | NUR ---
PEPCID 20 MG SIVP. ALSO GAVE SCHEDULED IV REGLAN. NS ALREADY INFUSING SO 500 CC BAG WILL BE RETURNED.
--- NOTE | 2017-06-30 14:00 | NUR ---
Patient Name: MARIELOS TALAMANTES Admission Status: Urgent Accout number: [id number] Admission Date: 06-29-2017 : 1940 Admission Diagnosis:UNSPECIFIED ABDOMINAL PAIN Attending: IRINA AGUILERA Current LOS: 1 Anticipated DC Date: 07-05-2017 Planned Disposition: Home Primary Insurance: [employer] [facility] Discharge Planning Comments: CM MET WITH PATIENT REGARDING D/C NEEDS AND PLANS. PATIENT STATED SHE LIVES WITH HER FRIEND (MAURISIO) AND HE WILL DRIVE HER HOME AT DISCHARGE. PATIENT STATED THERE ARE 2 STEPS W/RAILS TO ENTER HOME AND NO STAIRS INSIDE. PATIENT STATED SHE IS INDEPENDENT WITH HER CARE AND HAS A WALKER, WHEELCHAIR, BSCOMMODE, CANE, OXYGEN, NEBULIZER, AND PORTABLE O2 AT HOME. [facility] IS THE PROVIDER FOR THE OXYGEN. PATIENTS PCP IS DR. AGUILERA AND PHARMACY IS [facility]. PATIENT DOES NOT WANT HOME HEALTH. CM WILL CONTINUE TO FOLLOW PATIENT WITH D/C NEEDS AND PLANS. PCP DR. AGUILERA [facility]- [phone] MAURISIO (FRIEND) [phone] Vice President Media Relations: Rachel Joseph Is the patient Alert and Oriented? Yes 0 * How many steps to enter\exit or inside your home? 2 w/rails 0 * PCP DR. AGUILERA 0 * Pharmacy [facility] 0 * Preadmission Environment Home with Family 0 * ADLs Independent 0 * Equipment Bedside Commode Cane Nebulizer Oxygen Walker Wheelchair 0 * Other Equipment PORTABLE O2 OXYGEN [facility] 0 * List name and contact numbers for known caregivers / representatives who currently or will assist patient after discharge: MAURISIO [phone] (BOYFRIEND) 0 * Community resources currently utilized None 0 * Additional services required to return to the preadmission environment? Yes 0 * Can the patient safely return to the preadmission environment? Yes 0 * Has this patient been hospitalized within the prior 30 days at any hospital? Yes 0 Grand Total: 0
[2017-06-30 20:00] VITALS: BP 130/60
--- NOTE | 2017-06-30 23:53 | NUR ---
EYES CLOSED RESPIRATIONS WITH EASE AND UNLABORED.
[2017-07-01] VITALS: BP 113/66
[2017-07-01 05:14] LABS: BASOPHILS 0.6 % (0-2); EOSINOPHILS 2.5 % (0-7); HEMATOCRIT 39.3 % (36.0-48.0); HEMOGLOBIN 12.8 g/dL (12-16); IMMATURE GRANULOCYTES 0.8 % (0-5); LYMPHOCYTES 31.2 % (15-50); MCH 28.4 pg (26.0-34.0); MCHC 32.6 g/dL (31.0-37.0); MCV 87.1 fL (80.0-100.0); MEAN PLATELET VOLUME 10.5 fL (7.4-10.4); MONOCYTES 10.5 % (2-11); NEUTROPHILS 54.4 % (40-80); PLATELET COUNT 187 10x3/uL (130-400); RBC 4.51 10x6/uL (4.00-5.40); RDW 13.7 % (11.5-14.5); WBC 4.7 10x3/uL (4.8-10.8)
[2017-07-01 05:45] LABS: ALBUMIN 2.9 g/dL (3.4-5.0); ANION GAP 10.6 mmol/L (8-16); BILIRUBIN - TOTAL 0.2 mg/dL (0.2-1.3); CALCIUM 7.7 mg/dL (8.5-10.1); CARBON DIOXIDE 28.3 mmol/L (21.0-32.0); CREATININE - SERUM 0.9 mg/dL (0.6-1.3); POTASSIUM - SERUM 3.9 mmol/L (3.5-5.1); PROTEIN - SERUM 5.8 g/dL (6.4-8.2)
--- NOTE | 2017-07-01 07:20 | NUR ---
AWAKE AND ALERT AT THIS TIME RECEIVING RESPIRATORY TREATMENT. NPO FOR PIPIDA SCAN. DENIES NEEDS AT THIS TIME. CALL LIGHT IN REACH, WILL CONTINUE WITH PLAN OF CARE.
--- NOTE | 2017-07-01 08:47 | NUR ---
SCHEDULED MEDICATIONS ADMINISTERED WITH SMALL SIP OF ICE WATER. REMAINS NPO OTHERWISE FOR PIPIDA SCAN.
[2017-07-01 09:37] VITALS: BP 124/65
[2017-07-01 13:06] VITALS: BP 134/67
--- NOTE | 2017-07-01 13:55 | NUR ---
22G IV SITED TO PT'S RIGHT FOREAM X1 ATTEMPT. BLOOD RETURN PRESENT. WILL CONTINUE WITH PLAN OF CARE.
--- NOTE | 2017-07-01 13:55 | NUR ---
IV TO RIGHT WRIST LEAKING AROUND INSERTIO SITE. REMOVED WITH CATH TIP INTACT.
--- NOTE | 2017-07-01 15:06 | NUR ---
TAKEN FOR PIPIDA SCAN AT THIS TIME.
--- NOTE | 2017-07-01 16:30 | NUR ---
BACK FROM PIPIDA SCAN. PROVIDED PT WITH ICE WATER AND RECONNECTED TO IV FLUIDS PER ORDER.
--- NOTE | 2017-07-01 17:58 | NUR ---
SPOKE WITH DR MORTON REGARDING IV LEAKING AROUND INSERTION SITE AND DIFFICULTY WITH IV. IV MEDICATIONS CHANGED TO PO PER ORDERS.
[2017-07-01 20:00] VITALS: BP 134/54
[2017-07-02] VITALS (7 sets, daily range): BP systolic 112–141; BP diastolic 45–69
[2017-07-02 05:21] LABS: BASOPHILS 0.3 % (0-2); EOSINOPHILS 1.5 % (0-7); HEMATOCRIT 40.8 % (36.0-48.0); HEMOGLOBIN 13.1 g/dL (12-16); IMMATURE GRANULOCYTES 0.6 % (0-5); LYMPHOCYTES 20.5 % (15-50); MCH 28.1 pg (26.0-34.0); MCHC 32.1 g/dL (31.0-37.0); MCV 87.4 fL (80.0-100.0); MEAN PLATELET VOLUME 10.8 fL (7.4-10.4); MONOCYTES 7.9 % (2-11); NEUTROPHILS 69.2 % (40-80); PLATELET COUNT 191 10x3/uL (130-400); RBC 4.67 10x6/uL (4.00-5.40); RDW 13.8 % (11.5-14.5)
[2017-07-02 05:30] LABS: WBC 6.8 10x3/uL (4.8-10.8)
[2017-07-02 05:44] LABS: ALBUMIN 3.2 g/dL (3.4-5.0); ANION GAP 7.8 mmol/L (8-16); BILIRUBIN - TOTAL 0.22 mg/dL (0.2-1.3); CALCIUM 8.7 mg/dL (8.5-10.1); CARBON DIOXIDE 29.8 mmol/L (21.0-32.0); CREATININE - SERUM 0.8 mg/dL (0.6-1.3); POTASSIUM - SERUM 3.6 mmol/L (3.5-5.1); PROTEIN - SERUM 6.2 g/dL (6.4-8.2)
--- NOTE | 2017-07-02 07:20 | NUR ---
ATTEMPTED 22G IV TO RIGHT FOREARM WITH NO SUCCESS. PT WOULD LIKE TO WAIT ON IV INSERTION UNTIL SEEN BY PULMONOLOGY.
--- NOTE | 2017-07-02 08:24 | NUR ---
SCHEDULED MEDICATIONS ADMINISTERED AT THIS TIME WELL PRN COUGH MEDICATION AND TYLENOL FOR COUGH AND ANKLE PAIN. OXYGEN ON 2L VIA NC. FREQUENT COUGH WITH NO PRODUCTION. SIGNIFICANT OTHER AT BEDSIDE. WILL CONTINUE WITH PLAN OF CARE.
--- NOTE | 2017-07-02 12:27 | NUR ---
NUTRITION F/U PT TOLERATING RED DIET, GOOD PO INTAKE. WILL CONTINUE TO PROVIDE DIET, MONITOR PO INTAKE. RD FOLLOWING
[2017-07-03 04:58] LABS: BASOPHILS 0.2 % (0-2); EOSINOPHILS 0 % (0-7); HEMATOCRIT 42.4 % (36.0-48.0); IMMATURE GRANULOCYTES 0.3 % (0-5); LYMPHOCYTES 8.4 % (15-50); MCH 28.4 pg (26.0-34.0); MEAN PLATELET VOLUME 10.7 fL (7.4-10.4); MONOCYTES 0.8 % (2-11); NEUTROPHILS 90.3 % (40-80); PLATELET COUNT 194 10x3/uL (130-400); RBC 4.93 10x6/uL (4.00-5.40); RDW 13.6 % (11.5-14.5); WBC 6.5 10x3/uL (4.8-10.8)
[2017-07-03 05:05] VITALS: BP 111/48
[2017-07-03 05:15] LABS: ALBUMIN 3.5 g/dL (3.4-5.0); ANION GAP 14.7 mmol/L (8-16); BILIRUBIN - TOTAL 0.25 mg/dL (0.2-1.3); CALCIUM 9.3 mg/dL (8.5-10.1); CARBON DIOXIDE 26.2 mmol/L (21.0-32.0); CREATININE - SERUM 0.9 mg/dL (0.6-1.3); POTASSIUM - SERUM 3.9 mmol/L (3.5-5.1); PROTEIN - SERUM 7.2 g/dL (6.4-8.2)
[2017-07-03 08:33] VITALS: BP 117/57
--- NOTE | 2017-07-03 09:45 | NUR ---
ASSESSMENT COMPLETE. SL TO L ARM. O2 2L NC IN USE. REDNESS NOTED TO FACE AROUND NOSE. DENIES ANY NEEDS AT THIS TIME.
[2017-07-03 12:26] VITALS: BP 151/65
[2017-07-03] MEDS ORDERED: MEDROL DOSE PACK4 MG PO (14:29)
[2017-07-03] MEDS ORDERED: DOXYCYCLINE HY100 M2 PO (14:29)
[2017-07-03] MEDS ORDERED: PROMETHAZINE W473 M1 PO (14:33)
--- NOTE | 2017-07-03 15:00 | NUR ---
SL REMOVED. CATHETER TIP INTACT. SCRIPT FOR PHENERGAN WITH CODIENE COUGH SYRUP GIVEN TO PATIENT. DOXYCYCLINE AND MEDROL DOSE PACK CALLED INTO [facility]ARM[facility]Y AND LEFT ON VOICEMAIL. DISCHARGE TEACHING GIVEN TO PATIENT. VOICED UNDERSTANDING.
--- NOTE | 2017-07-03 15:20 | NUR ---
DC'D HOME WITH FAMILY. ESCORTED TO VEHICLE BY CREDIT REVIEW ANALYST VIA WC WITH BELONGINGS.
--- NOTE | 2017-07-14 12:12 | CN ---
PATIENT NAME:MARIELOS BURLESON MEDICAL RECORD: [id number] : 38 LOCATION:D.MS [id number] ADMIT DATE: 06/29/17 ACCOUNT: [id number] CONSULTING PHYSICIAN: ANNABELLE LIGHT MD REFERRING PHYSICIAN: IRINA AGUILERA DO DATE OF CONSULTATION: 07/02/2017 NEPHROLOGY CONSULTATION REASON FOR CONSULTATION: Acute exacerbation of COPD. HISTORY OF PRESENT ILLNESS: Ms. Burleson is a 77-year-old female, very well known to our services. The patient was admitted with some nausea, vomiting and abdominal pain. Yesterday, she was eating corn and she looked like she aspirated a piece of corn and she said she was coughing. She was also wheezing and shortness of breath. She says she has some low-grade fever this morning. There is no yellow-green color sputum production. There is no hemoptysis. REVIEW OF SYSTEMS: Mainly in the history of present illness. PAST MEDICAL HISTORY: 1. COPD. 2. Hyperlipidemia. 3. Coronary artery disease. 4. Hypertension. 5. History of pneumonia. PAST SURGICAL HISTORY: 1. Status post CABG. 2. Hysterectomy. 3. Cataract surgery. ALLERGIES: SHE IS ALLERGIC TO FLAGYL. PRESENT MEDICATIONS: On the [employer] was reviewed. PERSONAL AND SOCIAL HISTORY: The patient is . She is living with her . She is an ex-smoker. She is a nondrinker. FAMILY HISTORY: Noncontributory. PHYSICAL EXAMINATION: GENERAL: Now, the patient is lying comfortably in bed. She is not in acute distress. VITAL SIGNS: The blood pressure is 141/63, pulse is 90, respiration is 14, temperature 99, SpO2 is 95% on 3.5 liter nasal cannula. HEENT: Conjunctivae pink, sclerae nonicteric. NECK: Supple, no JVD. CHEST: The chest excursion is minimal on both sides, prolonged expiration with wheezing. HEART: Rhythm regular, normal sound, no murmur. ABDOMEN: Soft. Bowel sounds present. No hepatosplenomegaly. RECTAL: Deferred. EXTREMITIES: No cyanosis, no clubbing, no pedal edema. SKIN: Warm, normal turgor. CONSULT REPORT [id number] MARIELOS BURLESON CENTRAL NERVOUS SYSTEM: The patient is awake and alert. There are no obvious cranial nerve abnormalities. The gait was not tested. CHEST RADIOGRAPH: There are no acute infiltrates. LABORATORY DATA: CBC; the WBC is 6.8, hemoglobin 13.1, hematocrit 40.8, platelet count 191. Chemistry; sodium 141, potassium 3.6, BUN 16, creatinine 0.8, glucose 127. IMPRESSION: 1. Acute exacerbation of chronic obstructive pulmonary disease. 2. Acute bronchitis. 3. Acute cough. 4. Nausea, vomiting, possibly secondary to biliary dyskinesia. 5. Allergic rhinitis. RECOMMENDATION: 1. Continue doxycycline. 2. Albuterol/ipratropium nebulizer. 3. Brovana/budesonide nebulizer. 4. Start on methylprednisolone IV. 5. Flonase nasal spray 1 squirt to each nostril b.i.d. 6. Follow up chest radiograph and labs. Dr. Aguilera, thank you for involving me in the care of Ms. Burleson. TRANSINT:[id number] Voice Confirmation ID: [id number] DOCUMENT ID: [id number] ANNABELLE LIGHT MD at 1212 CC: IRINA AGUILERA DO [id number] DICTATION DATE: 07/02/17 1351 TOWEL WEAVER: 07/02/17 1454 DIS IN 07/03/17 [id number] [place] [address]
== END 2017-07-03 15:20 | disposition home or self-care (01) | DRG 445 ==
LOC: D.MS 09:19
PROVIDERS: Internal Medicine Gastroenterology; ADMIT Family Medicine
PROC: 0DB78ZX Excision of Stomach, Pylorus, Via Natural or Artificial Opening Endoscopic, Diagnostic (ICD-10-PCS; 2017-06-30)
PROC: 0DB98ZX Excision of Duodenum, Via Natural or Artificial Opening Endoscopic, Diagnostic (ICD-10-PCS; principal; 2017-06-30 14:45)
DX: K80.20 Calculus of gallbladder without cholecystitis without obstruction (principal); J44.1 Chronic obstructive pulmonary disease with (acute) exacerbation; J44.0 Chronic obstructive pulmonary disease with (acute) lower respiratory infection; K21.0 Gastro-esophageal reflux disease with esophagitis; K82.8 Other specified diseases of gallbladder; J20.9 Acute bronchitis, unspecified

== ENCOUNTER 2017-07-05 14:45 | Inpatient (IN) | payer MEDICARE ==
[~2017-07-05] VITALS: Ht 165.1 cm; Wt 90.7 kg
[~2017-07-05 14:45] MED LIST changes: +DOXYCYCLINE HY100 M2 PO; +MEDROL DOSE PACK4 MG PO; +PROMETHAZINE W473 M1 PO
[2017-07-05 15:41] LABS: BASOPHILS 0.2 % (0-2); EOSINOPHILS 0.9 % (0-7); HEMATOCRIT 43.8 % (36.0-48.0); HEMOGLOBIN 14.3 g/dL (12-16); IMMATURE GRANULOCYTES 0.6 % (0-5); MCH 28.3 pg (26.0-34.0); MCHC 32.6 g/dL (31.0-37.0); MCV 86.6 fL (80.0-100.0); MEAN PLATELET VOLUME 10.3 fL (7.4-10.4); MONOCYTES 7.9 % (2-11); NEUTROPHILS 75.4 % (40-80); PLATELET COUNT 190 10x3/uL (130-400); RBC 5.06 10x6/uL (4.00-5.40); RDW 13.9 % (11.5-14.5); WBC 10.9 10x3/uL (4.8-10.8)
[2017-07-05 15:43] VITALS: BP 145/70; BMI 33.4
--- NOTE | 2017-07-05 16:08 | NUR ---
IV SITED TO LEFT FOREARM WITH 22 GA X 1 WITHOUT DIFFICULTY. IV FLUIDS STARTED. FALL PRECAUTIONS IN PLACE. [facility]
[2017-07-05 16:10] LABS: ALBUMIN 3.9 g/dL (3.4-5.0); ANION GAP 10.9 mmol/L (8-16); BILIRUBIN - TOTAL 0.33 mg/dL (0.2-1.3); CALCIUM 8.9 mg/dL (8.5-10.1); CARBON DIOXIDE 33.4 mmol/L (21.0-32.0); POTASSIUM - SERUM 4.3 mmol/L (3.5-5.1)
[2017-07-05 16:55] LABS: APPEARANCE CLEAR (CLEAR); BILIRUBIN NEGATIVE (NEGATIVE); COLOR YELLOW (YELLOW); GLUCOSE NEGATIVE (NEGATIVE); KETONE NEGATIVE (NEGATIVE); NITRITE NEGATIVE (NEGATIVE); PROTEIN NEGATIVE (NEGATIVE); UROBILINOGEN NORMAL (NORMAL)
[2017-07-06] VITALS: BP 104/50
--- NOTE | 2017-07-06 00:03 | NUR ---
2000) REC'D.IN BED STATES HAVE NOT HAD MY UPDRAFT SINCE THIS MORNING AT HOME.PRIOR TO GOING TO [facility] OFFICE.INSTRUCTED UPDRAFTS ARE NOW ORDERED NEEDED AND NOT SCHEDULED. TALKED WITH LAYLA FROM [facility]. IN [facility] TO PT. REQUESTING UPDRAFT TX. TX. GIVEN REQUESTED.
--- NOTE | 2017-07-06 01:45 | NUR ---
PT RESTING WITH EYES CLOSED AT THIS TIME, NO DISTRESS NOTED, RESPIRATIONS EQUAL AND UNLABORED. 02 @ 3L VIA NC. CALL LIGHT IN REACH, BED IN LOWEST POSITION.
[2017-07-06 01:48] VITALS: BP 90/56
[2017-07-06 04:00] VITALS: BP 123/54
[2017-07-06 04:14] LABS: BASOPHILS 0.1 % (0-2); EOSINOPHILS 2.4 % (0-7); HEMATOCRIT 41.1 % (36.0-48.0); HEMOGLOBIN 13.3 g/dL (12-16); IMMATURE GRANULOCYTES 0.5 % (0-5); LYMPHOCYTES 29.8 % (15-50); MCH 28.1 pg (26.0-34.0); MCHC 32.4 g/dL (31.0-37.0); MCV 86.9 fL (80.0-100.0); MEAN PLATELET VOLUME 10.5 fL (7.4-10.4); MONOCYTES 8.2 % (2-11); PLATELET COUNT 188 10x3/uL (130-400); RBC 4.73 10x6/uL (4.00-5.40); RDW 13.7 % (11.5-14.5)
[2017-07-06 04:17] LABS: WBC 7.5 10x3/uL (4.8-10.8)
[2017-07-06 04:40] LABS: ALBUMIN 3.2 g/dL (3.4-5.0); ANION GAP 9.3 mmol/L (8-16); BILIRUBIN - TOTAL 0.3 mg/dL (0.2-1.3); CALCIUM 8.7 mg/dL (8.5-10.1); CARBON DIOXIDE 31.7 mmol/L (21.0-32.0); CREATININE - SERUM 1.1 mg/dL (0.6-1.3); PROTEIN - SERUM 6.2 g/dL (6.4-8.2)
[2017-07-06 09:40] VITALS: BP 111/51
[2017-07-06 13:05] VITALS: Ht 165.1 cm; Wt 90.7 kg
[2017-07-06 17:46] VITALS: BP 107/46
--- NOTE | 2017-07-06 19:30 | NUR ---
RECIEVED SHIFT REPORT. PT IS LYING IN BED. ALERT AND ORIENTED AND ABLE TO VERBALIZE NEEDS. IV IS PATENT AND FLUIDS ARE RUNNING PER ORDER. O2 @ 2 PER NASAL CANNULA. PT IS AMBULATORY BUT WAS INSTRUCTED TO CALL FOR ANY ASSISTANCE NEEDED. PT DENIES ANY PAIN AT THIS TIME. NO NEEDS ARE VERBALIZED AT THIS TIME. WILL CONTINUE TO MONITOR. SIDE RAILS ARE UP X 2. BED IS IN LOWEST POSITION. CALL LIGHT IS WITHIN REACH.
[2017-07-06 20:00] VITALS: BP 125/44
--- NOTE | 2017-07-06 20:43 | NUR ---
SHIFT ASSESSMENT COMPLETED. NIGHT MEDS GIVEN WITH NO PROBLEMS. PT REQUESTING PRN PHENERGAN WITH CODEINE. ADMINISTERED PER ORDER. DENIES FURTHER NEEDS. WILL MONITOR. SIDE RAILS X 2. BED LOW. CALL LIGHT IN REACH.
[2017-07-07 04:00] VITALS: BP 127/48
--- NOTE | 2017-07-07 07:30 | NUR ---
ASSESSMENT COMPLETE. IV TO L FA PATENT. O2 2L NC IN USE. SOB ON EXERTION. DENIES ANY NEEDS AT THIS TIME.
[2017-07-07 08:31] LABS: BASOPHILS 0 % (0-2); EOSINOPHILS 0.1 % (0-7); HEMATOCRIT 41.9 % (36.0-48.0); HEMOGLOBIN 13.9 g/dL (12-16); IMMATURE GRANULOCYTES 0.9 % (0-5); LYMPHOCYTES 7.9 % (15-50); MCH 28.5 pg (26.0-34.0); MCHC 33.2 g/dL (31.0-37.0); MCV 85.9 fL (80.0-100.0); MEAN PLATELET VOLUME 10.4 fL (7.4-10.4); MONOCYTES 5.2 % (2-11); NEUTROPHILS 85.9 % (40-80); PLATELET COUNT 175 10x3/uL (130-400); RBC 4.88 10x6/uL (4.00-5.40); RDW 13.4 % (11.5-14.5); WBC 8.8 10x3/uL (4.8-10.8)
[2017-07-07 08:49] VITALS: BP 132/57
[2017-07-07 08:50] LABS: ALBUMIN 3.3 g/dL (3.4-5.0); ANION GAP 13.4 mmol/L (8-16); BILIRUBIN - TOTAL 0.33 mg/dL (0.2-1.3); CALCIUM 8.6 mg/dL (8.5-10.1); CREATININE - SERUM 0.8 mg/dL (0.6-1.3); POTASSIUM - SERUM 4.4 mmol/L (3.5-5.1); PROTEIN - SERUM 6.6 g/dL (6.4-8.2)
--- NOTE | 2017-07-07 10:00 | NUR ---
PATIENT WANTING TO GO HOME. PATIENT NOT READY FOR DISCHARGE PER DR PRIETO.
--- NOTE | 2017-07-07 11:42 | NUR ---
Patient Name: MARIELOS TALAMANTES Admission Status: Elective Accout number: [id number] Admission Date: 07-05-2017 : 1940 Admission Diagnosis:CHRONIC OBSTRUCTIVE PULMONARY DISEASE W (ACUTE) EXACERB Attending: IRINA AGUILERA Current LOS: 2 Anticipated DC Date: 07-12-2017 Planned Disposition: Home Primary Insurance: [employer] [facility] PFFS Discharge Planning Comments: CM MET WITH PATIENT REGARDING D/C NEEDS AND PLANS. PATIENT STATED SHE LIVES WITH HER BOYFRIEND (MAURISIO) AND HE WILL DRIVE HER HOME AT DISCHARGE. PATIENT STATED SHE HAS 3 STEPS W/RAILS TO ENTER HOME AND NO STAIRS INSIDE. PATIENT STATED SHE IS INDEPENDENT WITH HER CARE AND HAS A WALKER, WHEELCHAIR, BS COMMODE, OXYGEN (2), NEBULIZER, AND PORTABLE O2 AT HOME. PATIENTS PCP IS DR. AGUILERA AND PHARMACY IS [facility]. PATIENT IS REFUSING HOME HEALTH. THIS IS HER 3RD READMIT. PATIENT COULD BENEFIT FROM HOME HEALTH. CM WILL CONTINUE TO FOLLOW PATIENT WITH D/C NEEDS AND PLANS. PCP DR[facility] MA[facility]) [phone] Contact Finger Assembler: Racheltu Joseph Is the patient Alert and Oriented? Yes 0 * How many steps to enter\exit or inside your home? 3 W/RAILS 0 * PCP DR. AGUILERA 0 * Pharmacy [facility] 0 * Preadmission Environment Home with Family 0 * ADLs Independent 0 * Equipment Bedside Commode Nebulizer Oxygen Walker Wheelchair 0 * Other Equipment PORTABLE O2 0 * List name and contact numbers for known caregivers / representatives who currently or will assist patient after discharge: MAURISIO [facility]) [phone] 0 * Community resources currently utilized None 0 * Additional services required to return to the preadmission environment? Yes 0 * Can the patient safely return to the preadmission environment? Yes 0 * Has this patient been hospitalized within the prior 30 days at any hospital? No 0 Grand Total: 0
[2017-07-07 13:46] VITALS: BP 134/72
--- NOTE | 2017-07-07 14:30 | NUR ---
VISITING WITH FAMILY. DENIES ANY NEEDS AT THIS TIME.
[2017-07-07 15:50] VITALS: BP 112/42
--- NOTE | 2017-07-07 18:03 | NUR ---
NO CHANGES NOTED AT PRESENT.
--- NOTE | 2017-07-07 19:35 | NUR ---
RECIEVED SHIFT REPORT. PT IS LYING IN BED. ALERT AND ORIENTED AND ABLE TO VERBALIZE NEEDS. IV IS PATENT AND FLUIDS ARE RUNNING PER ORDER. PT IS AMBULATORY BUT WAS INSTRUCTED TO CALL FOR ANY ASSISTANCE NEEDED. PT STATES PAIN IS 3/10. NO NEEDS ARE VERBALIZED AT THIS TIME. WILL CONTINUE TO MONITOR. SIDE RAILS ARE UP X 2. BED IS IN LOWEST POSITION. CALL LIGHT IS WITHIN REACH.
[2017-07-07 20:00] VITALS: BP 127/60
--- NOTE | 2017-07-07 20:23 | NUR ---
SHIFT ASSESSMENT COMPLETED. NIGHT MEDS GIVEN WITH NO PROBLEMS. NO NEEDS ARE VOICED. WILL MONITOR. SIDE RAILS X 2. BED LOW. CALL LIGHT IN REACH.
[2017-07-08 00:07] LABS: HEMOGLOBIN 13.4 g/dL (12-16); LYMPHOCYTES 7.6 % (15-50); MCH 28.3 pg (26.0-34.0); MCHC 33.5 g/dL (31.0-37.0); MCV 84.4 fL (80.0-100.0); MEAN PLATELET VOLUME 10.4 fL (7.4-10.4); NEUTROPHILS 90.1 % (40-80); PLATELET COUNT 191 10x3/uL (130-400); RBC 4.74 10x6/uL (4.00-5.40); WBC 9.7 10x3/uL (4.8-10.8)
[2017-07-08 00:12] LABS: APTT 24.2 SECONDS (22.8-39.4); INR 0.91 (0.85-1.17); PROTIME 12.1 SECONDS (11.6-15.0)
[2017-07-08 04:00] VITALS: BP 120/43
[2017-07-08 09:03] VITALS: BP 143/61
[2017-07-08 12:32] VITALS: BP 137/63
[2017-07-08 16:48] VITALS: BP 130/43
[2017-07-09 00:43] VITALS: BP 132/68
[2017-07-09 04:00] VITALS: BP 149/66
[2017-07-09 04:39] VITALS: BP 150/69
--- NOTE | 2017-07-09 08:15 | NUR ---
AWAKE AND ALERT. ORINETED X3. NO C/O AT THIS TIME. LUNGS ARE CLEAR BUT DIMINISHED THROUGHOUT ESPECIALLY RIGHT LOWER LOBE, REPORTS OCCASSIONALLY PRODUCTIVE COUGH WITH GREENISH SPUTUM. SKIN IS INTACT WITHOUT REDNESS SL TO RIGHT FOREARM IS PATNET WITHOUT REDNESS AT INSERTION SITE. BREAKFAST SERVED IN ROOM. DENIES NEEDS.
[2017-07-09 08:19] LABS: ANION GAP 12.5 mmol/L (8-16); CALCIUM 8.6 mg/dL (8.5-10.1); CARBON DIOXIDE 28.9 mmol/L (21.0-32.0); POTASSIUM - SERUM 4.4 mmol/L (3.5-5.1)
[2017-07-09 09:30] VITALS: BP 130/58
[2017-07-09 14:13] VITALS: BP 126/64
[2017-07-09 14:23] LABS: FUNGUS STAIN Final report (())
--- NOTE | 2017-07-09 15:40 | NUR ---
DISCHARGED TO HOME AMBULATORY WITH FAMILY. UP TO BR WITH ONE PERSON ASSIST. VOIDED CLEAR YELLOW URINE WITHOUT DIFFICULTY. DISCHARGE INSTRUCTION S GIVEN BOTH VERBALLY AND WRITTEN. ALL QUESTIONS ANSWERED. PATIENT AND FAMILY VERBALIZED UNDERSTANDING OF SAME. NEEDED PRESCRIPTIONS GIVEN TO PATIENT. ALL BELONGINGS LEFT WITH PATIENT.
[2017-07-09 16:13] LABS: AFB SPECIMEN PROCESSING Concentration (())
--- NOTE | 2017-07-09 17:27 | NUR ---
UP IN ROOM PER SELF. DENIES NEEDS.
[2017-07-09 20:00] VITALS: BP 135/49
--- NOTE | 2017-07-09 21:20 | NUR ---
PT RESTING IN BED WITH NO VISIBLE SIGNS OF DISTRESS. BROUGHT PT A DRINK PER HER REQUEST. PT DENIES OTHER NEEDS AT THIS TIME. BED IN LOWEST POSITION AND CALL LIGHT WITHIN REACH. ENCOURAGED THE PT TO CALL IF SHE HAS NEEDS.
--- NOTE | 2017-07-09 21:20 | NUR ---
REST IN BED AND WATCH TV.
[2017-07-10] VITALS: BP 139/68
--- NOTE | 2017-07-10 03:57 | NUR ---
REST IN BED, EYE CLOSE, CALL LIGHT IN REACH.
[2017-07-10 04:00] VITALS: BP 147/67
--- NOTE | 2017-07-10 08:38 | NUR ---
AWAKE AND ALERT. ORIENTED X3. NO C/O AT THIS TIME. LUNGS HAVE FAINT CRACKLES AND INSPIRATORY WHEEZES THROUGHOUT BUT IMPROVED FROM YESTERDAY. SKIN IS INTACT WITHOUT REDNESS. IV TO LEFT FOREARM IS PATNET WITHOUT REDNESS AT INSERTION SITE. DENIES NEEDS. BREAKFAST SERVED IN ROOM.
[2017-07-10 09:20] VITALS: BP 159/73
--- NOTE | 2017-07-10 10:00 | NUR ---
SITTING UP IN BED WATCHING TV. NO NEEDS NOTED.
--- NOTE | 2017-07-10 12:30 | NUR ---
ATE ALMOST ALL OF LUNCH. NO C/O AT THIS TIME. DENIES NEEDS.
[2017-07-10 13:06] VITALS: BP 127/85
--- NOTE | 2017-07-10 15:15 | NUR ---
UP TO SHOWER WITH SET UP ASSISTANCE ONLY. LINENS CHANGED PER STAFF. DENIES NEEDS.
[2017-07-10 16:55] VITALS: BP 159/73
--- NOTE | 2017-07-10 18:21 | NUR ---
ATE ALL OF SUPPER TRAY. NO CHANGES NOTED. DENIES NEEDS.
[2017-07-10 20:00] VITALS: BP 128/50
[2017-07-11] VITALS: BP 125/61
[2017-07-11 04:00] VITALS: BP 123/64
[2017-07-11 05:23] LABS: BASOPHILS 0.1 % (0-2); EOSINOPHILS 0 % (0-7); HEMOGLOBIN 13.4 g/dL (12-16); IMMATURE GRANULOCYTES 1.7 % (0-5); LYMPHOCYTES 10.7 % (15-50); MCH 28.4 pg (26.0-34.0); MCHC 32.7 g/dL (31.0-37.0); MCV 86.9 fL (80.0-100.0); MEAN PLATELET VOLUME 10.3 fL (7.4-10.4); MONOCYTES 7.8 % (2-11); NEUTROPHILS 79.7 % (40-80); PLATELET COUNT 176 10x3/uL (130-400); RBC 4.72 10x6/uL (4.00-5.40); RDW 13.7 % (11.5-14.5); WBC 9.5 10x3/uL (4.8-10.8)
[2017-07-11 06:10] LABS: CALCIUM 8.3 mg/dL (8.5-10.1); CARBON DIOXIDE 27.6 mmol/L (21.0-32.0); CREATININE - SERUM 0.8 mg/dL (0.6-1.3); POTASSIUM - SERUM 4.6 mmol/L (3.5-5.1); VANCOMYCIN - RANDOM 16.4 ug/mL (10.0-20.0)
[2017-07-11 08:14] VITALS: BP 142/66
[2017-07-11 12:13] VITALS: BP 106/70
--- NOTE | 2017-07-11 14:29 | NUR ---
LYING IN BED,WITHOUT DISTRESS.DOOR OPEN
--- NOTE | 2017-07-11 14:53 | NUR ---
PIV TO l FOREARM LEAKING AND SWELLING. DC'D WITH CATHETER INTACT. PRESSURE AND DRESSING APPLIED. PIV RESITED TO R HAND WITH 22 GUAGE IV CATHETER. X1 ATTEMPT. RECONNECTED TO IV TUBING FOR IV ABX.
[2017-07-11 15:33] VITALS: BP 151/80
--- NOTE | 2017-07-11 18:48 | NUR ---
PT AOX4 RESP EVEN AND NONLABORED PT DENIES NEEDS AT THIS TIME IV TO LEFT FOREARM PATENT AND INTACT AT THIS TIME PT HERE FOR COPD EXACERBATION FOR THIS VISIT. SRX2 BED AT LOWEST SETTING CALL LIGHT WITHIN REACH WILL CONTINUE TO MONITOR
[2017-07-11 20:00] VITALS: BP 135/52
[2017-07-12] VITALS: BP 123/38
[2017-07-12 04:00] VITALS: BP 142/63
[2017-07-12 05:24] LABS: ALBUMIN 2.7 g/dL (3.4-5.0); ANION GAP 8.4 mmol/L (8-16); BILIRUBIN - TOTAL 0.3 mg/dL (0.2-1.3); CALCIUM 8.2 mg/dL (8.5-10.1); CARBON DIOXIDE 30.5 mmol/L (21.0-32.0); CREATININE - SERUM 0.8 mg/dL (0.6-1.3); POTASSIUM - SERUM 3.9 mmol/L (3.5-5.1); PROTEIN - SERUM 5.6 g/dL (6.4-8.2); VANCOMYCIN - RANDOM 20.9 ug/mL (10.0-20.0)
--- NOTE | 2017-07-12 07:15 | NUR ---
ASSESSMENT COMPLETE. IV TO R HAND PATENT. DROPLET ISOLATION. O2 3.5L NC IN USE. DENIES ANY NEEDS AT THIS TIME.
[2017-07-12 07:50] VITALS: BP 163/64
--- NOTE | 2017-07-12 09:15 | NUR ---
CALLED TO ROOM BY PATIENT. SWELLING AND TENDERNESS NOTED TO R HAND IV. IV REMOVED. CATHETER TIP INTACT. UNABLE TO RESITE IV X 2 ATTEMPTS. JOSE,VASCULAR ACCESS NURSE, STATES SHE WILL TRY TO PLACE IV.
--- NOTE | 2017-07-12 11:00 | NUR ---
22 GUAGE SITED TO R HAND X 1 ATTEMPT BY JOSE REEDER RN.
--- NOTE | 2017-07-12 14:00 | NUR ---
DENIES ANY NEEDS AT THIS TIME.
[2017-07-12 17:17] VITALS: BP 139/60
--- NOTE | 2017-07-12 18:17 | NUR ---
DENIES ANY NEEDS AT PRESENT. VISITING WITH .
--- NOTE | 2017-07-12 19:40 | NUR ---
RECIEVED SHIFT REPORT. PT IS LYING IN BED. ALERT AND ORIENTED AND ABLE TO VERBALIZE NEEDS. IV IS PATENT AND SALINE LOC AT THIS TIME. O2 @ 3 PER NASAL CANNULA. PT IS AMBULATORY BUT WAS INSTRUCTED TO CALL FOR ANY ASSISTANCE NEEDED. PT DENIES ANY PAIN AT THIS TIME. ISOLATION PRECAUTIONS ARE IN PLACE. NO NEEDS ARE VERBALIZED AT THIS TIME. WILL CONTINUE TO MONITOR. SIDE RAILS ARE UP X 2. BED IS IN LOWEST POSITION. CALL LIGHT IS WITHIN REACH.
[2017-07-12 20:00] VITALS: BP 139/57
--- NOTE | 2017-07-12 20:22 | NUR ---
SHIFT ASSESSMENT COMPLETED. NIGHT MEDS GIVEN WITH NO PROBLEMS. PT REQUESTING PRN COUGH SYRUP. ADMINISTERED PER ORDER. DENIES FURTHER NEEDS. WILL MONITOR. SIDE RAILS X 2. BED LOW. CALL LIGHT IN REACH.
--- NOTE | 2017-07-12 20:25 | NUR ---
PT CALLED ME IN ROOM. IV TO RIGHT HAND SWELLING. VANC STOPPED. PT STATES SHE REALLY DOES NOT WANT TO BE STUCK ANYMORE AND IS REQUESTING SOME OTHER FORM OF IV ACCESS. INSTRUCTED PT THAT I WOULD HAVE TO CALL MD. IV D/C'D WITH CATHETER TIP INTACT. WARM COMPRESS APPLIED. DENIES FURTHER NEEDS. WILL MONITOR. SIDE RAILS X 2. BED LOW. ISOLATION PRECAUTIONS IN PLACE. CALL LIGHT IN REACH.
--- NOTE | 2017-07-12 22:57 | NUR ---
CALL PLACED TO DR PRIETO IN REGARDS TO IV ACCESS.
--- NOTE | 2017-07-12 23:02 | NUR ---
REFRIGERATOR MOVER DR LIGHT PAGED AT THIS TIME THROUGH ANSWERING SERVICE.
--- NOTE | 2017-07-12 23:10 | NUR ---
DR LIGHT CALLED BACK AND STATED THAT PT NEEDED IV ACCESS. I INSTRUCTED MD THAT SHE HAS BEEN STUCK MULITPLE TIMES WITH NO SUCCESS. DR LIGHT STATED THE REASON SHE WAS HERE WAS FOR IV ANTIBIOTICS AND I INSTRUCTED HIM THAT I UNDERSTOOD THAT AND THAT THE REASON I WAS CALLING IS TO SEE IF I COULD PUT A VASCULAR ACCESS CONSULT IN FOR POSSIBLY A MIDLINE. DR LIGHT STATED THAT WAS FINE JUST GET IV ACCESS. I INSTRUCTED DR LIGHT THAT VASCULAR ACCESS WAS NOT IN UNTIL MORNING. HE STATED JUST GET IV ACCESS. WILL PUT CONSULT IN.
[2017-07-13 04:00] VITALS: BP 155/77
[2017-07-13 04:16] LABS: BASOPHILS 0.1 % (0-2); EOSINOPHILS 0.1 % (0-7); HEMOGLOBIN 13.7 g/dL (12-16); IMMATURE GRANULOCYTES 4.4 % (0-5); LYMPHOCYTES 7.9 % (15-50); MCH 28.2 pg (26.0-34.0); MCHC 32.6 g/dL (31.0-37.0); MCV 86.6 fL (80.0-100.0); MEAN PLATELET VOLUME 10.6 fL (7.4-10.4); NEUTROPHILS 83.5 % (40-80); PLATELET COUNT 192 10x3/uL (130-400); RBC 4.85 10x6/uL (4.00-5.40); RDW 13.8 % (11.5-14.5)
[2017-07-13 04:22] LABS: WBC 14.1 10x3/uL (4.8-10.8)
[2017-07-13 04:30] LABS: ALBUMIN 2.8 g/dL (3.4-5.0); ANION GAP 8.2 mmol/L (8-16); BILIRUBIN - TOTAL 0.25 mg/dL (0.2-1.3); CALCIUM 8.2 mg/dL (8.5-10.1); CARBON DIOXIDE 33.1 mmol/L (21.0-32.0); CREATININE - SERUM 0.8 mg/dL (0.6-1.3); POTASSIUM - SERUM 4.3 mmol/L (3.5-5.1)
--- NOTE | 2017-07-13 07:00 | NUR ---
REPORT RECIEVED ASSUMED CARE. PATIENT IN BED WITH IV ITNACT. NO COMPLAINTS. CALL LIGHT WITHIN REACH.
[2017-07-13 10:18] VITALS: BP 145/66
[2017-07-13 12:17] VITALS: BP 128/57
[2017-07-13 15:46] VITALS: BP 119/57
--- NOTE | 2017-07-13 18:55 | NUR ---
PATIENT IN BED WITH NO COMPLAINTS AT THIS TIME. MIDLINE INTACT. CALL LIGHT WITHIN REACH.
--- NOTE | 2017-07-13 19:30 | NUR ---
RECIEVED SHIFT REPORT. PT IS LYING IN BED. ALERT AND ORIENTED AND ABLE TO VERBALIZE NEEDS. IV IS PATENT AND SALINE LOC AT THIS TIME. O2 @ 3 PER NASAL CANNULA. PT IS AMBULATORY BUT WAS INSTRUCTED TO CALL FOR ANY ASSISTANCE. PT DENIES ANY PAIN AT THIS TIME. ISOLATION PRECAUTIONS IN PLACE. NO NEEDS ARE VERBALIZED AT THIS TIME. WILL CONTINUE TO MONITOR. SIDE RAILS ARE UP X 2. BED IS IN LOWEST POSITION. CALL LIGHT IS WITHIN REACH.
[2017-07-13 20:00] VITALS: BP 136/60
--- NOTE | 2017-07-13 21:47 | NUR ---
SHIFT ASSESSMENT COMPLETED. NIGHT MEDS GIVEN WITH NO PROBLEMS. PT REQUESTING PRN PHENERGAN WITH CODEINE. ADIMINISTERED PER ORDER. NO FURTHER NEEDS AT THIS TIME. WILL MONITOR. ISOLATION PRECAUTIONS IN PLACE. SIDE RAILS X 2. BED LOW. CALL LIGHT IN REACH.
[2017-07-14] VITALS: BP 135/65
[2017-07-14 04:00] VITALS: BP 137/58
[2017-07-14 05:57] LABS: BASOPHILS 0.2 % (0-2); EOSINOPHILS 0.1 % (0-7); HEMATOCRIT 41.6 % (36.0-48.0); HEMOGLOBIN 13.3 g/dL (12-16); IMMATURE GRANULOCYTES 6.4 % (0-5); LYMPHOCYTES 9.2 % (15-50); MCH 27.8 pg (26.0-34.0); MCV 86.8 fL (80.0-100.0); MEAN PLATELET VOLUME 10.7 fL (7.4-10.4); MONOCYTES 4.7 % (2-11); NEUTROPHILS 79.4 % (40-80); PLATELET COUNT 199 10x3/uL (130-400); RBC 4.79 10x6/uL (4.00-5.40); RDW 13.9 % (11.5-14.5); WBC 14.3 10x3/uL (4.8-10.8)
--- NOTE | 2017-07-14 07:00 | NUR ---
REPORT RECIEVED ASSUMED CARE. PATIENT IN BED WITH IV INTACT. CALL LIGHT WITHIN REACH.
[2017-07-14 08:09] VITALS: BP 141/59
--- NOTE | 2017-07-14 12:17 | NUR ---
NUTRITION F/U CHART REVIEWED, PT VISIT. REMAINS IN ISOLATION. TOLERATING REG DIET WITH GOOD PO INTAKE. WILL CONTINUE TO PROVIDE DIET, HONOR FOOD PREFERENCES. RD FOLLOWING
[2017-07-14 12:51] VITALS: BP 142/51
[2017-07-14 15:36] VITALS: BP 105/54
--- NOTE | 2017-07-14 18:55 | NUR ---
PATIENT SITTING UP IN BED WITH NO COMPLAINTS. IV INTACT. CALL LIGHTW ITHIN REACH.
--- NOTE | 2017-07-14 19:40 | NUR ---
RECIEVED SHIFT REPORT. PT IS LYING IN BED. ALERT AND ORIENTED AND ABLE TO VERBALIZE NEEDS. IV IS PATENT AND SALINE LOC AT THIS TIME. O2 @ 3 PER NASAL CANNULA. PT IS AMBULATOTY BUT WAS INSTRUCTED TO CALL FOR ANY ASSISTANCE NEEDED. PT DENIES ANY PAIN AT THIS TIME. NO NEEDS ARE VERBALIZED AT THIS TIME. ISOLATION PRECAUTIONS ARE IN PLACE. SIDE RAILS ARE UP X 2. BED IS IN LOWEST POSITION. CALL LIGHT IS WITHIN REACH.
[2017-07-14 20:00] VITALS: BP 144/64
[2017-07-15] VITALS: BP 114/53
[2017-07-15 04:00] VITALS: BP 137/70
[2017-07-15 08:11] VITALS: BP 144/73
--- NOTE | 2017-07-15 08:45 | NUR ---
PT CALLED ME INTO ROOM STATED IV IS LEAKING, IV WAS CHANGED YESTERDAY AND IS LEAKING, STOPPED VANC AND WILL LOOK AND SEE IF ABLE TO SAVE IV SITE
--- NOTE | 2017-07-15 11:01 | NUR ---
CALLED JOSE IN REGARDS TO MIDLINE, JOSE STATED WILL BE UP TO LOOK AT IT
[2017-07-15 12:16] LABS: FUNGUS CULTURE RESULT 1 Candida albicans (()); FUNGUS STAIN RESULT 1 Yeast observed (())
[2017-07-15 12:45] VITALS: BP 131/65
--- NOTE | 2017-07-15 13:12 | NUR ---
PT NOTE-VISITED WITH PT. NO NEEDS AT THIS TIME. STATES SHE HAS INFECTION IN HER LUNGS THAT WILL NOT CLEAR UP YET. STATES NO SOB-NONE NOTED. REMAINS IN DROPLET ISOLATION. CALL LIGHT IN REACH
[2017-07-15 15:43] VITALS: BP 115/52
[2017-07-15 20:00] VITALS: BP 111/57
--- NOTE | 2017-07-15 20:40 | NUR ---
PATIENT RESTING IN BED AND DENIES NEEDS AT THIS TIME. ADMINISTERED MEDS PER ORDERS AND COMPLETED ASSESSMENT. BED IN LOWEST POSITION AND CALL LIGHT WITHIN REACH. ENCOURAGED THE PATIENT TO CALL IF SHE HAS NEEDS.
[2017-07-16] VITALS: BP 141/63
--- NOTE | 2017-07-16 03:19 | NUR ---
PT IS SITTING UP ON SIDE OF BED REUQESTED COFFEE, CRAKERS AND ICE, STATED SLEPT VERY WELL AND NOW WIDE A WAKE. NO SIGNS OF DISTRESS, BED IN LOW POSITION, CALL LIGHT IN REACH
[2017-07-16 04:00] VITALS: BP 125/49
[2017-07-16 05:28] LABS: BASOPHILS 0.1 % (0-2); EOSINOPHILS 0.2 % (0-7); HEMATOCRIT 41.9 % (36.0-48.0); HEMOGLOBIN 13.4 g/dL (12-16); IMMATURE GRANULOCYTES 8.5 % (0-5); LYMPHOCYTES 7.6 % (15-50); MCV 87.7 fL (80.0-100.0); MEAN PLATELET VOLUME 10.4 fL (7.4-10.4); MONOCYTES 1.6 % (2-11); PLATELET COUNT 189 10x3/uL (130-400); RBC 4.78 10x6/uL (4.00-5.40); RDW 14.2 % (11.5-14.5)
[2017-07-16 05:31] LABS: WBC 10.3 10x3/uL (4.8-10.8)
[2017-07-16 05:53] LABS: ALBUMIN 2.8 g/dL (3.4-5.0); BILIRUBIN - TOTAL 0.3 mg/dL (0.2-1.3); CALCIUM 8.6 mg/dL (8.5-10.1); CARBON DIOXIDE 28.6 mmol/L (21.0-32.0); CREATININE - SERUM 1.2 mg/dL (0.6-1.3); POTASSIUM - SERUM 4.6 mmol/L (3.5-5.1); PROTEIN - SERUM 5.9 g/dL (6.4-8.2)
--- NOTE | 2017-07-16 08:00 | NUR ---
SITTING UP AT BEDSIDE,WITHOUT DISTRESS.ISOLATION MAINTAINED
--- NOTE | 2017-07-16 08:00 | NUR ---
PT ASSESSMENT COMPLETE NO DISTRESS NOTED VOICES ALL NEEDS TO STAFF REMAINS IN DROPLET ISOLTATION FOR MRSA IN SPUTUM
[2017-07-16 08:02] VITALS: BP 145/67
--- NOTE | 2017-07-16 10:00 | NUR ---
PT ASSESSMENT COMPLETE NO DISTRESS NOTED VOICES ALL NEEDS TO STAFF CALL LIGHT IN REACH.
[2017-07-16 12:26] VITALS: BP 129/61
--- NOTE | 2017-07-16 14:06 | NUR ---
PT GETTING IN SHOWER WITH ASSIST OF STAFF NO DISTRESS NOTED
[2017-07-16 15:51] VITALS: BP 124/64
--- NOTE | 2017-07-16 19:46 | NUR ---
UP ON BEDSIDE. ALERT ORIENTED. NO COMPLAINTS VOICED. 02 @ 2L PER NC ON. NO DISTRESS NOTED. SL TO LEFT FOREARM INTACT WIHTOUT REDNESS OR EDEMA. CL IN REACH
[2017-07-16 20:00] VITALS: BP 120/42
--- NOTE | 2017-07-17 01:24 | NUR ---
RESTING QUEITLY. NO DISTRESS NOTED. CL IN REACH
--- NOTE | 2017-07-17 03:40 | NUR ---
PT RESTING QUIETLY, EYES CLOSED. RESP EVEN, UNLABORED. NO DISTRESS NOTED. CONTINUE SUPERVISOR NUTRITIONAL YEAST'S PLAN OF CARE.
[2017-07-17 05:14] LABS: BASOPHILS 0.1 % (0-2); EOSINOPHILS 0.1 % (0-7); HEMATOCRIT 41.3 % (36.0-48.0); HEMOGLOBIN 13.3 g/dL (12-16); IMMATURE GRANULOCYTES 4.3 % (0-5); LYMPHOCYTES 8.2 % (15-50); MCH 28.2 pg (26.0-34.0); MCHC 32.2 g/dL (31.0-37.0); MCV 87.5 fL (80.0-100.0); MEAN PLATELET VOLUME 10.1 fL (7.4-10.4); MONOCYTES 4.5 % (2-11); NEUTROPHILS 82.8 % (40-80); PLATELET COUNT 194 10x3/uL (130-400); RBC 4.72 10x6/uL (4.00-5.40); RDW 14.2 % (11.5-14.5); WBC 11.3 10x3/uL (4.8-10.8)
--- NOTE | 2017-07-17 05:19 | NUR ---
AWAKE WITH NO COMPLAINTS. NO CHANGE IN ASSESSMENT. CL IN REACH
[2017-07-17 05:32] LABS: ALBUMIN 2.8 g/dL (3.4-5.0); ANION GAP 12.7 mmol/L (8-16); BILIRUBIN - TOTAL 0.26 mg/dL (0.2-1.3); CALCIUM 8.3 mg/dL (8.5-10.1); CARBON DIOXIDE 29.1 mmol/L (21.0-32.0); CREATININE - SERUM 0.9 mg/dL (0.6-1.3); POTASSIUM - SERUM 4.8 mmol/L (3.5-5.1)
--- NOTE | 2017-07-17 07:30 | NUR ---
ASSESSMENT COMPLETE. SL TO L FA PATENT. O2 2.5L NC IN USE. DROPLET ISOLATION. DENIES ANY NEEDS AT THIS TIME.
[2017-07-17 09:38] VITALS: BP 147/65
--- NOTE | 2017-07-17 12:00 | NUR ---
NO CHANGES NOTED. DENIES ANY NEEDS AT PRESENT.
--- NOTE | 2017-07-17 12:00 | NUR ---
VISITING WITH FAMILY. DENIES ANY NEEDS AT THIS TIME.
[2017-07-17 13:41] VITALS: BP 141/80
--- NOTE | 2017-07-17 13:50 | NUR ---
IV REMOVED. CATHETER TIP INTACT. DISCHARGE TEACHING GIVEN TO PATIENT AND . VOICED UNDERSTANDING.
--- NOTE | 2017-07-17 13:55 | NUR ---
DC'D HOME WITH . ESCORTED TO VEHICLE BY INDIAN NANNY VIA WC WITH BELONGINGS.
--- NOTE | 2017-07-17 15:00 | NUR ---
RESTING QUIETLY AT THIS TIME.
[2017-07-17 15:51] VITALS: BP 140/78
--- NOTE | 2017-07-17 18:15 | NUR ---
DENIES ANY NEEDS AT THIS TIME.
--- NOTE | 2017-07-17 19:15 | NUR ---
RECEIVED CARE FROM DAY NURSE. PT IN HIGH FOWLERS POSITION WITH COMPANY AT SIDE. REPORTS NO NEEDS AT THIS TIME. CALL LIGHT AT SIDE. IV SL TO LEFT FA.
[2017-07-17 20:00] VITALS: BP 127/68
--- NOTE | 2017-07-18 02:57 | NUR ---
PT IN MID FOWLERS POSITION. EYES CLOSED. RESP EVEN AND UNLABORED. CALL LIGHT AT SIDE.
[2017-07-18 04:00] VITALS: BP 143/89
[2017-07-18 05:12] LABS: BASOPHILS 0.1 % (0-2); EOSINOPHILS 0 % (0-7); HEMOGLOBIN 13.5 g/dL (12-16); LYMPHOCYTES 5.5 % (15-50); MCH 28.1 pg (26.0-34.0); MCHC 32.1 g/dL (31.0-37.0); MCV 87.5 fL (80.0-100.0); MONOCYTES 1.9 % (2-11); NEUTROPHILS 90.5 % (40-80); PLATELET COUNT 188 10x3/uL (130-400); WBC 12.6 10x3/uL (4.8-10.8)
[2017-07-18 05:39] LABS: ANION GAP 10.4 mmol/L (8-16); CALCIUM 8.6 mg/dL (8.5-10.1); CREATININE - SERUM 0.9 mg/dL (0.6-1.3); POTASSIUM - SERUM 4.4 mmol/L (3.5-5.1)
--- NOTE | 2017-07-18 06:54 | NUR ---
IV IN LEFT FA SWOLLEN AND TENDER. DC'D WITH TIP INTACT. ATTEMPTED TO RESITE X3 WITH NO SUCCESS.
--- NOTE | 2017-07-18 07:30 | NUR ---
ASSESSMENT COMPLETE. NO IV ACCESS. O2 2.5L NC IN USE. DROPLET ISOLATION. BRUISING NOTED TO BILAT ARMS. DENIES ANY NEEDS AT THIS TIME.
[2017-07-18 08:15] VITALS: BP 143/71
--- NOTE | 2017-07-18 12:00 | NUR ---
NO CHANGES NOTED AT PRESENT.
[2017-07-18 12:41] VITALS: BP 156/70
--- NOTE | 2017-07-18 15:17 | NUR ---
DENIES ANY NEEDS AT THIS TIME.
[2017-07-18 16:40] VITALS: BP 146/63
--- NOTE | 2017-07-18 17:58 | NUR ---
VISITING WITH . DENIES ANY NEEDS AT THIS TIME. PATIENT STATED THAT DR PRIETO MENTIONED PERFORMING BRONCHOSCOPY IN AM. INSTRUCTED NOT TO EAT OR DRINK AFTER MIDNIGHT.
--- NOTE | 2017-07-18 18:54 | NUR ---
22 GUAGE SITED TO L WRIST X 1 ATTEMPT BY ZACH MARTIN RN.
[2017-07-18 20:00] VITALS: BP 140/65
--- NOTE | 2017-07-18 21:43 | NUR ---
REC'D SITTING UP IN BED. ALERT AND ORIENTED X4. DENIED PAIN AT THIS TIME. NO DISTRESS NOTED. INSTRUCTED TO CALL IF NEEDED ANYTHING, VERBALIZED UNDERSTANDING. BED LOW, LOCKED CALL LIGHT IN REACH. WILL CONT TO MONITOR.
[2017-07-19] VITALS (9 sets, daily range): BP systolic 108–147; BP diastolic 52–75
--- NOTE | 2017-07-19 03:24 | NUR ---
PT RESTING QUIETLY, EYES CLOSED. RESP EVEN, UNLABORED. NO DISTRESS NOTED. CONTINUE BRUSH HEAD MAKER'S PLAN OF CARE.
[2017-07-19 04:27] LABS: BASOPHILS 0.1 % (0-2); EOSINOPHILS 0.1 % (0-7); HEMATOCRIT 41.4 % (36.0-48.0); HEMOGLOBIN 13.2 g/dL (12-16); IMMATURE GRANULOCYTES 1.3 % (0-5); LYMPHOCYTES 7.8 % (15-50); MCHC 31.9 g/dL (31.0-37.0); MCV 87.7 fL (80.0-100.0); NEUTROPHILS 84.7 % (40-80); PLATELET COUNT 194 10x3/uL (130-400); RBC 4.72 10x6/uL (4.00-5.40); RDW 14.1 % (11.5-14.5); WBC 14.9 10x3/uL (4.8-10.8)
[2017-07-19 04:44] LABS: ANION GAP 9.1 mmol/L (8-16); CALCIUM 8.4 mg/dL (8.5-10.1); CARBON DIOXIDE 31.2 mmol/L (21.0-32.0); CREATININE - SERUM 0.9 mg/dL (0.6-1.3); POTASSIUM - SERUM 4.3 mmol/L (3.5-5.1)
--- NOTE | 2017-07-19 07:10 | NUR ---
REPORT RECEIVED, ASSUMED CARE OF PT. DROPLET ISOLATION PRECAUTIONS IN PLACE. RESTING WITH EYES SHUT, EASILY AROUSED. L WRIST IV SALINE LOCKED, DRSG C/D/I. NO NEEDS VOICED AT THIS TIME. BED IN LOWEST POSITION, SIDE RAILS UP X 2, CALL LIGHT WITHIN REACH.
--- NOTE | 2017-07-19 15:56 | NUR ---
PT RETURNED TO FLOOR FROM BRONCH. FAMILY AT BEDSIDE.
--- NOTE | 2017-07-19 19:20 | NUR ---
RECIEVED SHIFT REPORT. PT IS LYING IN BED. ALERT AND ORIENTED AND ABLE TO VERBALIZE NEEDS. IV IS PATENT AND SALINE LOC AT THIS TIME. O2 @ 2.5 PER NASAL CANNULA. PT IS AMBULATORY BUT WAS INSTRUCTED TO CALL FOR ANY ASSISTANCE NEEDED. PT DENIES ANY PAIN AT THIS TIME. ISOLATION PRECAUTIONS ARE IN PLACE. NO NEEDS ARE VERBALIZED AT THIS TIME. WILL CONTINUE TO MONITOR. SIDE RAILS ARE UP X 2. BED IS IN LOWEST POSITION. CALL LIGHT IS WITHIN REACH.
--- NOTE | 2017-07-19 20:54 | NUR ---
SHIFT ASSESSMENT COMPLETED. NIGHT MEDS GIVEN WITH NO PROBLEMS. PT RECIEVED NO INSULIN PER SLIDING SCALE FOR FWCJ=[id number]. NO NEEDS ARE VOICED. WILL MONITOR. SIDE RAILS X 2. BED LOW. CALL LIGHT IN REACH.
--- NOTE | 2017-07-19 22:26 | NUR ---
PT C/O PAIN 10/ TO LEGS AND BACK. NO MEDICATION ORDERED. CALLED PLACED AND PAGE SENT TO MD DIRECTOR SALES SUPPORT ALE. WILL AWAIT CALL BACK.
[2017-07-20 04:00] VITALS: BP 128/62
--- NOTE | 2017-07-20 07:45 | NUR ---
PATIENT REPORT RECIEVED. ASSUMED CARE. PATIENT IN BED WITH IV INTACT. NO COMPLAINTS AT THIS TIME. CALL LIGHT WITHIN REACH.
--- NOTE | 2017-07-20 08:45 | NUR ---
ASSESSMENT COMPLETE, VS STABLE. IV INTACT. STATED THAT SHE HAD HAD PAIN LAST NIGHT IN HER ABDOMEN AND BACK AND THAT SHE DIDNT SLEEP WELL, BUT THAT PAIN HAS SUBSIDED NOW. NO COMPLAINTS AT THIS TIME. SITTING UP IN BED WITH CALL LIGHT WITHIN REACH.
[2017-07-20 09:30] VITALS: BP 146/65
[2017-07-20 12:15] VITALS: BP 136/63
--- NOTE | 2017-07-20 12:30 | NUR ---
PATIENT SITTING UP IN BED WITH IV INTACT. NO COMPLAINTS. CALL LIGHTW ITHIN REACH.
[2017-07-20 13:04] LABS: APPEARANCE CLEAR (CLEAR); COLOR YELLOW (YELLOW); NITRITE NEGATIVE (NEGATIVE); SPECIFIC GRAVITY 1.015 (1.005-1.020)
[2017-07-20 13:05] LABS: BILIRUBIN NEGATIVE (NEGATIVE); GLUCOSE NEGATIVE (NEGATIVE); KETONE NEGATIVE (NEGATIVE); PROTEIN NEGATIVE (NEGATIVE); UROBILINOGEN NORMAL (NORMAL)
[2017-07-20 13:06] LABS: BACTERIA MODERATE /hpf (NONE SEEN); RED CELLS - URINE 0-5 /hpf (0-5)
[2017-07-20 16:08] VITALS: BP 113/57
--- NOTE | 2017-07-20 16:18 | NUR ---
SPOKE WITH DR. DILL NURSE ABOUT PATIENT UA RESULTS. STATED SHE WOULD NOTIFY DR. AGUILERA AND CALL BACK.
--- NOTE | 2017-07-20 18:32 | NUR ---
PATIENT SITTING UP IN BED WITH NO COMPLAINTS. EXPLAINED NO CALL FROM DR. AGUILERA OF YET. MAY HAVE TO WAIT UNTIL AM. VERBALIZED UNDERSTANDING. IV INTACT. CALL LIGHT WITHIN REACH.
[2017-07-20 19:30] VITALS: BP 153/61
--- NOTE | 2017-07-20 19:35 | NUR ---
RECIEVED SHIFT REPORT. PT IS LYING IN BED. ALERT AND ORIENTED AND ABLE TO VERBALIZE NEEDS. IV IS PATENT AND SALINE LOC AT THIS TIME. O2 @ 2.5 PER NASAL CANNULA. PT IS AMBULATORY BUT WAS INSTRUCTED TO CALL FOR ANY ASSISTANCE. PT DENIES ANY PAIN AT THIS TIME. ISOLATION PRECAUTIONS ARE IN PLACE. NO NEEDS ARE VERBALIZED AT THIS TIME. WILL CONTINUE TO MONITOR. SIDE RAILS ARE UP X 2. BED IS IN LOWEST POSITION. CALL LIGHT IS WITHIN REACH.
--- NOTE | 2017-07-20 21:13 | NUR ---
SHIFT ASSESSMENT COMPLETED. NIGHT MEDS GIVEN WITH NO PROBLEMS. NO NEEDS ARE VOICED. WILL MONITOR. SIDE RAILS X 2. BED LOW. CALL LIGHT IN REACH. ISOLATION PRECAUTIONS IN PLACE.
[2017-07-20 23:50] VITALS: BP 135/62
[2017-07-21 03:30] VITALS: BP 131/47
[2017-07-21 05:34] LABS: BASOPHILS 0 % (0-2); EOSINOPHILS 0.6 % (0-7); HEMATOCRIT 40.1 % (36.0-48.0); LYMPHOCYTES 10.2 % (15-50); MCH 28.4 pg (26.0-34.0); MCHC 32.4 g/dL (31.0-37.0); MCV 87.6 fL (80.0-100.0); MONOCYTES 4.3 % (2-11); NEUTROPHILS 83.9 % (40-80); PLATELET COUNT 186 10x3/uL (130-400); RBC 4.58 10x6/uL (4.00-5.40); RDW 14.4 % (11.5-14.5)
[2017-07-21 05:58] LABS: CALCIUM 8.3 mg/dL (8.5-10.1); CARBON DIOXIDE 31.7 mmol/L (21.0-32.0); CREATININE - SERUM 0.9 mg/dL (0.6-1.3); POTASSIUM - SERUM 3.7 mmol/L (3.5-5.1)
--- NOTE | 2017-07-21 07:00 | NUR ---
REPORT RECEIVED, ASSUMED CARE OF PT. DROPLET ISOLATION PRECAUTIONS IN PLACE. RESTING, EASILY AROUSED. L WRIST IV SALINE LOCKED. NO NEEDS VOICED AT THIS TIME. BED IN LOWEST POSITION, SIDE RAILS UP X 2, CALL LIGHT WITHIN REACH.
--- NOTE | 2017-07-21 10:46 | NUR ---
NUTRITION F/U PT REMAINS IN ISOLATION. DIABETIC DIET RESUMED WITH GOOD PO INTAKE. WILL CONTINUE TO PROVIDE DIET, MONITOR PO INTAKE. RD FOLLOWING
[2017-07-21] MEDS ORDERED: LEVAQUIN500 MG PO (16:37)
[2017-07-21] MEDS ORDERED: PREDNISONE10 MG PO (16:38)
[2017-07-21] MEDS ORDERED: MUCINEX DM ER1 EAC1 PO (16:38)
[2017-07-21 17:11] LABS: AFB SPECIMEN PROCESSING Concentration (())
--- NOTE | 2017-07-21 18:07 | NUR ---
DISCHARGE PAPERS AND INSTRUCTIONS GIVEN, QUESTIONS ANSWERED, IV REMOVED TIP INTACT, DISCHARGED PER WC WITH BELONGINGS
[2017-07-23 12:11] LABS: FUNGUS STAIN Final report (())
[2017-07-26 16:10] LABS: AEROBE ID Final report (())
[2017-07-28 18:09] LABS: AEROBE ID Final report (())
[2017-08-03 17:13] LABS: FUNGUS MYCOLOGY CULTURE Final report (())
[2017-08-06 16:13] LABS: ACID FAST CULTURE Positive (())
[2017-08-15 14:08] LABS: ACID FAST SMEAR Negative (()); M TUBERCULOSIS Negative (())
[2017-08-17 06:14] LABS: FUNGUS MYCOLOGY CULTURE Final report (())
[2017-08-27 12:13] LABS: ACID FAST CULTURE Negative (()); ACID FAST SMEAR Negative (())
== END 2017-07-21 18:09 | disposition home or self-care (01) | DRG 205 ==
LOC: D.M2 14:45 → D.MS 15:08
PROVIDERS: Family Medicine; Internal Medicine Pulmonary Disease; ADMIT Family Medicine
PROC: 0BC58ZZ Extirpation of Matter from Right Middle Lobe Bronchus, Via Natural or Artificial Opening Endoscopic (ICD-10-PCS; principal; 2017-07-08 10:00)
PROC: 0BD78ZX Extraction of Left Main Bronchus, Via Natural or Artificial Opening Endoscopic, Diagnostic (ICD-10-PCS; 2017-07-19)
PROC: 0BD38ZX Extraction of Right Main Bronchus, Via Natural or Artificial Opening Endoscopic, Diagnostic (ICD-10-PCS; 2017-07-19)
DX: T17.528A Food in bronchus causing other injury, initial encounter (principal); J15.212 Pneumonia due to Methicillin resistant Staphylococcus aureus; J81.0 Acute pulmonary edema; J44.1 Chronic obstructive pulmonary disease with (acute) exacerbation; J30.9 Allergic rhinitis, unspecified; K21.9 Gastro-esophageal reflux disease without esophagitis; K82.9 Disease of gallbladder, unspecified; I10 Essential (primary) hypertension; E78.5 Hyperlipidemia, unspecified; I25.10 Atherosclerotic heart disease of native coronary artery without angina pectoris; Z95.5 Presence of coronary angioplasty implant and graft; G25.81 Restless legs syndrome; M19.90 Unspecified osteoarthritis, unspecified site

== ENCOUNTER 2017-08-13 18:43 | Inpatient (IN) | payer MEDICARE ==
[~2017-08-13] VITALS: Ht 165.1 cm; Wt 90.7 kg
[~2017-08-13 18:43] MED LIST changes: +PREDNISONE10 MG PO
[2017-08-13 20:12] LABS: BASOPHILS 0.4 % (0-2); EOSINOPHILS 2.4 % (0-7); HEMATOCRIT 39.7 % (36.0-48.0); IMMATURE GRANULOCYTES 1.5 % (0-5); LYMPHOCYTES 27.2 % (15-50); MCHC 32.7 g/dL (31.0-37.0); MCV 88.6 fL (80.0-100.0); MEAN PLATELET VOLUME 9.9 fL (7.4-10.4); MONOCYTES 7.3 % (2-11); NEUTROPHILS 61.2 % (40-80); PLATELET COUNT 171 10x3/uL (130-400); RBC 4.48 10x6/uL (4.00-5.40); RDW 15.1 % (11.5-14.5); WBC 5.4 10x3/uL (4.8-10.8)
[2017-08-13 20:25] LABS: ALBUMIN 3.4 g/dL (3.4-5.0); ANION GAP 7.3 mmol/L (8-16); BILIRUBIN - TOTAL 0.4 mg/dL (0.2-1.3); CALCIUM 9.1 mg/dL (8.5-10.1); CARBON DIOXIDE 36.3 mmol/L (21.0-32.0); CREATININE - SERUM 1.6 mg/dL (0.6-1.3); POTASSIUM - SERUM 3.6 mmol/L (3.5-5.1); PROTEIN - SERUM 6.8 g/dL (6.4-8.2)
[2017-08-13 20:37] LABS: APPEARANCE CLEAR (CLEAR); BILIRUBIN NEGATIVE (NEGATIVE); COLOR YELLOW (YELLOW); GLUCOSE NEGATIVE (NEGATIVE); KETONE NEGATIVE (NEGATIVE); NITRITE NEGATIVE (NEGATIVE); PROTEIN NEGATIVE (NEGATIVE); UROBILINOGEN NORMAL (NORMAL)
[2017-08-13 20:42] LABS: BACTERIA MODERATE /hpf (NONE SEEN); EPITHELIAL CELLS 0-5 /hpf (0-5); RED CELLS - URINE OCC /hpf (0-5)
[2017-08-13] MEDS ORDERED: ZANTAC150 MG PO (23:14)
[2017-08-13] MEDS ORDERED: ZOFRAN4 MG PO (23:15)
[2017-08-13] MEDS ORDERED: K-TAB10 MEQ PO (23:17)
[2017-08-13] MEDS ORDERED: FUROSEMIDE40 MG PO (23:17)
[2017-08-14 02:27] VITALS: BP 101/50; BMI 33.3
[2017-08-14 03:30] VITALS: BP 98/40
--- NOTE | 2017-08-14 07:00 | NUR ---
REPORT RECIEVED ASSUMED CARE. PATIENT IN BED WITH IV INTACT. NO COMPLAINTS AT THIS TIME. CALL LIGHT WITHIN REACH.
[2017-08-14 07:34] VITALS: BP 115/58
--- NOTE | 2017-08-14 10:29 | HP ---
PATIENT: MARIELOS TALAMANTES MEDICAL RECORD: [id number] ACCOUNT: [id number] LOCATION:D.MS [id number] : 39 ADMISSION DATE: 08/13/17 HISTORY AND PHYSICAL EXAMINATION DATE OF ADMISSION: 08/14/2017 CHIEF COMPLAINT: Shortness of breath. HISTORY OF PRESENT ILLNESS: The patient is a 77-year-old female with longstanding history of COPD. The patient stated that she began running fever yesterday. She had presented to the Emergency Room complaining of increasing shortness of breath. It was felt that the patient warranted admission. PAST MEDICAL HISTORY: Significant that she has had hyperlipidemia. She has had coronary artery bypass grafting 35 years ago. Last year, she had a stent placed. She has also had renal artery stenosis, peripheral artery occlusive disease, gastroesophageal reflux, osteoarthritis, hypoxia. She is a G6, P6. FAMILY HISTORY: Mother of malignant colon cancer 92 years of age. Father of heart disease 82 years of age. One sister had malignant breast cancer. SOCIAL HISTORY: The patient was born and raised in [place], educated to the 10th grade. She is a and mother of 6. HABITS: The patient states she smoked 1-1/2 pack per day for 50+ years. She stopped some 5 years ago. She denies any ethanol use or abuse. MEDICATIONS: Include Advair Diskus 500/50 one puff b.i.d., Combivent Respimat 20 mcg per 100 mcg 2 puffs q.4. hours p.r.n. shortness of breath, Daliresp 500 mg 1 p.o. daily, furosemide 40 mg once a day, hydrochlorothiazide 12.5 mg once a day, DuoNeb every 4 hours p.r.n., lisinopril 10 mg once a day, metoprolol succinate ER 50 mg 1 p.o. daily, meclizine 25 mg, Naprosyn 500 mg 1 p.o. b.i.d., Protonix 40 mg once a day, KCl 10 mEq 1 p.o. every day, prednisone 10 mg once a day, ranitidine 150 mg b.i.d., ropinirole 1 mg p.o. at bedtime. ALLERGIES: AUGMENTIN, FLAGYL, AND LEVAQUIN. REVIEW OF SYSTEMS: CONSTITUTIONAL: She denies any headaches, seizure, or syncope. She denied change in visual or auditory acuity. PULMONARY: She does report having increased cough or congestion. CARDIOVASCULAR: She has had no chest pain, palpitation, PND, orthopnea. GASTROINTESTINAL: She has stated she has had some upper abdominal discomfort, had nausea. GENITOURINARY: No bowel habit changes. MUSCULOSKELETAL: Noncontributory. PHYSICAL EXAMINATION: GENERAL: The patient is alert. She is oriented times 3. VITAL SIGNS: Temperature is 100.8, pulse 92, respirations 20, blood pressure 113/65, and O2 sat is 92% on room air. HEENT: Her head is normocephalic. No lesions. Ears: TMs clear. Eyes: Pupils equal, round and reactive to light. Her extraocular movements are intact. Her nasal cavity, oral cavity, oropharynx clear. HISTORY AND PHYSICAL [id number] ALBINMARIELOS MAHESH NECK: Supple. There is no adenopathy. HEART: Has a regular rate. LUNGS: She has decreased breath sounds in all rain. She has end expiratory wheezes in all rain. ABDOMEN: Soft, bowel sounds positive. She does have some suprapubic tenderness. EXTREMITIES: Lower extremities have no edema. LABORATORY DATA: She had urinalysis showing 5-10 wbc's per high power field. The pH was 8, specific gravity 1.010. Sodium is 143, potassium 3.6, chloride is 103, CO2 was 36, BUN 19, creatinine 1.6, glucose 109. White count 5.4, hemoglobin 13, hematocrit is 37.7, platelets are 171. Negative strep. Negative influenza A and B. ASSESSMENT: Chronic obstructive pulmonary disease exacerbation, urinary tract infection, history of arteriosclerotic heart disease, gastroesophageal reflux, peripheral vascular disease. PLAN: The patient will be admitted. Blood culture will be obtained. Has been placed on Rocephin as well as Zithromax, also Solu-Medrol, updraft therapy, O2 supplementation. Continue to follow. TRANSINT:[id number] Voice Confirmation ID: [id number] DOCUMENT ID: [id number] OUMOU KARIMI MD at 1029 CC: [id number] DICTATION DATE: 08/14/17 0954 BUSINESS ECONOMIST: 08/14/17 1021 ADM [place] [address] [place] [address]
[2017-08-14 11:56] VITALS: Ht 165.1 cm; Wt 90.7 kg
[2017-08-14 15:01] VITALS: BP 126/60
--- NOTE | 2017-08-14 18:55 | NUR ---
PATIENT IN BED WITH NO COMPLAINTS AT THIS TIME. IV INTACT. CALL LIGHT WITHIN REACH.
[2017-08-14 19:30] VITALS: BP 115/54
[2017-08-15] VITALS (7 sets, daily range): BP systolic 107–131; BP diastolic 53–87
--- NOTE | 2017-08-15 04:55 | NUR ---
PT IS RESTING QUIETLY IN BED WITH EYES CLOSED. RESPS ARE EVEN AND UNLABORED. NO ACUTE DISTRESS NOTED.
[2017-08-15 05:26] LABS: BASOPHILS 0 % (0-2); EOSINOPHILS 0 % (0-7); HEMATOCRIT 35.8 % (36.0-48.0); HEMOGLOBIN 11.9 g/dL (12-16); IMMATURE GRANULOCYTES 0.5 % (0-5); LYMPHOCYTES 6.6 % (15-50); MCH 28.7 pg (26.0-34.0); MCHC 33.2 g/dL (31.0-37.0); MEAN PLATELET VOLUME 10.1 fL (7.4-10.4); NEUTROPHILS 88.9 % (40-80); PLATELET COUNT 152 10x3/uL (130-400); RBC 4.14 10x6/uL (4.00-5.40); RDW 14.8 % (11.5-14.5)
[2017-08-15 05:33] LABS: MCV 86.5 fL (80.0-100.0); WBC 8.2 10x3/uL (4.8-10.8)
[2017-08-15 05:52] LABS: ANION GAP 14.9 mmol/L (8-16); CALCIUM 8.5 mg/dL (8.5-10.1); CARBON DIOXIDE 26.6 mmol/L (21.0-32.0); CREATININE - SERUM 1.2 mg/dL (0.6-1.3); POTASSIUM - SERUM 3.5 mmol/L (3.5-5.1)
--- NOTE | 2017-08-15 21:00 | NUR ---
PT HAS HACKING COUGH. GAVE CODEINE COUGH SYRUP AND OTHER SCHEDULED MEDS. OXYGEN @ 2L/NC. COMPLETE ASSESSMENT PER FLOW-SHEET. WILL CONTINUE TO MONITOR.
[2017-08-16 04:01] VITALS: BP 112/53
[2017-08-16 04:05] LABS: BASOPHILS 0.1 % (0-2); EOSINOPHILS 0 % (0-7); HEMATOCRIT 36.6 % (36.0-48.0); HEMOGLOBIN 12.1 g/dL (12-16); IMMATURE GRANULOCYTES 0.7 % (0-5); LYMPHOCYTES 16.5 % (15-50); MCH 28.9 pg (26.0-34.0); MCHC 33.1 g/dL (31.0-37.0); MCV 87.6 fL (80.0-100.0); MEAN PLATELET VOLUME 10.1 fL (7.4-10.4); MONOCYTES 7.6 % (2-11); NEUTROPHILS 75.1 % (40-80); PLATELET COUNT 155 10x3/uL (130-400); RBC 4.18 10x6/uL (4.00-5.40); RDW 15.1 % (11.5-14.5)
[2017-08-16 04:11] LABS: ANION GAP 13.6 mmol/L (8-16); CALCIUM 8.5 mg/dL (8.5-10.1); CARBON DIOXIDE 30.6 mmol/L (21.0-32.0); POTASSIUM - SERUM 3.2 mmol/L (3.5-5.1)
--- NOTE | 2017-08-16 07:27 | NUR ---
AWAKE AND ALERT. ORIENTED X3. C/O SOME SOB WHEN LYING DOWN. LUNGS ARE CLEAR THROUGHOUT BUT DIMINISHED IN LOWER LOBES, REPORTS OCCASSIONALLY PRODUCTIVE COUGH WITH SLIGHT GREENISH SPUTUM. SKIN IS INTACT WITHOUT REDNESS. SL TO RIGHT HAND PATNET WITHOUT REDNESS AT INSETION SITE. AT BEDSIDE. DENIES NEEDS.
[2017-08-16 08:21] VITALS: BP 137/70
--- NOTE | 2017-08-16 09:30 | NUR ---
AMBULATED IN HALLWAY WITH . DENIES NEEDS.
--- NOTE | 2017-08-16 11:43 | NUR ---
FSBS 298. GIVEN 6 UNITS HUMALOG SUBQ PER SS.
[2017-08-16 13:24] VITALS: BP 104/49
--- NOTE | 2017-08-16 13:34 | NUR ---
NUTRITION MONITORING & EVAL RECEIVED CONSULT FOR DM DIET EDU. PROVIDED DIET LITERATURE, FAMILY AT BEDSIDE. DISCUSSED CARBOHYDRATE SOURCES, SERVING SIZES, CONSISTENT MEAL TIMING, LABEL READING. PROVIDED RD CONTACT INFORMATION. RD FOLLOWING
[2017-08-16 16:07] VITALS: BP 122/66
--- NOTE | 2017-08-16 19:07 | NUR ---
ATE MOST OF SUPPER. FSBS 306. GIVEN 8 UNITS HUMALOG SUBQ PER SS. DENIES NEEDS. NO CHANGES NOTED.
[2017-08-16 20:00] VITALS: BP 101/56
--- NOTE | 2017-08-17 01:25 | NUR ---
2039 - PT LYING IN BED CONVERSING WITH DR ANGULO, BED IN LOW POSITION, CL IN REACH, STATED COUGHING BUT NON PRODUCTIVE. RETRIEVED INCENTIVE SPIROMETER FOR PT AND WENT OVER HOW TO USE AND HOW OFTEN PER HOUR. PT REQUESTED COUGH MEDS WITH PM MEDS. BED IN LOW POSITION, CL IN REACH CONTINUE WITH PLAN OF CARE. 0005- ADMIN SCHEDULED ANTIBIOTICS FOR PT, PT REQUESTED MIDNIGHT VITALS BE SKIPPED SO SHE MAY GET REST, ADVISED ZULMA OF PT REQUEST, NO OTHER NEEDS VOICED AT THIS TIME
[2017-08-17 02:55] LABS: BASOPHILS 0.1 % (0-2); EOSINOPHILS 0.5 % (0-7); HEMATOCRIT 37.1 % (36.0-48.0); HEMOGLOBIN 12.1 g/dL (12-16); IMMATURE GRANULOCYTES 1.4 % (0-5); LYMPHOCYTES 22.6 % (15-50); MCH 28.5 pg (26.0-34.0); MCHC 32.6 g/dL (31.0-37.0); MCV 87.3 fL (80.0-100.0); MEAN PLATELET VOLUME 9.8 fL (7.4-10.4); MONOCYTES 10.8 % (2-11); NEUTROPHILS 64.6 % (40-80); PLATELET COUNT 169 10x3/uL (130-400); RBC 4.25 10x6/uL (4.00-5.40); RDW 15.2 % (11.5-14.5); WBC 9.2 10x3/uL (4.8-10.8)
[2017-08-17 03:12] LABS: ALBUMIN 2.8 g/dL (3.4-5.0); ANION GAP 10.7 mmol/L (8-16); BILIRUBIN - TOTAL 0.1 mg/dL (0.2-1.3); CALCIUM 8.3 mg/dL (8.5-10.1); CARBON DIOXIDE 29.5 mmol/L (21.0-32.0); CREATININE - SERUM 0.9 mg/dL (0.6-1.3); POTASSIUM - SERUM 3.2 mmol/L (3.5-5.1); PROTEIN - SERUM 5.8 g/dL (6.4-8.2)
[2017-08-17 04:00] VITALS: BP 128/68
--- NOTE | 2017-08-17 07:50 | NUR ---
PT SITTING UP IN BED NO DISTRESS NOTED HAS INSP AND EXP WHEEZING NOTED TO BILAT UPPER LOBES. ALL ADLS PER STAF ASSIST
[2017-08-17 08:05] VITALS: BP 123/62
[2017-08-17 11:54] VITALS: BP 122/75
--- NOTE | 2017-08-17 13:00 | NUR ---
HAS AMBULATED IN HALLS.PT WITHOUT DISTRESS.
[2017-08-17 15:58] VITALS: BP 117/54
--- NOTE | 2017-08-17 18:58 | NUR ---
PT HAS DONE WELL THIS SHIFT NO DISTRESS NOTED AMBULATES IN HALLWAY WELL WITH NO ASSIST
[2017-08-17 20:00] VITALS: BP 147/70
--- NOTE | 2017-08-17 20:45 | NUR ---
PT IS LYING IN BED WITH HOB AT 45, REQUESTED COUGH MED WITH 900 MEDS. NO OTHER NEEDS VOICED AT THIS TIME. CONTINUE WITH PLAN OF CARE
--- NOTE | 2017-08-18 02:09 | NUR ---
PT RESTING IN BED WITH NO DISTRESS. RESPIRATIONS EVEN AND UNLABORED. SIDE RAILS X 2. BED LOW. CALL LIGHT IN REACH.
[2017-08-18 04:00] VITALS: BP 137/70
[2017-08-18 09:33] VITALS: BP 138/68
--- NOTE | 2017-08-18 12:21 | NUR ---
SITTING UP IN BED VISITING WITH FAMILY. DENIES ANY NEEDS OR PAIN. NO S/SX OF ACUTE DISTRESS NOTED. CALL LIGHT AND PERSONAL ITEMS WITHIN REACH, BED LOW, AND SR X2. WILL CONTINUE TO MONITOR
[2017-08-18 13:29] VITALS: BP 126/53
[2017-08-18 16:30] VITALS: BP 122/64
--- NOTE | 2017-08-18 17:59 | NUR ---
Is the patient Alert and Oriented? Yes 0 * How many steps to enter\exit or inside your home? 2 STEPS 0 * PCP DR AGUILERA 0 * Pharmacy [facility] 0 * Preadmission Environment Home with Family 0 * ADLs Independent 0 * Equipment Oxygen 0 * Other Equipment CANE, WALKER, STATIONARY AND PORTABLE OXYGEN UNITS, NEBULIZER, WHEELCHAIR, BSC. 0 * List name and contact numbers for known caregivers / representatives who currently or will assist patient after discharge: MAURISIO PEREIRA- [phone] [facility]- [phone] 0 * Community resources currently utilized None 0 * Please name any agencies selected above. N/A 0 * Additional services required to return to the preadmission environment? No 0 * Can the patient safely return to the preadmission environment? Yes 0 * Has this patient been hospitalized within the prior 30 days at any hospital? Yes 0 Grand Total: 0
--- NOTE | 2017-08-18 18:02 | NUR ---
CM MET WITH THE PATIENT AND HER "BOYFRIEND, MAURISIO". PATIENT GAVE PERMISSION TO SPEAK WITH MAURISIO BEING PRESENT. HE HELPS HER. SHE HAS HAD RECENT ADMISSIONS W/ AECOPD. SHE STATES SHE CAN AND DOES OBTAIN HER MEDICATIONS. SHE OBTAINS MEDS AT [facility]. SHE CAN AFFORD HER MEDS. SHE HAS ALL THE NECESSARY DME. [facility] PROVIDES HER OXYGEN SUPPLIES. PCP- DR AGUILERA PULMONARY- DR PRIETO HAS 2 STEPS TO ENTER HER HOME. WILL HAVE TRANSPORTATION TO HOME AT DISCHARGE. SHE IS FAIRLY INDEPENDENT IN HER CARE. SHE HAS NOT HAD HOME HEALTH AND DOES NOT FEEL SHE NEEDS H/H. PLAN FOR LAP [employer] IN AM. CM TO FOLLOW TO ASSIST IS APPROPRIATE,
[2017-08-18 20:00] VITALS: BP 136/72
--- NOTE | 2017-08-18 23:30 | NUR ---
IV IN RIGHT WRIST LEAKING AT INSERTION SITE. DC'D WITH TIP INTACT.
[2017-08-19 04:00] VITALS: BP 130/55
[2017-08-19 05:03] LABS: BASOPHILS 0.2 % (0-2); EOSINOPHILS 0.9 % (0-7); HEMATOCRIT 39.2 % (36.0-48.0); HEMOGLOBIN 12.8 g/dL (12-16); IMMATURE GRANULOCYTES 6.5 % (0-5); LYMPHOCYTES 25.5 % (15-50); MCH 28.5 pg (26.0-34.0); MCHC 32.7 g/dL (31.0-37.0); MCV 87.3 fL (80.0-100.0); MEAN PLATELET VOLUME 10.2 fL (7.4-10.4); MONOCYTES 8.3 % (2-11); NEUTROPHILS 58.6 % (40-80); PLATELET COUNT 200 10x3/uL (130-400); RBC 4.49 10x6/uL (4.00-5.40); RDW 15.3 % (11.5-14.5); WBC 9.3 10x3/uL (4.8-10.8)
[2017-08-19 06:16] LABS: ANION GAP 16.4 mmol/L (8-16); BILIRUBIN - TOTAL 0.32 mg/dL (0.2-1.3); CALCIUM 8.7 mg/dL (8.5-10.1); CARBON DIOXIDE 27.4 mmol/L (21.0-32.0); POTASSIUM - SERUM 3.8 mmol/L (3.5-5.1); PROTEIN - SERUM 5.7 g/dL (6.4-8.2)
[2017-08-19 09:38] VITALS: BP 130/62
[2017-08-19 14:15] VITALS: BP 134/61
[2017-08-19 20:36] VITALS: BP 120/68
[2017-08-19 23:43] VITALS: BP 119/57
[2017-08-20 04:15] VITALS: BP 107/55
[2017-08-20 04:28] LABS: BASOPHILS 0.2 % (0-2); EOSINOPHILS 0.7 % (0-7); HEMATOCRIT 39.5 % (36.0-48.0); HEMOGLOBIN 12.9 g/dL (12-16); IMMATURE GRANULOCYTES 5.4 % (0-5); LYMPHOCYTES 23.1 % (15-50); MCHC 32.7 g/dL (31.0-37.0); MCV 88.8 fL (80.0-100.0); MONOCYTES 8.9 % (2-11); NEUTROPHILS 61.7 % (40-80); PLATELET COUNT 199 10x3/uL (130-400); RBC 4.45 10x6/uL (4.00-5.40); RDW 15.4 % (11.5-14.5); WBC 11.2 10x3/uL (4.8-10.8)
[2017-08-20 04:52] LABS: ALBUMIN 2.8 g/dL (3.4-5.0); ANION GAP 10.9 mmol/L (8-16); BILIRUBIN - TOTAL 0.41 mg/dL (0.2-1.3); CALCIUM 8.5 mg/dL (8.5-10.1); CARBON DIOXIDE 32.7 mmol/L (21.0-32.0); CREATININE - SERUM 1.1 mg/dL (0.6-1.3); POTASSIUM - SERUM 3.6 mmol/L (3.5-5.1); PROTEIN - SERUM 5.8 g/dL (6.4-8.2)
[2017-08-20 08:49] VITALS: BP 133/66
--- NOTE | 2017-08-20 09:35 | NUR ---
PATIENT BEING DISCHARGED HOME TODAY, HER BOYFRIEND WILL BE DRIVING HER HOME. OFFER HH AGAIN AND SHE HAS REFUSED. HAMMAD PISANO
--- NOTE | 2017-08-20 13:29 | NUR ---
PT DC HOME/ ESCORTED OUT VIA WC SPOUSE OUT FRONT
--- NOTE | 2017-09-17 09:56 | OP ---
PATIENT NAME: MARIELOS TALAMANTES MEDICAL RECORD: [id number] :38 LOCATION:D.MS [id number] ADMISSION DATE:08/13/17 SURGEON: ADARSH FABIAN MD DATE OF OPERATION: 08/19/2017 DATE OF OPERATION: 08/19/2017 PREOPERATIVE DIAGNOSES: 1. Biliary dyskinesia. 2. Chronic COPD. POSTOPERATIVE DIAGNOSES: 1. Biliary dyskinesia. 2. Chronic COPD. PROCEDURE: Laparoscopic cholecystectomy. SURGEON: Adarsh Fabian MD REPORT OF PROCEDURE: The patient's abdomen was prepped and draped in sterile fashion. A cutdown was made on the superior aspect of the umbilicus, 0 Vicryls were placed in the fascia bilaterally and the fascia was incised with 15-blade. I then bluntly entered the peritoneal cavity and placed a 12-mm Christ port. Under direct visualization, a 5 mm trocar was placed in the epigastrium and 2 more 5-mm trocars were placed in the right subcostal region. The gallbladder was elevated and there were some minimal inflammatory changes which were teased down with blunt dissection. The cystic artery and duct were dissected free and these were clipped proximally and distally and ligated in standard fashion. The gallbladder was taken off the liver bed using electrocautery and placed in the right upper quadrant. Any bleeding from the liver bed was then treated with electrocautery. At this point, the ports and insufflation were then removed and the gallbladder was taken out through the umbilicus. The umbilical fascia was closed with interrupted 0 Vicryls times 3. The wounds were irrigated out with normal saline and infused with 10 mL of 0.25% Marcaine with epinephrine. The skin incisions were all closed with subcutaneous 5-0 Monocryl and dressed appropriately. COMPLICATIONS: None. CONDITION: Stable. ANESTHESIA: General endotracheal and local. BLOOD LOSS: Minimal. TRANSINT:[id number] Voice Confirmation ID: [id number] DOCUMENT ID: [id number] OPERATIVE REPORT [id number] ALBINADARSH JO MD at 0956 CC: OUMOU KARIMI MD [id number] DICTATION DATE: 08/19/17 1328 BELL CAPTAIN: 08/19/17 1508 DIS IN 08/20/17 [id number] [place] [address]
== END 2017-08-20 13:33 | disposition home or self-care (01) | DRG 988 ==
LOC: D.ER 18:43 → D.MS 22:21
PROVIDERS: Family Medicine; Physician Assistant Medical; Surgery; ADMIT Family Medicine
PROC: 0FT44ZZ Resection of Gallbladder, Percutaneous Endoscopic Approach (ICD-10-PCS; principal; 2017-08-19 11:00)
DX: J44.1 Chronic obstructive pulmonary disease with (acute) exacerbation (principal); N39.0 Urinary tract infection, site not specified; K80.20 Calculus of gallbladder without cholecystitis without obstruction; B37.3 Candidiasis of vulva and vagina; I73.9 Peripheral vascular disease, unspecified; E11.9 Type 2 diabetes mellitus without complications; I10 Essential (primary) hypertension; K82.8 Other specified diseases of gallbladder; K21.9 Gastro-esophageal reflux disease without esophagitis; I25.10 Atherosclerotic heart disease of native coronary artery without angina pectoris; E78.5 Hyperlipidemia, unspecified; Z95.1 Presence of aortocoronary bypass graft; Z87.891 Personal history of nicotine dependence; G25.81 Restless legs syndrome

== ENCOUNTER 2017-08-26 18:00 | Inpatient (IN) | payer MEDICARE ==
[~2017-08-26] VITALS: Ht 165.1 cm; Wt 94.2 kg
--- NOTE | ~2017-08-26 | DS ---
PATIENT:MARIELOS TALAMANTES :39 MEDICAL RECORD: [id number] DISCHARGE SUMMARY ADMISSION DATE: 08/26/17 DISCHARGE DATE: 09/05/17 A 77-year-old female. DATE OF ADMISSION: 08/26/2017 DATE OF DISCHARGE: 09/05/2017. ADMISSION DIAGNOSES: Chronic obstructive pulmonary disease exacerbation, acute on chronic, nausea, and shortness of breath. DISCHARGE DIAGNOSES: Chronic obstructive pulmonary disease exacerbation, dysphagia, and gastroparesis. CONSULTS: Pulmonology, GI, and infectious disease, ENT for signs of chronic sinusitis. HOSPITAL COURSE: The patient with a history of recurrent frequent exacerbation of end-stage chronic obstructive pulmonary disease, admitted, gradual slow improvement of symptoms. She had gastroparesis, was tried on Reglan, had good results, but does not want to take the medicine due to perceived side effects, potential side effects. The patient would just monitor her diet and make changes to her. She has been cleared by all specialists. CONSULTS FOR DISCHARGE: She is anxious to go home. She has her oxygen and home nebulizers and nebule everything she needs at home. She is discharged home in significantly improved condition. PHYSICAL EXAMINATION: VITAL SIGNS ON DISCHARGE: Temp 98.1, blood pressure 140/59, heart rate 74, respirations 20, O2 sats 93%. GENERAL: She is alert, oriented, dressed, and anxious to go home. HEART: Regular rate and rhythm. LUNGS: Significantly improved breath sounds and good air movement. ABDOMEN: Soft, nontender. EXTREMITIES: Present times 4. NEUROLOGIC: Intact. SKIN: Warm and dry. No rash. LABORATORY DATA: CBC on discharge; white count 9.2, hemoglobin 12.8, hematocrit 39.6, and platelets 210. Agree with evaluations by consults, please see chart for details of this protracted hospitalization. TRANSINT:[id number] Voice Confirmation ID: [id number] DOCUMENT ID: [id number] DISCHARGE SUMMARY REPORT [id number] MARIELOS TALAMANTES FILEMON WALKER DO at 1012 CC: [id number] DICTATION DATE: 09/05/17 1905 LOCKS TENDER: 09/06/17 0945 DIS IN 09/05/17 [id number] [place] [address]
[~2017-08-26 18:00] MED LIST changes: +FUROSEMIDE40 MG PO; +K-TAB10 MEQ PO; +ZANTAC150 MG PO; +ZOFRAN4 MG PO
[2017-08-26 18:42] LABS: BASOPHILS 0.2 % (0-2); EOSINOPHILS 0.9 % (0-7); HEMATOCRIT 40.9 % (36.0-48.0); HEMOGLOBIN 13.6 g/dL (12-16); IMMATURE GRANULOCYTES 1.3 % (0-5); MCH 29.4 pg (26.0-34.0); MCHC 33.3 g/dL (31.0-37.0); MCV 88.3 fL (80.0-100.0); MEAN PLATELET VOLUME 10.3 fL (7.4-10.4); MONOCYTES 9.5 % (2-11); NEUTROPHILS 79.1 % (40-80); PLATELET COUNT 211 10x3/uL (130-400); RBC 4.63 10x6/uL (4.00-5.40); RDW 14.8 % (11.5-14.5); WBC 8.7 10x3/uL (4.8-10.8)
[2017-08-26 18:56] LABS: ALBUMIN 3.5 g/dL (3.4-5.0); ANION GAP 5.8 mmol/L (8-16); BILIRUBIN - TOTAL 0.51 mg/dL (0.2-1.3); CALCIUM 9.2 mg/dL (8.5-10.1); CREATININE - SERUM 1.1 mg/dL (0.6-1.3); PROTEIN - SERUM 7.4 g/dL (6.4-8.2)
[2017-08-26 19:06] LABS: POTASSIUM - SERUM 2.8 mmol/L (3.5-5.1)
[2017-08-26 20:42] LABS: APPEARANCE CLEAR (CLEAR); BILIRUBIN NEGATIVE (NEGATIVE); COLOR YELLOW (YELLOW); GLUCOSE NEGATIVE (NEGATIVE); KETONE NEGATIVE (NEGATIVE); NITRITE NEGATIVE (NEGATIVE); PROTEIN NEGATIVE (NEGATIVE); RED CELLS - URINE 0-5 /hpf (0-5); UROBILINOGEN NORMAL (NORMAL); WHITE CELLS - URINE 0-5 /hpf (0-5)
[2017-08-26 20:43] LABS: BACTERIA MODERATE /hpf (NONE SEEN); HYALINE CAST OCC /lpf (NONE SEEN); MUCUS <1+ /lpf (NONE SEEN)
[2017-08-26 20:51] VITALS: BP 134/50
[2017-08-27 00:29] VITALS: BP 167/56
[2017-08-27 04:17] VITALS: BP 115/62
[2017-08-27 06:35] LABS: BASOPHILS 0.2 % (0-2); EOSINOPHILS 0 % (0-7); HEMATOCRIT 37.9 % (36.0-48.0); HEMOGLOBIN 12.7 g/dL (12-16); IMMATURE GRANULOCYTES 0.9 % (0-5); MCH 29.4 pg (26.0-34.0); MCHC 33.5 g/dL (31.0-37.0); MCV 87.7 fL (80.0-100.0); MEAN PLATELET VOLUME 10.2 fL (7.4-10.4); MONOCYTES 1.7 % (2-11); NEUTROPHILS 89.2 % (40-80); PLATELET COUNT 197 10x3/uL (130-400); RBC 4.32 10x6/uL (4.00-5.40); RDW 14.8 % (11.5-14.5)
[2017-08-27 06:40] LABS: WBC 6.4 10x3/uL (4.8-10.8)
[2017-08-27 07:13] LABS: ALBUMIN 3.2 g/dL (3.4-5.0); ANION GAP 10.1 mmol/L (8-16); BILIRUBIN - TOTAL 0.48 mg/dL (0.2-1.3); CALCIUM 8.8 mg/dL (8.5-10.1); CARBON DIOXIDE 34.3 mmol/L (21.0-32.0); CREATININE - SERUM 1.1 mg/dL (0.6-1.3); PROTEIN - SERUM 6.8 g/dL (6.4-8.2)
[2017-08-27 07:14] LABS: POTASSIUM - SERUM 3.4 mmol/L (3.5-5.1)
[2017-08-27 08:00] VITALS: BP 130/55
[2017-08-27 12:00] VITALS: BP 123/58
[2017-08-27 13:54] VITALS: BMI 32.9
[2017-08-27 16:00] VITALS: BP 128/52
[2017-08-27 20:45] VITALS: BP 190/73
[2017-08-28 00:30] VITALS: BP 132/65
[2017-08-28 08:00] VITALS: BP 128/60
[2017-08-28 08:23] LABS: ANION GAP 14.6 mmol/L (8-16); CALCIUM 8.5 mg/dL (8.5-10.1); CARBON DIOXIDE 27.5 mmol/L (21.0-32.0); CREATININE - SERUM 1.2 mg/dL (0.6-1.3); MAGNESIUM - SERUM 1.8 mg/dL (1.8-2.4); PHOSPHOROUS 2.1 mg/dL (2.5-4.9); POTASSIUM - SERUM 3.1 mmol/L (3.5-5.1)
[2017-08-28 12:00] VITALS: BP 145/58
[2017-08-29] VITALS: BP 144/61
[2017-08-29 05:38] LABS: BASOPHILS 0 % (0-2); EOSINOPHILS 0 % (0-7); HEMATOCRIT 35.6 % (36.0-48.0); HEMOGLOBIN 11.7 g/dL (12-16); IMMATURE GRANULOCYTES 0.5 % (0-5); LYMPHOCYTES 10.2 % (15-50); MCHC 32.9 g/dL (31.0-37.0); MCV 88.1 fL (80.0-100.0); MEAN PLATELET VOLUME 10.4 fL (7.4-10.4); MONOCYTES 4.7 % (2-11); NEUTROPHILS 84.6 % (40-80); PLATELET COUNT 196 10x3/uL (130-400); RBC 4.04 10x6/uL (4.00-5.40)
[2017-08-29 05:42] LABS: WBC 10.5 10x3/uL (4.8-10.8)
[2017-08-29 05:57] LABS: ALBUMIN 2.9 g/dL (3.4-5.0); ANION GAP 12.1 mmol/L (8-16); BILIRUBIN - TOTAL 0.21 mg/dL (0.2-1.3); CALCIUM 8.8 mg/dL (8.5-10.1); CARBON DIOXIDE 27.9 mmol/L (21.0-32.0); CREATININE - SERUM 1.1 mg/dL (0.6-1.3); MAGNESIUM - SERUM 1.8 mg/dL (1.8-2.4); PHOSPHOROUS 2.4 mg/dL (2.5-4.9); PROTEIN - SERUM 6.1 g/dL (6.4-8.2)
[2017-08-29 06:20] VITALS: BP 94/64
[2017-08-29 08:12] VITALS: BP 149/68
[2017-08-29 11:30] VITALS: BP 138/66
[2017-08-29 15:40] VITALS: BP 132/68
[2017-08-29 21:52] VITALS: BP 173/66
[2017-08-30 00:52] VITALS: BP 133/60
[2017-08-30 05:28] LABS: BASOPHILS 0.1 % (0-2); EOSINOPHILS 0 % (0-7); HEMATOCRIT 37.7 % (36.0-48.0); HEMOGLOBIN 12.1 g/dL (12-16); IMMATURE GRANULOCYTES 1.2 % (0-5); LYMPHOCYTES 12.7 % (15-50); MCH 28.7 pg (26.0-34.0); MCHC 32.1 g/dL (31.0-37.0); MCV 89.3 fL (80.0-100.0); MEAN PLATELET VOLUME 10.2 fL (7.4-10.4); MONOCYTES 6.2 % (2-11); NEUTROPHILS 79.8 % (40-80); PLATELET COUNT 217 10x3/uL (130-400); RBC 4.22 10x6/uL (4.00-5.40); RDW 15.1 % (11.5-14.5); WBC 10.2 10x3/uL (4.8-10.8)
[2017-08-30 05:52] LABS: HEMOGLOBIN A1C 7.1 % (4.8-6.0)
[2017-08-30 06:07] LABS: ANION GAP 11.3 mmol/L (8-16); BILIRUBIN - TOTAL 0.26 mg/dL (0.2-1.3); CALCIUM 9.1 mg/dL (8.5-10.1); CARBON DIOXIDE 28.6 mmol/L (21.0-32.0); CREATININE - SERUM 1.1 mg/dL (0.6-1.3); POTASSIUM - SERUM 3.9 mmol/L (3.5-5.1); PROTEIN - SERUM 6.3 g/dL (6.4-8.2); THYROID STIMULATING HORMONE 0.18 uIU/mL (0.36-3.74)
[2017-08-30 07:25] VITALS: BP 153/61
[2017-08-30 08:00] VITALS: BP 152/66
[2017-08-30 12:03] VITALS: BP 140/63
[2017-08-30 18:02] LABS: LDL-HDL RATIO 1.5 ratio (1.5-3.5)
[2017-08-30 19:00] VITALS: BP 148/79
[2017-08-31] VITALS: BP 184/94
[2017-08-31 04:00] VITALS: BP 159/59
[2017-08-31 06:13] LABS: BASOPHILS 0.1 % (0-2); EOSINOPHILS 0 % (0-7); HEMATOCRIT 37.4 % (36.0-48.0); HEMOGLOBIN 12.1 g/dL (12-16); IMMATURE GRANULOCYTES 1.5 % (0-5); LYMPHOCYTES 8.2 % (15-50); MCH 28.7 pg (26.0-34.0); MCHC 32.4 g/dL (31.0-37.0); MCV 88.8 fL (80.0-100.0); MEAN PLATELET VOLUME 10.2 fL (7.4-10.4); MONOCYTES 3.9 % (2-11); NEUTROPHILS 86.3 % (40-80); PLATELET COUNT 197 10x3/uL (130-400); RBC 4.21 10x6/uL (4.00-5.40); RDW 14.9 % (11.5-14.5); WBC 8.9 10x3/uL (4.8-10.8)
[2017-08-31 07:05] LABS: ALBUMIN 2.9 g/dL (3.4-5.0); ANION GAP 13.2 mmol/L (8-16); BILIRUBIN - TOTAL 0.25 mg/dL (0.2-1.3); CALCIUM 8.8 mg/dL (8.5-10.1); CREATININE - SERUM 1.1 mg/dL (0.6-1.3); POTASSIUM - SERUM 4.2 mmol/L (3.5-5.1); PROTEIN - SERUM 6.2 g/dL (6.4-8.2)
[2017-08-31 08:05] VITALS: BP 155/75
[2017-08-31 12:58] VITALS: BP 145/71
[2017-08-31 17:23] VITALS: BP 109/63
[2017-08-31 19:00] VITALS: BP 163/77
[2017-08-31 22:47] VITALS: Ht 165.1 cm; Wt 94.2 kg
[2017-09-01 04:00] VITALS: BP 176/70
[2017-09-01 07:59] LABS: BASOPHILS 0.2 % (0-2); EOSINOPHILS 0.1 % (0-7); HEMATOCRIT 38.4 % (36.0-48.0); HEMOGLOBIN 12.6 g/dL (12-16); LYMPHOCYTES 8.6 % (15-50); MCH 28.9 pg (26.0-34.0); MCHC 32.8 g/dL (31.0-37.0); MCV 88.1 fL (80.0-100.0); MEAN PLATELET VOLUME 10.1 fL (7.4-10.4); MONOCYTES 6.3 % (2-11); NEUTROPHILS 81.8 % (40-80); PLATELET COUNT 201 10x3/uL (130-400); RBC 4.36 10x6/uL (4.00-5.40); RDW 15.1 % (11.5-14.5); WBC 10.2 10x3/uL (4.8-10.8)
[2017-09-01 08:10] LABS: CARBON DIOXIDE 28.2 mmol/L (21.0-32.0); CREATININE - SERUM 0.9 mg/dL (0.6-1.3); POTASSIUM - SERUM 4.2 mmol/L (3.5-5.1)
[2017-09-01 09:03] VITALS: BP 163/79
[2017-09-01 13:25] VITALS: BP 150/71
[2017-09-01 16:39] VITALS: BP 163/73
[2017-09-01 19:00] VITALS: BP 163/68
[2017-09-02 04:00] VITALS: BP 187/90
[2017-09-02 08:33] VITALS: BP 172/70
[2017-09-02 12:03] VITALS: BP 167/71
[2017-09-02 16:02] VITALS: BP 163/80
[2017-09-02 21:43] VITALS: BP 120/77
[2017-09-03 06:45] VITALS: BP 161/73
[2017-09-03 08:28] VITALS: BP 165/72
[2017-09-03 12:48] VITALS: BP 140/59
[2017-09-03 16:09] VITALS: BP 149/64
[2017-09-04 06:23] VITALS: BP 149/60
[2017-09-04 08:00] VITALS: BP 133/51
[2017-09-04 12:00] VITALS: BP 119/46
[2017-09-04 16:00] VITALS: BP 131/62
[2017-09-04 21:36] VITALS: BP 147/61
[2017-09-05 01:29] VITALS: BP 124/58
[2017-09-05 04:49] LABS: BASOPHILS 0.1 % (0-2); EOSINOPHILS 1.8 % (0-7); HEMATOCRIT 39.6 % (36.0-48.0); HEMOGLOBIN 12.8 g/dL (12-16); IMMATURE GRANULOCYTES 5.8 % (0-5); LYMPHOCYTES 26.7 % (15-50); MCH 29.2 pg (26.0-34.0); MCHC 32.3 g/dL (31.0-37.0); MCV 90.2 fL (80.0-100.0); MONOCYTES 8.5 % (2-11); NEUTROPHILS 57.1 % (40-80); PLATELET COUNT 210 10x3/uL (130-400); RBC 4.39 10x6/uL (4.00-5.40); RDW 15.3 % (11.5-14.5); WBC 9.2 10x3/uL (4.8-10.8)
[2017-09-05 05:04] LABS: ANION GAP 8.4 mmol/L (8-16); CALCIUM 8.4 mg/dL (8.5-10.1); CARBON DIOXIDE 32.3 mmol/L (21.0-32.0); CREATININE - SERUM 0.9 mg/dL (0.6-1.3); POTASSIUM - SERUM 3.7 mmol/L (3.5-5.1)
[2017-09-05 10:22] VITALS: BP 127/47
[2017-09-05 13:42] VITALS: BP 125/53
[2017-09-05 16:35] VITALS: BP 140/59
[2017-09-05] MEDS ORDERED: NYSTATIN ORAL SU5 ML PO (18:57)
== END 2017-09-05 20:47 | disposition home or self-care (01) | DRG 178 ==
LOC: D.M2 18:00
PROVIDERS: Family Medicine; Internal Medicine Gastroenterology; Internal Medicine Pulmonary Disease
DX: J15.6 Pneumonia due to other Gram-negative bacteria (principal); J44.1 Chronic obstructive pulmonary disease with (acute) exacerbation; B37.0 Candidal stomatitis; J98.11 Atelectasis; J44.0 Chronic obstructive pulmonary disease with (acute) lower respiratory infection; B96.5 Pseudomonas (aeruginosa) (mallei) (pseudomallei) as the cause of diseases classified elsewhere; I25.10 Atherosclerotic heart disease of native coronary artery without angina pectoris; I10 Essential (primary) hypertension; I73.9 Peripheral vascular disease, unspecified; K21.9 Gastro-esophageal reflux disease without esophagitis; K31.84 Gastroparesis; J30.9 Allergic rhinitis, unspecified; E78.5 Hyperlipidemia, unspecified; E87.6 Hypokalemia; G25.81 Restless legs syndrome; M19.90 Unspecified osteoarthritis, unspecified site; H69.83 Other specified disorders of Eustachian tube, bilateral; Z87.891 Personal history of nicotine dependence

== ENCOUNTER → 2017-10-08 17:32 | Outpatient (CLI) | payer MEDICARE ==
[2017-08-31 22:47] VITALS: BMI 32.9
== END | disposition home or self-care (01) ==
LOC: D.LABREF 17:32
DX: J18.9 Pneumonia, unspecified organism (principal)

== ENCOUNTER 2017-10-13 12:42 | Inpatient (IN) | payer MEDICARE ==
[~2017-10-13] VITALS: Ht 165.1 cm; Wt 94.1 kg
[2017-10-13 15:12] VITALS: Ht 165.1 cm; Wt 94.1 kg
[2017-10-13 15:28] LABS: BASOPHILS 0.2 % (0-2); EOSINOPHILS 2.5 % (0-7); HEMATOCRIT 41.8 % (36.0-48.0); HEMOGLOBIN 13.8 g/dL (12-16); IMMATURE GRANULOCYTES 0.2 % (0-5); LYMPHOCYTES 14.9 % (15-50); MCH 29.7 pg (26.0-34.0); MCV 89.9 fL (80.0-100.0); MEAN PLATELET VOLUME 10.7 fL (7.4-10.4); MONOCYTES 6.7 % (2-11); NEUTROPHILS 75.5 % (40-80); PLATELET COUNT 182 10x3/uL (130-400); RBC 4.65 10x6/uL (4.00-5.40); RDW 14.2 % (11.5-14.5); WBC 9.2 10x3/uL (4.8-10.8)
[2017-10-13 15:42] LABS: ALBUMIN 3.8 g/dL (3.4-5.0); ANION GAP 12.9 mmol/L (8-16); BILIRUBIN - TOTAL 0.81 mg/dL (0.2-1.3); CALCIUM 9.2 mg/dL (8.5-10.1); CARBON DIOXIDE 28.4 mmol/L (21.0-32.0); CREATININE - SERUM 1.1 mg/dL (0.6-1.3); POTASSIUM - SERUM 3.3 mmol/L (3.5-5.1); PROTEIN - SERUM 7.3 g/dL (6.4-8.2)
[2017-10-13 19:00] VITALS: BP 130/50
[2017-10-14 04:07] LABS: BASOPHILS 0 % (0-2); EOSINOPHILS 0 % (0-7); HEMOGLOBIN 12.4 g/dL (12-16); IMMATURE GRANULOCYTES 0.2 % (0-5); MCH 28.8 pg (26.0-34.0); MCHC 32.6 g/dL (31.0-37.0); MCV 88.4 fL (80.0-100.0); MEAN PLATELET VOLUME 10.6 fL (7.4-10.4); MONOCYTES 1.1 % (2-11); NEUTROPHILS 90.7 % (40-80); PLATELET COUNT 169 10x3/uL (130-400); RDW 14.1 % (11.5-14.5); WBC 8.4 10x3/uL (4.8-10.8)
[2017-10-14 04:27] LABS: ALBUMIN 3.3 g/dL (3.4-5.0); ANION GAP 11.1 mmol/L (8-16); BILIRUBIN - TOTAL 0.4 mg/dL (0.2-1.3); CALCIUM 8.5 mg/dL (8.5-10.1); CARBON DIOXIDE 27.8 mmol/L (21.0-32.0); CREATININE - SERUM 0.9 mg/dL (0.6-1.3); PHOSPHOROUS 3.6 mg/dL (2.5-4.9); PROTEIN - SERUM 6.9 g/dL (6.4-8.2)
[2017-10-14 04:28] LABS: POTASSIUM - SERUM 3.9 mmol/L (3.5-5.1)
[2017-10-14 04:52] VITALS: BP 135/65
[2017-10-14 08:19] VITALS: BP 123/62
[2017-10-14 11:32] VITALS: BP 122/65
[2017-10-14 15:44] VITALS: BP 128/75
[2017-10-14 20:53] VITALS: BP 129/59
[2017-10-15 02:35] VITALS: BP 131/66
[2017-10-15 06:08] VITALS: BP 129/63
[2017-10-15 07:51] VITALS: BP 126/61
[2017-10-15 10:19] LABS: IMMUNOGLOBULIN A 178 mg/dL (64-422); IMMUNOGLOBULIN G 688 mg/dL (700-1600)
[2017-10-15 15:30] VITALS: BP 138/61
[2017-10-15 19:00] VITALS: BP 143/73
[2017-10-16 04:00] VITALS: BP 140/68
[2017-10-16 04:55] LABS: BASOPHILS 0 % (0-2); EOSINOPHILS 0.1 % (0-7); HEMOGLOBIN 10.8 g/dL (12-16); IMMATURE GRANULOCYTES 0.4 % (0-5); LYMPHOCYTES 12.1 % (15-50); MCH 28.6 pg (26.0-34.0); MCHC 31.8 g/dL (31.0-37.0); MCV 89.9 fL (80.0-100.0); MEAN PLATELET VOLUME 10.7 fL (7.4-10.4); MONOCYTES 6.3 % (2-11); NEUTROPHILS 81.1 % (40-80); PLATELET COUNT 170 10x3/uL (130-400); RBC 3.78 10x6/uL (4.00-5.40); WBC 7.4 10x3/uL (4.8-10.8)
[2017-10-16 05:09] LABS: ALBUMIN 2.7 g/dL (3.4-5.0); ANION GAP 11.4 mmol/L (8-16); CALCIUM 8.5 mg/dL (8.5-10.1); CARBON DIOXIDE 25.9 mmol/L (21.0-32.0); CREATININE - SERUM 0.9 mg/dL (0.6-1.3); POTASSIUM - SERUM 4.3 mmol/L (3.5-5.1); PROTEIN - SERUM 5.9 g/dL (6.4-8.2)
[2017-10-16 05:14] LABS: BILIRUBIN - TOTAL 0.05 mg/dL (0.2-1.3)
[2017-10-16 09:50] VITALS: BP 153/62
[2017-10-16 12:15] VITALS: BP 156/75
[2017-10-16 15:19] VITALS: BP 121/51
[2017-10-16 20:40] VITALS: BP 119/62
[2017-10-17 00:15] VITALS: BP 117/52
[2017-10-17 05:09] VITALS: BP 119/58
[2017-10-17 06:47] LABS: BASOPHILS 0 % (0-2); EOSINOPHILS 0.2 % (0-7); HEMATOCRIT 38.5 % (36.0-48.0); HEMOGLOBIN 12.4 g/dL (12-16); IMMATURE GRANULOCYTES 0.7 % (0-5); LYMPHOCYTES 8.4 % (15-50); MCH 28.8 pg (26.0-34.0); MCHC 32.2 g/dL (31.0-37.0); MCV 89.5 fL (80.0-100.0); MEAN PLATELET VOLUME 10.3 fL (7.4-10.4); MONOCYTES 1.6 % (2-11); NEUTROPHILS 89.1 % (40-80); PLATELET COUNT 186 10x3/uL (130-400)
[2017-10-17 06:51] LABS: WBC 5.5 10x3/uL (4.8-10.8)
[2017-10-17 07:03] LABS: ANION GAP 17.2 mmol/L (8-16); CALCIUM 8.3 mg/dL (8.5-10.1); CARBON DIOXIDE 20.9 mmol/L (21.0-32.0); POTASSIUM - SERUM 4.1 mmol/L (3.5-5.1)
[2017-10-17 07:04] LABS: CREATININE - SERUM 1.2 mg/dL (0.6-1.3)
[2017-10-17 07:41] VITALS: BP 144/69
[2017-10-17 11:37] VITALS: BP 113/61
[2017-10-17 15:49] VITALS: BP 115/46
[2017-10-17 20:58] VITALS: BP 127/47
[2017-10-18 01:12] VITALS: BP 125/57
[2017-10-18 03:38] LABS: BASOPHILS 0 % (0-2); EOSINOPHILS 0 % (0-7); HEMATOCRIT 35.5 % (36.0-48.0); HEMOGLOBIN 11.6 g/dL (12-16); IMMATURE GRANULOCYTES 0.8 % (0-5); LYMPHOCYTES 11.1 % (15-50); MCH 28.7 pg (26.0-34.0); MCHC 32.7 g/dL (31.0-37.0); MCV 87.9 fL (80.0-100.0); MEAN PLATELET VOLUME 10.2 fL (7.4-10.4); MONOCYTES 3.8 % (2-11); NEUTROPHILS 84.3 % (40-80); PLATELET COUNT 169 10x3/uL (130-400); RBC 4.04 10x6/uL (4.00-5.40); RDW 13.5 % (11.5-14.5); WBC 6.4 10x3/uL (4.8-10.8)
[2017-10-18 03:58] LABS: ANION GAP 8.7 mmol/L (8-16); CALCIUM 8.3 mg/dL (8.5-10.1); CREATININE - SERUM 1.1 mg/dL (0.6-1.3); POTASSIUM - SERUM 3.8 mmol/L (3.5-5.1)
[2017-10-18 04:00] LABS: CARBON DIOXIDE 29.1 mmol/L (21.0-32.0)
[2017-10-18 05:58] VITALS: BP 132/50
[2017-10-18 11:27] VITALS: BP 147/80
[2017-10-18 16:10] VITALS: BP 118/46
[2017-10-18 19:00] VITALS: BP 133/52
[2017-10-19] VITALS: BP 125/62
[2017-10-19 04:00] VITALS: BP 154/61
[2017-10-19 04:38] LABS: ANION GAP 8.5 mmol/L (8-16); CALCIUM 8.1 mg/dL (8.5-10.1); CARBON DIOXIDE 30.7 mmol/L (21.0-32.0); POTASSIUM - SERUM 4.2 mmol/L (3.5-5.1)
[2017-10-19 05:02] LABS: HEMATOCRIT 35.2 % (36.0-48.0); HEMOGLOBIN 11.8 g/dL (12-16); MCH 28.9 pg (26.0-34.0); MCHC 33.5 g/dL (31.0-37.0); MCV 86.3 fL (80.0-100.0); MEAN PLATELET VOLUME 10.2 fL (7.4-10.4); NEUTROPHILS 87.8 % (40-80); PLATELET COUNT 183 10x3/uL (130-400); RBC 4.08 10x6/uL (4.00-5.40); WBC 7.4 10x3/uL (4.8-10.8)
[2017-10-19 09:25] VITALS: BP 146/78
[2017-10-19 11:46] VITALS: BP 146/66
[2017-10-19 16:11] VITALS: BP 156/73
[2017-10-19 20:00] VITALS: BP 109/49
[2017-10-20] VITALS: BP 112/56
[2017-10-20 04:00] VITALS: BP 100/60
[2017-10-20 08:46] VITALS: BP 165/80
[2017-10-20 12:23] VITALS: BP 152/79
[2017-10-20 16:00] VITALS: BP 143/79
[2017-10-20 19:00] VITALS: BP 146/70
[2017-10-20 20:08] LABS: IMMUNOGLOBULIN E 94 IU/mL (0-100)
[2017-10-21 04:00] VITALS: BP 147/73
[2017-10-21 07:44] VITALS: BP 132/68
[2017-10-21] MEDS ORDERED: ALBUTEROL2.5 MG/3 M UPD (10:40)
[2017-10-21] MEDS ORDERED: NYSTATIN ORAL SU5 ML PO (10:40)
[2017-10-21] MEDS ORDERED: ANUSOL-HC25 MG RC (10:43)
[2017-10-21] MEDS ORDERED: TERAZOL 7 VAGIN45 GM VG (10:44)
[2017-10-21] MEDS ORDERED: MEDROL DOSE PACK4 MG PO (10:45)
[2017-10-21 10:57] VITALS: BP 129/64
== END 2017-10-21 14:25 | disposition home or self-care (01) | DRG 189 ==
LOC: D.SDCHOLD 12:42 → D.M2 12:42
PROVIDERS: Family Medicine; Internal Medicine Pulmonary Disease
DX: J96.21 Acute and chronic respiratory failure with hypoxia (principal); J44.0 Chronic obstructive pulmonary disease with (acute) lower respiratory infection; J44.1 Chronic obstructive pulmonary disease with (acute) exacerbation; I50.32 Chronic diastolic (congestive) heart failure; J20.8 Acute bronchitis due to other specified organisms; I11.0 Hypertensive heart disease with heart failure; K21.9 Gastro-esophageal reflux disease without esophagitis; E78.5 Hyperlipidemia, unspecified; I25.10 Atherosclerotic heart disease of native coronary artery without angina pectoris

== ENCOUNTER 2017-11-01 10:23 | Inpatient (IN) | payer MEDICARE ==
[~2017-11-01] VITALS: Ht 167.6 cm; Wt 92.1 kg
--- NOTE | ~2017-11-01 | CN ---
PATIENT NAME:MARIELOS BURLESON MEDICAL RECORD: [id number] : 38 LOCATION:D.M2 D.2101 ADMIT DATE: 11/01/17 ACCOUNT: [id number] CONSULTING PHYSICIAN: ANNABELLE LIGHT MD REFERRING PHYSICIAN: JAMES AGUILERA DO DATE OF CONSULTATION: 11/01/2017 CONSULT REQUESTING PHYSICIAN: James Aguilera DO REASON FOR CONSULTATION: Acute asthma, chronic obstructive pulmonary disease exacerbation, febrile illness. HISTORY OF PRESENT ILLNESS: Ms. Burleson is a 77-year-old female, very well known to me. The patient was just discharged a few days ago. According to the patient, she says for the last 3 days the patient has a fever, coughing, wheezing, shortness of breath with mild exertion. The patient was seen in Dr. Aguilera's office and admitted with acute exacerbation of COPD. The cough is productive with yellowish greenish color sputum production. She also hears herself wheezing. REVIEW OF SYSTEMS: Mainly in the history of present illness. PAST MEDICAL HISTORY: 1. COPD, home oxygen dependent. 2. 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 3. Coronary artery disease, status post CABG. 4. Hypertension. 5. Hyperlipidemia. 6. Gastroesophageal reflux disease. 7. Peripheral vascular disease. PAST SURGICAL HISTORY: 1. CABG. 2. Cholecystectomy. 3. Cataract surgery. 4. Hysterectomy. ALLERGIES: SHE IS ALLERGIC TO FLAGYL, AMOXICILLIN, AUGMENTIN, LEVAQUIN. MEDICATIONS: She is on methylprednisolone, albuterol/ipratropium nebulizer. Vancomycin IV. PERSONAL AND SOCIAL HISTORY: The patient is an ex-smoker. She is a nondrinker. She lives with her . FAMILY HISTORY: Significant for cardiovascular disease. PHYSICAL EXAMINATION: GENERAL: Now, the patient is lying comfortably in bed. She is not in acute distress. VITAL SIGNS: The blood pressure is 140/65, pulse is ____, respirations 21, temperature 98.8, and SpO2 is 88-92% on 3 liters nasal cannula. HEENT: Conjunctivae pink, sclerae nonicteric. NECK: Supple, no JVD. CHEST: Excursion is minimal on both sides. There are bibasilar crackles and CONSULT REPORT [id number] MARIELOS BURLESON wheeze on forceful expiration. HEART: Rate and rhythm regular, normal sound, no murmur. ABDOMEN: Soft, bowel sounds present. No hepatosplenomegaly. RECTAL: Deferred. EXTREMITIES: No cyanosis, no clubbing, no pedal edema. SKIN: Warm, normal turgor. CENTRAL NERVOUS SYSTEM: The patient is awake and alert. There are no obvious cranial nerve abnormalities. The gait was not tested. CHEST RADIOGRAPH: There are increased interstitial markings, no acute infiltrate. LABORATORY DATA: CBC: WBC 13.4, hemoglobin 13.7, hematocrit 41.6, platelet count 214. Chemistry: Sodium 138, potassium 3.8, BUN is 14, creatinine 1.1, glucose 108. IMPRESSION: 1. Acute exacerbation of chronic obstructive pulmonary disease. 2. 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 3. Recent colonization with Pseudomonas. 4. Rixcw-kr-rkcnsjq hypoxic respiratory failure. 5. Tracheobronchitis, possible pneumonitis. 6. Leukocytosis. 7. Gastroesophageal reflux disease. 8. Coronary artery disease. RECOMMENDATIONS: 1. Continue vancomycin. I will add meropenem IV, methylprednisolone IV, adjust the dose. Albuterol/ipratropium nebulizer. Start on Brovana budesonide nebulizer. 2. Guaifenesin 2 tablets b.i.d. 3. Singulair 10 mg a day. 4. Follow-up labs and chest radiograph. Check the sputum culture, check the BNP. Dr. Aguilera thank you for involving me in the care of Ms. Burleson. TRANSINT:[id number] Voice Confirmation ID: [id number] DOCUMENT ID: [id number] ANNABELLE LIGHT MD at 1340 CC: JAMES AGUILERA DO [id number] DICTATION DATE: 11/01/17 1629 GENERAL FREIGHT AGENT: 11/01/17 2339 DIS IN 11/03/17 [id number] [place] [address]
[~2017-11-01 10:23] MED LIST changes: +ALBUTEROL2.5 MG/3 M UPD; +ANUSOL-HC25 MG RC; +TERAZOL 7 VAGIN45 GM VG
[2017-11-01 11:16] VITALS: BP 140/65; BMI 32.5
[2017-11-01 11:26] LABS: BASOPHILS 0.1 % (0-2); EOSINOPHILS 2.8 % (0-7); HEMATOCRIT 41.6 % (36.0-48.0); HEMOGLOBIN 13.7 g/dL (12-16); IMMATURE GRANULOCYTES 0.5 % (0-5); LYMPHOCYTES 7.3 % (15-50); MCH 29.3 pg (26.0-34.0); MCHC 32.9 g/dL (31.0-37.0); MCV 88.9 fL (80.0-100.0); MEAN PLATELET VOLUME 9.9 fL (7.4-10.4); MONOCYTES 4.6 % (2-11); NEUTROPHILS 84.7 % (40-80); PLATELET COUNT 214 10x3/uL (130-400); RBC 4.68 10x6/uL (4.00-5.40); RDW 13.7 % (11.5-14.5); WBC 13.4 10x3/uL (4.8-10.8)
[2017-11-01 11:28] VITALS: BP 140/65
[2017-11-01 11:47] LABS: ALBUMIN 3.2 g/dL (3.4-5.0); ANION GAP 12.9 mmol/L (8-16); BILIRUBIN - TOTAL 0.6 mg/dL (0.2-1.3); CALCIUM 8.6 mg/dL (8.5-10.1); CARBON DIOXIDE 28.9 mmol/L (21.0-32.0); CREATININE - SERUM 1.1 mg/dL (0.6-1.3); POTASSIUM - SERUM 3.8 mmol/L (3.5-5.1); PROTEIN - SERUM 7.6 g/dL (6.4-8.2)
[2017-11-01 14:03] LABS: APPEARANCE CLEAR (CLEAR); BILIRUBIN NEGATIVE (NEGATIVE); COLOR YELLOW (YELLOW); GLUCOSE NEGATIVE (NEGATIVE); KETONE NEGATIVE (NEGATIVE); NITRITE NEGATIVE (NEGATIVE); PROTEIN NEGATIVE (NEGATIVE); UROBILINOGEN NORMAL (NORMAL)
[2017-11-01 14:04] LABS: BACTERIA FEW /hpf (NONE SEEN); EPITHELIAL CELLS 0-5 /hpf (0-5); MUCUS <1+ /lpf (NONE SEEN); RED CELLS - URINE OCC /hpf (0-5); WHITE CELLS - URINE OCC /hpf (0-5)
[2017-11-01 15:22] VITALS: BP 97/50
[2017-11-01 19:00] VITALS: BP 99/46
[2017-11-02] VITALS: BP 101/45
[2017-11-02 04:00] VITALS: BP 121/62
[2017-11-02 05:27] LABS: BASOPHILS 0 % (0-2); EOSINOPHILS 0 % (0-7); HEMATOCRIT 36.4 % (36.0-48.0); HEMOGLOBIN 11.9 g/dL (12-16); IMMATURE GRANULOCYTES 0.4 % (0-5); LYMPHOCYTES 4.9 % (15-50); MCH 28.5 pg (26.0-34.0); MCHC 32.7 g/dL (31.0-37.0); MCV 87.3 fL (80.0-100.0); MEAN PLATELET VOLUME 10.2 fL (7.4-10.4); MONOCYTES 1.2 % (2-11); NEUTROPHILS 93.5 % (40-80); PLATELET COUNT 199 10x3/uL (130-400); RBC 4.17 10x6/uL (4.00-5.40); RDW 13.4 % (11.5-14.5)
[2017-11-02 05:41] LABS: ALBUMIN 2.6 g/dL (3.4-5.0); ANION GAP 14.1 mmol/L (8-16); BILIRUBIN - TOTAL 0.32 mg/dL (0.2-1.3); CALCIUM 8.9 mg/dL (8.5-10.1); CARBON DIOXIDE 24.5 mmol/L (21.0-32.0); CREATININE - SERUM 1.1 mg/dL (0.6-1.3); POTASSIUM - SERUM 3.6 mmol/L (3.5-5.1); PROTEIN - SERUM 6.7 g/dL (6.4-8.2); WBC 6.7 10x3/uL (4.8-10.8)
[2017-11-02 08:02] VITALS: BP 147/62
[2017-11-02 10:18] VITALS: Ht 167.6 cm; Wt 92.1 kg
[2017-11-02 11:34] VITALS: BP 160/58
[2017-11-02 16:13] VITALS: BP 130/57
[2017-11-02 20:00] VITALS: BP 139/58
[2017-11-03 04:00] VITALS: BP 129/37
[2017-11-03 08:00] VITALS: BP 128/77
[2017-11-03 08:01] LABS: BASOPHILS 0 % (0-2); EOSINOPHILS 0.1 % (0-7); HEMATOCRIT 36.5 % (36.0-48.0); IMMATURE GRANULOCYTES 0.4 % (0-5); LYMPHOCYTES 5.9 % (15-50); MCH 28.9 pg (26.0-34.0); MCHC 32.9 g/dL (31.0-37.0); MEAN PLATELET VOLUME 10.1 fL (7.4-10.4); MONOCYTES 4.6 % (2-11); PLATELET COUNT 233 10x3/uL (130-400); RBC 4.15 10x6/uL (4.00-5.40); RDW 13.4 % (11.5-14.5)
[2017-11-03 08:19] LABS: ALBUMIN 2.8 g/dL (3.4-5.0); ANION GAP 15.3 mmol/L (8-16); BILIRUBIN - TOTAL 0.19 mg/dL (0.2-1.3); CALCIUM 9.3 mg/dL (8.5-10.1); CARBON DIOXIDE 24.2 mmol/L (21.0-32.0); CREATININE - SERUM 0.9 mg/dL (0.6-1.3); POTASSIUM - SERUM 3.5 mmol/L (3.5-5.1); PROTEIN - SERUM 6.9 g/dL (6.4-8.2)
[2017-11-03 08:22] LABS: WBC 13.3 10x3/uL (4.8-10.8)
[2017-11-03 12:34] VITALS: BP 141/68
[2017-11-03] MEDS ORDERED: MEDROL DOSE PACK4 MG PO (14:45)
[2017-11-03] MEDS ORDERED: ZPAK PO (14:48)
[2017-11-03 17:14] VITALS: BP 119/65
[2017-12-07] MEDS ORDERED: REGLAN5 MG PO (17:04)
[2017-12-09] MEDS ORDERED: VANCOMYCIN250 MG/51 PO (12:16)
== END 2017-11-03 17:31 | disposition home or self-care (01) | DRG 193 ==
LOC: D.M2 10:23 → D.SDCHOLD 10:23 → D.M2 10:47
PROVIDERS: Family Medicine
DX: J18.9 Pneumonia, unspecified organism (principal); J96.21 Acute and chronic respiratory failure with hypoxia; J44.1 Chronic obstructive pulmonary disease with (acute) exacerbation; M35.1 Other overlap syndromes; J44.0 Chronic obstructive pulmonary disease with (acute) lower respiratory infection; I25.10 Atherosclerotic heart disease of native coronary artery without angina pectoris; Z95.1 Presence of aortocoronary bypass graft; K21.9 Gastro-esophageal reflux disease without esophagitis; I10 Essential (primary) hypertension; E78.5 Hyperlipidemia, unspecified

== ENCOUNTER → 2017-12-02 07:10 | Outpatient (CLI) | payer MEDICARE ==
[2017-11-02 10:18] VITALS: BMI 32.3
[~2017-12-02 07:10] MED LIST changes: +AZELASTINE HCL6 ML EACH EYE; +METAMUCIL PACKE1 PKT PO; +MUCOMYST 20200 MG/M2 INH; +PROBIOTIC250 MG PO; +REGLAN5 MG PO; +REQUIP1 MG PO; +SALINE NASAL SP45 ML NS; +STERAPRED DS 1010 MG PO; +VANCOMYCIN250 MG/51 PO; +VITAMIN D5000 UNIT PO; +VITAMIN E400 UNI2 PO; +ZPAK PO
== END | disposition home or self-care (01) ==
LOC: D.RAD 07:10
DX: J44.9 Chronic obstructive pulmonary disease, unspecified (principal)

== ENCOUNTER 2018-01-27 12:15 | Inpatient (IN) | payer MEDICARE, MEDICAID ==
[~2018-01-27] VITALS: Ht 165.1 cm; Wt 91.2 kg
--- NOTE | ~2018-01-27 | CN ---
PATIENT NAME:MARIELOS BURLESON MEDICAL RECORD: [id number] : 38 LOCATION:D.MS [id number] ADMIT DATE: 01/27/18 ACCOUNT: [id number] CONSULTING PHYSICIAN: ANNABELLE LIGHT MD REFERRING PHYSICIAN: IRINA AGUILERA DO DATE OF CONSULTATION: 01/27/2018 CONSULT REQUESTING PHYSICIAN: Dale Aguilera. REASON FOR CONSULTATION: Acute asthma exacerbation, dkzfl-re-tcfcjst hypoxic respiratory failure. HISTORY OF PRESENT ILLNESS: Ms. Burleson is a 77-year-old female, very well known to my service. The patient has a history of asthma, COPD, home oxygen dependent. According to the patient for the last few days, the patient is not feeling well, she is coughing, she is wheezing, she has shortness of breath with mild exertion. She was seen in Dr. Aguilera's office and directly admitted to the hospital. Denies any fever and chill, cough is productive with very little sputum. REVIEW OF SYSTEMS: Mainly in the history of present illness. PAST MEDICAL HISTORY: 1. Asthma. 2. Chronic obstructive pulmonary disease. 3. Chronic hypoxic respiratory failure. 4. Gastroesophageal reflux disease. 5. History of multidrug resistant Pseudomonas and pneumonia. PAST SURGICAL HISTORY: 1. Cholecystectomy. 2. Cataract surgery. 3. Hysterectomy. 4. CABG. ALLERGIES: SHE IS ALLERGIC TO FLAGYL, AMOXICILLIN, IODINE, LEVOFLOXACIN. [facility]. PERSONAL AND SOCIAL HISTORY: The patient is an ex-smoker. She is a nondrinker. FAMILY HISTORY: Significant for cardiovascular disease, diabetes, and cancer. PHYSICAL EXAMINATION: GENERAL: Now, the patient is lying comfortably in bed. She is not in acute distress. VITAL SIGNS: The blood pressure is 120/65, pulse is 83, respiration 18, temperature 98.1, and SPO2 is 93% on 2.5 liters nasal cannula. HEENT: Conjunctivae are pink. Sclerae are not icteric. NECK: Supple, no JVD. CHEST: Excursion is minimal on both sides. Wheeze on forceful expiration. HEART: Rhythm regular, normal sound, no murmur. ABDOMEN: Soft, bowel sounds present. No hepatosplenomegaly. There is an anterior abdominal wall hernia. EXTREMITIES: No cyanosis, no clubbing, no pedal edema. CONSULT REPORT [id number] MARIELOS BURLESON CENTRAL NERVOUS SYSTEM: The patient is awake and alert. There are no obvious cranial nerve abnormality. The gait was not tested. CHEST RADIOGRAPH: There is hyperinflation, no acute infiltrate. OTHER LABORATORY DATA: CBC: WBC is 6.9, hemoglobin 13.5, hematocrit 40.7, the platelet count 227. Chemistry: Sodium 140, potassium is 3.4, BUN is 17, creatinine is 1. IMPRESSION: 1. Rjadj-ns-hnxwjsf hypoxic respiratory failure. 2. Acute exacerbation of asthma. 3. Asthma, chronic obstructive pulmonary disease overlap syndrome. 4. Tracheobronchitis. 5. Acute cough. 6. Hypertension. 7. Hypokalemia. 8. Coronary artery disease. 9. Restless leg syndrome. 10. Gastroesophageal reflux disease. 11. Congestive heart failure, possible chronic systolic dysfunction. RECOMMENDATION: Start on Brovana, budesonide nebulizer, albuterol and ipratropium nebulizer, albuterol nebulizer q.2 hourly p.r.n., Mucinex DM, methylprednisolone IV, supplemental oxygen. Continue home medications. Dr. Aguilera, thank you for involving me in the care of Ms. Burleson. TRANSINT:[id number] Voice Confirmation ID: [id number] DOCUMENT ID: [id number] ANNABELLE LIGHT MD at 1806 CC: IRINA AGUILERA DO [id number] DICTATION DATE: 01/27/18 174 PROGRAM DIR: 01/27/18 1813 DIS IN 02/01/18 [place] [id number] [place] [address]
--- NOTE | ~2018-01-27 | EC ---
PATIENT:MARIELOS TALAMANTES DATE OF SERVICE: 01/27/18 SEX: F MEDICAL RECORD: [id number] DATE OF : 38 LOCATION:D.MS Mike222 AGE OF PATIENT: 77 ADMISSION DATE: 01/27/18 REFERRING PHYSICIAN: INTERPRETING PHYSICIAN: DIAZ MOULTON MD ECHOCARDIOGRAM REPORT ECHO CHARGES 4 ECHO COMPLETE Date: 01/27 CLINICAL DIAGNOSIS: COPD,EDEMA/EF HX OF CAD/CABG ECHOCARDIOGRAPHIC MEASUREMENTS (adult normal given) AC root (d.<3.7cm) 3.1 cm LV Septum d (<1.2 cm> 1.4 cm Valve Excursion 1.5 cm LV Septum (systole) 1.5 cm Left Atria (s.<4.0cm> 3.5 cm LVPW d(<1.2cm) 1.7 cm RV (d.<2.3cm) 3.7 cm LVPW (sytole) 1.8 cm LV diastole(<5.6CM) 4.1 cm MV E-F(>70mm/sec) cm LV systole 2.8 cm LVOT Diameter 1.8 cm MV exc.(>10mm) 1.4 cm Est.ejection fraction (50-75%) % DOPPLER: LVIT cm/sec A 114 cm/sec E 85.0 cm/sec LA cm/sec RVSP 34 mmHg LVOT 95 cm/sec AOP1/2T m/s Asc. Ao 121 cm/sec RVOT 98 cm/sec RA cm/sec PA 128 cm/sec AV Gradient Peak 5.82 mmHg AV Mean 3.09 mmHg AV Area 1.7 cm MV Gradient Peak 4.52 mmHg MV Mean 1.90 mmHg MV Area cm COMMENTS: Will Call Clerk: Heri SCOTT Collections Assistant: [address] Dr. Moulton TAPE# PACS Pericardial Effusion N DATE OF SERVICE: 01/27/2018 FINDINGS: 1. Left ventricular chamber size is within normal limits. Left ventricular systolic function is normal. Overall ejection fraction estimated at 55%. 2. Left atrium, right atrium, and right ventricle chamber sizes are within normal limits. 3. Valvular structures have normal structure and motion. 4. Doppler interrogation reveals only mild tricuspid regurgitation, no other valvular insufficiency or stenosis and pulmonary systolic pressure is normal, ECHOCARDIOGRAM REPORT [id number] MARIELOS TALAMANTES estimated 34 mmHg. 5. No evidence of pericardial effusion or left ventricular thrombus. TRANSINT:[id number] Voice Confirmation ID: [id number] DOCUMENT ID: [id number] DIAZ MOULTON MD at 1403 CC: [id number] DICTATION DATE: 01/28/18 1215 BATCH FREEZER: 01/28/18 1236 DIS IN 02/01/18 [place] [id number] [place] [id number]
[~2018-01-27 12:15] MED LIST changes: -AZELASTINE HCL6 ML EACH EYE; -METAMUCIL PACKE1 PKT PO; -MUCOMYST 20200 MG/M2 INH; -PROBIOTIC250 MG PO; -REQUIP1 MG PO; -SALINE NASAL SP45 ML NS; -STERAPRED DS 1010 MG PO; -VITAMIN D5000 UNIT PO; -VITAMIN E400 UNI2 PO
[2018-01-27] MEDS ORDERED: REQUIP1 MG PO (14:18)
[2018-01-27] MEDS ORDERED: HYDROCHLOROTH12.5 M1 PO (14:19)
[2018-01-27] MEDS ORDERED: MUCOMYST 20200 MG/M2 INH (14:20)
[2018-01-27] MEDS ORDERED: VITAMIN D5000 UNIT PO (14:21)
[2018-01-27] MEDS ORDERED: VITAMIN E400 UNI2 PO (14:22)
[2018-01-27] MEDS ORDERED: SALINE NASAL SP45 ML NS (14:23)
[2018-01-27] MEDS ORDERED: AZELASTINE HCL6 ML EACH EYE (14:24)
[2018-01-27] MEDS ORDERED: FLUTICASONE PRO16 GM NASAL (14:24)
[2018-01-27] MEDS ORDERED: PROBIOTIC250 MG PO (14:25)
[2018-01-27] MEDS ORDERED: METAMUCIL PACKE1 PKT PO (14:26)
[2018-01-27 14:43] VITALS: BP 119/61; BMI 33.5
[2018-01-27 15:08] LABS: BASOPHILS 0.3 % (0-2); EOSINOPHILS 2.9 % (0-7); HEMATOCRIT 40.7 % (36.0-48.0); HEMOGLOBIN 13.5 g/dL (12-16); IMMATURE GRANULOCYTES 0.9 % (0-5); LYMPHOCYTES 19.5 % (15-50); MCH 28.2 pg (26.0-34.0); MCHC 33.2 g/dL (31.0-37.0); MCV 85.1 fL (80.0-100.0); MEAN PLATELET VOLUME 10.4 fL (7.4-10.4); MONOCYTES 7.6 % (2-11); NEUTROPHILS 68.8 % (40-80); PLATELET COUNT 227 10x3/uL (130-400); RBC 4.78 10x6/uL (4.00-5.40); RDW 13.9 % (11.5-14.5); WBC 6.9 10x3/uL (4.8-10.8)
[2018-01-27 15:23] LABS: ALBUMIN 3.6 g/dL (3.4-5.0); ANION GAP 8.8 mmol/L (8-16); BILIRUBIN - TOTAL 0.6 mg/dL (0.2-1.3); CALCIUM 9.3 mg/dL (8.5-10.1); CARBON DIOXIDE 31.6 mmol/L (21.0-32.0); POTASSIUM - SERUM 3.4 mmol/L (3.5-5.1); PROTEIN - SERUM 7.7 g/dL (6.4-8.2)
[2018-01-27 15:52] VITALS: BP 120/65
[2018-01-27 20:00] VITALS: BP 96/47
[2018-01-27 20:49] LABS: APPEARANCE CLEAR (CLEAR); BILIRUBIN NEGATIVE (NEGATIVE); COLOR YELLOW (YELLOW); GLUCOSE NEGATIVE (NEGATIVE); KETONE NEGATIVE (NEGATIVE); NITRITE NEGATIVE (NEGATIVE); PROTEIN NEGATIVE (NEGATIVE); SPECIFIC GRAVITY 1.015 (1.005-1.020); UROBILINOGEN NORMAL (NORMAL)
[2018-01-28] VITALS: BP 110/49
[2018-01-28 03:38] LABS: BASOPHILS 0.2 % (0-2); EOSINOPHILS 0 % (0-7); HEMATOCRIT 38.7 % (36.0-48.0); HEMOGLOBIN 12.6 g/dL (12-16); IMMATURE GRANULOCYTES 1.3 % (0-5); LYMPHOCYTES 9.3 % (15-50); MCH 27.8 pg (26.0-34.0); MCHC 32.6 g/dL (31.0-37.0); MCV 85.4 fL (80.0-100.0); MEAN PLATELET VOLUME 10.3 fL (7.4-10.4); MONOCYTES 2.1 % (2-11); NEUTROPHILS 87.1 % (40-80); PLATELET COUNT 219 10x3/uL (130-400); RBC 4.53 10x6/uL (4.00-5.40); RDW 13.9 % (11.5-14.5); WBC 4.7 10x3/uL (4.8-10.8)
[2018-01-28 04:00] VITALS: BP 142/73
[2018-01-28 04:02] LABS: ALBUMIN 3.1 g/dL (3.4-5.0); ANION GAP 13.5 mmol/L (8-16); BILIRUBIN - TOTAL 0.27 mg/dL (0.2-1.3); CALCIUM 8.9 mg/dL (8.5-10.1); CARBON DIOXIDE 29.7 mmol/L (21.0-32.0); CREATININE - SERUM 1.1 mg/dL (0.6-1.3); POTASSIUM - SERUM 4.2 mmol/L (3.5-5.1); PROTEIN - SERUM 7.3 g/dL (6.4-8.2)
[2018-01-28 07:57] VITALS: BP 118/57
[2018-01-28 11:47] VITALS: BP 138/60
[2018-01-28 14:21] VITALS: Ht 165.1 cm; Wt 91.2 kg
[2018-01-28 15:46] VITALS: BP 108/51
[2018-01-28 20:00] VITALS: BP 113/56
[2018-01-29] VITALS: BP 96/60
[2018-01-29 04:00] VITALS: BP 123/62
[2018-01-29 06:07] LABS: BASOPHILS 0.1 % (0-2); EOSINOPHILS 0 % (0-7); HEMATOCRIT 38.2 % (36.0-48.0); HEMOGLOBIN 12.1 g/dL (12-16); IMMATURE GRANULOCYTES 0.5 % (0-5); MCH 27.3 pg (26.0-34.0); MCHC 31.7 g/dL (31.0-37.0); MCV 86.2 fL (80.0-100.0); MEAN PLATELET VOLUME 10.4 fL (7.4-10.4); NEUTROPHILS 92.4 % (40-80); PLATELET COUNT 213 10x3/uL (130-400); RBC 4.43 10x6/uL (4.00-5.40)
[2018-01-29 06:08] LABS: WBC 9.4 10x3/uL (4.8-10.8)
[2018-01-29 06:36] LABS: ALBUMIN 3.1 g/dL (3.4-5.0); ANION GAP 12.9 mmol/L (8-16); BILIRUBIN - TOTAL 0.2 mg/dL (0.2-1.3); CALCIUM 8.8 mg/dL (8.5-10.1); CARBON DIOXIDE 26.1 mmol/L (21.0-32.0); PROTEIN - SERUM 6.9 g/dL (6.4-8.2)
[2018-01-29 09:04] VITALS: BP 136/63
[2018-01-29 13:23] VITALS: BP 137/58
[2018-01-29 16:58] VITALS: BP 129/62
[2018-01-29 19:36] VITALS: BP 117/64
[2018-01-30] VITALS: BP 138/54
[2018-01-30 04:00] VITALS: BP 118/56
[2018-01-30 06:21] LABS: BASOPHILS 0.1 % (0-2); EOSINOPHILS 0 % (0-7); HEMATOCRIT 38.5 % (36.0-48.0); HEMOGLOBIN 12.3 g/dL (12-16); IMMATURE GRANULOCYTES 0.6 % (0-5); LYMPHOCYTES 10.2 % (15-50); MCH 27.6 pg (26.0-34.0); MCHC 31.9 g/dL (31.0-37.0); MCV 86.5 fL (80.0-100.0); MEAN PLATELET VOLUME 10.6 fL (7.4-10.4); MONOCYTES 5.4 % (2-11); NEUTROPHILS 83.7 % (40-80); PLATELET COUNT 235 10x3/uL (130-400); RBC 4.45 10x6/uL (4.00-5.40); RDW 14.1 % (11.5-14.5)
[2018-01-30 06:44] LABS: ANION GAP 14.4 mmol/L (8-16); CALCIUM 9.1 mg/dL (8.5-10.1); CARBON DIOXIDE 27.6 mmol/L (21.0-32.0); CREATININE - SERUM 1.1 mg/dL (0.6-1.3)
[2018-01-30 08:33] VITALS: BP 124/58
[2018-01-30 11:57] VITALS: BP 88/50
[2018-01-30 17:00] VITALS: BP 125/69
[2018-01-30 19:59] VITALS: BP 182/86
[2018-01-31 04:08] LABS: BASOPHILS 0 % (0-2); EOSINOPHILS 0 % (0-7); HEMATOCRIT 38.7 % (36.0-48.0); HEMOGLOBIN 12.7 g/dL (12-16); IMMATURE GRANULOCYTES 0.7 % (0-5); LYMPHOCYTES 6.3 % (15-50); MCHC 32.8 g/dL (31.0-37.0); MCV 85.4 fL (80.0-100.0); MEAN PLATELET VOLUME 10.5 fL (7.4-10.4); MONOCYTES 3.1 % (2-11); NEUTROPHILS 89.9 % (40-80); PLATELET COUNT 244 10x3/uL (130-400); RBC 4.53 10x6/uL (4.00-5.40); WBC 11.8 10x3/uL (4.8-10.8)
[2018-01-31 04:24] LABS: ANION GAP 14.1 mmol/L (8-16); CALCIUM 8.8 mg/dL (8.5-10.1); CARBON DIOXIDE 28.8 mmol/L (21.0-32.0); POTASSIUM - SERUM 3.9 mmol/L (3.5-5.1)
[2018-01-31 04:30] VITALS: BP 125/55
[2018-01-31 09:08] VITALS: BP 127/62
[2018-01-31 12:45] VITALS: BP 97/64
[2018-01-31 16:29] VITALS: BP 102/53
[2018-01-31 19:50] VITALS: BP 114/49
[2018-01-31 22:22] VITALS: BP 115/52
[2018-02-01 04:42] VITALS: BP 124/54
[2018-02-01 08:17] VITALS: BP 127/55
[2018-02-01 12:35] VITALS: BP 106/56
[2018-02-01] MEDS ORDERED: DOXYCYCLINE HY100 M2 PO (15:44)
[2018-02-01] MEDS ORDERED: STERAPRED DS 1010 MG PO (15:47)
[2018-02-01 15:49] VITALS: BP 116/48
== END 2018-02-01 17:47 | disposition home or self-care (01) | DRG 191 ==
LOC: D.ER 12:15 → EDSTATUS 12:53 → D.MS 13:01
PROVIDERS: Family Medicine
DX: J44.1 Chronic obstructive pulmonary disease with (acute) exacerbation (principal); M35.1 Other overlap syndromes; I50.22 Chronic systolic (congestive) heart failure; J96.11 Chronic respiratory failure with hypoxia; I11.0 Hypertensive heart disease with heart failure; E87.6 Hypokalemia; K21.9 Gastro-esophageal reflux disease without esophagitis; G25.81 Restless legs syndrome; Z99.81 Dependence on supplemental oxygen; E66.9 Obesity, unspecified; Z68.33 Body mass index [BMI] 33.0-33.9, adult

== ENCOUNTER 2018-04-12 12:17 | Inpatient (IN) | payer MEDICARE ==
[~2018-04-12] VITALS: Ht 167.6 cm; Wt 90.9 kg
[~2018-04-12 12:17] MED LIST changes: +AZELASTINE HCL6 ML EACH EYE; +METAMUCIL PACKE1 PKT PO; +MUCOMYST 20200 MG/M2 INH; +PROBIOTIC250 MG PO; +REQUIP1 MG PO; +SALINE NASAL SP45 ML NS; +STERAPRED DS 1010 MG PO; +VITAMIN D5000 UNIT PO; +VITAMIN E400 UNI2 PO
[2018-04-12 13:35] LABS: BASOPHILS 0.3 % (0-2); EOSINOPHILS 1.2 % (0-7); HEMOGLOBIN 13.7 g/dL (12-16); IMMATURE GRANULOCYTES 0.4 % (0-5); LYMPHOCYTES 15.4 % (15-50); MCH 27.2 pg (26.0-34.0); MCHC 32.6 g/dL (31.0-37.0); MCV 83.3 fL (80.0-100.0); MEAN PLATELET VOLUME 10.6 fL (7.4-10.4); MONOCYTES 5.9 % (2-11); NEUTROPHILS 76.8 % (40-80); PLATELET COUNT 265 10x3/uL (130-400); RBC 5.04 10x6/uL (4.00-5.40); RDW 14.5 % (11.5-14.5); WBC 11.1 10x3/uL (4.8-10.8)
[2018-04-12 13:54] LABS: ALBUMIN 3.8 g/dL (3.4-5.0); ANION GAP 10.9 mmol/L (8-16); BILIRUBIN - TOTAL 0.55 mg/dL (0.2-1.3); CALCIUM 9.3 mg/dL (8.5-10.1); CREATININE - SERUM 1.1 mg/dL (0.6-1.3); MAGNESIUM - SERUM 1.8 mg/dL (1.8-2.4); PROTEIN - SERUM 8.1 g/dL (6.4-8.2)
[2018-04-12 13:56] LABS: POTASSIUM - SERUM 2.9 mmol/L (3.5-5.1)
[2018-04-12 15:01] VITALS: BP 108/67; BMI 32.3
[2018-04-12 16:33] VITALS: BP 108/67
[2018-04-12 17:51] VITALS: Ht 167.6 cm; Wt 90.9 kg
[2018-04-12 21:22] VITALS: BP 114/44
[2018-04-13 04:16] VITALS: BP 124/54
[2018-04-13 04:53] LABS: BASOPHILS 0.6 % (0-2); EOSINOPHILS 2.3 % (0-7); HEMATOCRIT 38.9 % (36.0-48.0); HEMOGLOBIN 12.4 g/dL (12-16); IMMATURE GRANULOCYTES 0.3 % (0-5); LYMPHOCYTES 24.8 % (15-50); MCH 26.7 pg (26.0-34.0); MCHC 31.9 g/dL (31.0-37.0); MCV 83.8 fL (80.0-100.0); MEAN PLATELET VOLUME 10.5 fL (7.4-10.4); MONOCYTES 9.3 % (2-11); NEUTROPHILS 62.7 % (40-80); PLATELET COUNT 224 10x3/uL (130-400); RBC 4.64 10x6/uL (4.00-5.40); RDW 14.6 % (11.5-14.5)
[2018-04-13 05:08] LABS: ALBUMIN 3.1 g/dL (3.4-5.0); BILIRUBIN - TOTAL 0.38 mg/dL (0.2-1.3); CALCIUM 8.7 mg/dL (8.5-10.1); CARBON DIOXIDE 32.9 mmol/L (21.0-32.0); CREATININE - SERUM 0.9 mg/dL (0.6-1.3); PROTEIN - SERUM 6.7 g/dL (6.4-8.2)
[2018-04-13 05:20] LABS: ANION GAP 9.9 mmol/L (8-16); POTASSIUM - SERUM 2.8 mmol/L (3.5-5.1)
[2018-04-13 07:26] LABS: APPEARANCE CLEAR (CLEAR); BILIRUBIN NEGATIVE (NEGATIVE); COLOR YELLOW (YELLOW); GLUCOSE NEGATIVE (NEGATIVE); KETONE NEGATIVE (NEGATIVE); NITRITE NEGATIVE (NEGATIVE); PROTEIN NEGATIVE (NEGATIVE); SPECIFIC GRAVITY 1.015 (1.005-1.020); UROBILINOGEN NORMAL (NORMAL)
[2018-04-13 09:42] VITALS: BP 127/50
[2018-04-13 15:09] VITALS: BP 119/47
[2018-04-13 17:29] VITALS: BP 115/43
[2018-04-13 20:35] VITALS: BP 123/56
[2018-04-14 00:31] VITALS: BP 133/59
[2018-04-14 04:42] VITALS: BP 154/64
[2018-04-14 08:28] VITALS: BP 139/61
[2018-04-14 13:35] VITALS: BP 120/52
[2018-04-14 16:42] VITALS: BP 126/57
[2018-04-14 20:36] VITALS: BP 152/55
[2018-04-15 01:08] VITALS: BP 129/58
[2018-04-15 04:56] VITALS: BP 148/67
[2018-04-15 08:14] LABS: ANION GAP 13.2 mmol/L (8-16); CALCIUM 8.7 mg/dL (8.5-10.1); CARBON DIOXIDE 25.5 mmol/L (21.0-32.0); CREATININE - SERUM 0.8 mg/dL (0.6-1.3); POTASSIUM - SERUM 3.7 mmol/L (3.5-5.1)
[2018-04-15 08:46] VITALS: BP 121/45
[2018-04-15 11:53] VITALS: BP 149/63
[2018-04-15 20:18] VITALS: BP 146/62
[2018-04-16 00:01] VITALS: BP 135/65
[2018-04-16 04:16] VITALS: BP 140/52
[2018-04-16 05:19] LABS: ANION GAP 11.1 mmol/L (8-16); CALCIUM 8.3 mg/dL (8.5-10.1); CARBON DIOXIDE 23.2 mmol/L (21.0-32.0); CREATININE - SERUM 0.8 mg/dL (0.6-1.3); PHOSPHOROUS 2.8 mg/dL (2.5-4.9)
[2018-04-16 05:24] LABS: POTASSIUM - SERUM 4.3 mmol/L (3.5-5.1)
[2018-04-16 10:32] VITALS: BP 137/75
[2018-04-16 14:33] VITALS: BP 132/44
[2018-04-16 19:11] VITALS: BP 166/58
[2018-04-16 20:16] VITALS: BP 116/67
[2018-04-17 01:11] VITALS: BP 120/48
[2018-04-17 03:50] LABS: BASOPHILS 0.1 % (0-2); EOSINOPHILS 0.1 % (0-7); HEMATOCRIT 38.5 % (36.0-48.0); IMMATURE GRANULOCYTES 0.4 % (0-5); LYMPHOCYTES 14.1 % (15-50); MCH 26.4 pg (26.0-34.0); MCHC 31.2 g/dL (31.0-37.0); MCV 84.8 fL (80.0-100.0); MEAN PLATELET VOLUME 10.6 fL (7.4-10.4); MONOCYTES 6.7 % (2-11); NEUTROPHILS 78.6 % (40-80); PLATELET COUNT 200 10x3/uL (130-400); RBC 4.54 10x6/uL (4.00-5.40); WBC 10.5 10x3/uL (4.8-10.8)
[2018-04-17 03:57] LABS: PROTIME 12.8 SECONDS (11.6-15.0)
[2018-04-17 04:30] VITALS: BP 124/54
[2018-04-17 09:37] VITALS: BP 132/58
[2018-04-17] MEDS ORDERED: PREDNISONE10 MG PO (10:26)
[2018-04-18] MEDS ORDERED: METOLAZONE2.5 MG PO (10:18)
== END 2018-04-17 11:42 | disposition home or self-care (01) | DRG 190 ==
LOC: D.SDCHOLD 12:17 → D.MS 12:17
PROVIDERS: Family Medicine; Internal Medicine Pulmonary Disease
DX: J44.0 Chronic obstructive pulmonary disease with (acute) lower respiratory infection (principal); J15.6 Pneumonia due to other Gram-negative bacteria; M35.1 Other overlap syndromes; J96.11 Chronic respiratory failure with hypoxia; J96.12 Chronic respiratory failure with hypercapnia; J44.1 Chronic obstructive pulmonary disease with (acute) exacerbation; R10.9 Unspecified abdominal pain; E78.5 Hyperlipidemia, unspecified; G25.81 Restless legs syndrome; K21.9 Gastro-esophageal reflux disease without esophagitis; I08.1 Rheumatic disorders of both mitral and tricuspid valves; I10 Essential (primary) hypertension; Z95.1 Presence of aortocoronary bypass graft; I73.9 Peripheral vascular disease, unspecified

== ENCOUNTER 2018-04-17 21:09 | Inpatient (IN) | payer MEDICARE ==
[~2018-04-17] VITALS: Ht 167.6 cm; Wt 94.2 kg
--- NOTE | ~2018-04-17 | CN ---
PATIENT NAME:MARIELOS TALAMANTES MEDICAL RECORD: [id number] : 38 LOCATION:D. D.2105 ADMIT DATE: 04/18/18 ACCOUNT: [id number] CONSULTING PHYSICIAN: MATTEO BRIONES REFERRING PHYSICIAN: IRINA AGUILERA DO DATE OF CONSULTATION: 04/18/2018 Pulmonary Consultation HISTORY OF PRESENT ILLNESS: This is a 77-year-old female who was recently discharged. Patient noted shortness of breath, coughing, and swelling of both feet, also chest pains. Since admission, the patient has been having diarrhea secondary to barium from abdominal discomfort, which appears to be burning, but no tenderness. She has had shortness of breath. PAST MEDICAL HISTORY: Remarkable for hypertension, coronary artery disease, COPD on chronic home oxygen supplementation, and has acid reflux. PAST SURGICAL HISTORY: Including gallbladder removal, cataract surgery, hysterectomy, and coronary artery bypass graft surgery. ALLERGIES: INCLUDE FLAGYL, AUGMENTIN, IODINE, LEVOFLOXACIN, POLY-HIST. MEDICATIONS: Lasix 40 mg q.12 hours, potassium chloride 10 mEq b.i.d., Protonix 40 mg daily, Pepcid 20 mg b.i.d., Daliresp 500 mcg daily, Singulair 10 mg daily, Requip 2 mg t.i.d., aspirin 81 mg daily, metoprolol 50 mg daily, nystatin suspension 5 mL b.i.d., methylprednisolone 80 mg q.6 hours, and DuoNeb every 4 hours. SOCIAL HISTORY: The patient is a former cigarette smoker. He does not use alcohol or recreational drugs. REVIEW OF SYSTEMS: CONSTITUTIONAL: The patient denies any fever, chills, weight loss. SHEENT: There is no headache, nasal drainage, or sore throat. CARDIOPULMONARY: The patient denies any orthopnea or PND. He has also had chest pains with no radiation. GASTROINTESTINAL: There is no nausea, vomiting. There is abdominal pain in the mid abdomen. MUSCULOSKELETAL: There are no joint pains. GENITOURINARY: There is no frequency or dysuria. PHYSICAL EXAMINATION: GENERAL: Reveals an elderly female, appears to be uncomfortable and acutely ill. VITAL SIGNS: Temperature 97.9, heart rate of 79, respiratory rate of 18, blood pressure 125/54, saturations 92%. SHEENT: Unremarkable. The patient is normocephalic. Pupils are equal and reactive. Nares are normal as well as oral cavity is normal. NECK: Supple. There is adenopathy. Trachea is midline. There is no thyromegaly. CHEST: Shows some mild crackles on coughing. There is no accessory muscle use. There is no chest wall tenderness. HEART: Showed no jugular venous distention. No murmur or gallops. ABDOMEN: Shows no tenderness, distention or masses. CONSULT REPORT [id number] MARIELOS TALAMANTES EXTREMITIES: There is no clubbing, cyanosis. There are 2-3+ pitting edema bilaterally. LABORATORY DATA: White count 10.5, hemoglobin 12.5, platelet count 225,000. Chemistries remarkable for potassium 3.6, creatinine is 1.1. A V/Q lung scan is intermediate probability. Chest x-ray showed mild congestive changes. Abdominal exam showed no acute abdominal abnormality. There is right middle lobe and lower lobe interstitial nodularity. There is diverticulosis with no evidence of inflammation. IMPRESSION: 1. Acute congestive heart failure, probably secondary to volume overload. 2. Coronary artery disease. 3. Chronic obstructive pulmonary disease exacerbation. 4. Diarrhea secondary to barium. PLAN: 1. Diuresis. 2. Bronchodilators. 3. Continue Protonix. 4. DVT prophylaxis. TOTAL TIME: 50 minutes. TRANSINT:[id number] Voice Confirmation ID: [id number] DOCUMENT ID: [id number] MATTEO BRIONES at 1506 CC: [id number] DICTATION DATE: 04/18/181747 CELL TENDER HELPER: 04/18/18 225 [place] [address]
--- NOTE | ~2018-04-17 | PN ---
PATIENT:MARIELOS TALAMANTES MEDICAL RECORD: [id number] LOCATION:D. D.210 ADMISSION DATE: 04/19/18 PROGRESS NOTE DATE OF SERVICE: 04/19/2018 SUBJECTIVE: This is a 77-year-old female who was admitted with abdominal pain and shortness of breath. The patient has had a chronic interstitial lung disease, has been short of breath, coughing up phlegm. The patient has been treated with bronchodilators, systemic steroids. The patient complains of short of breath today. There is no abdominal pain, has been seen by GI and will have EGD. She is not having diarrhea, no abdominal pain. There is no fever or chills. PHYSICAL EXAMINATION: GENERAL: Reveals an elderly female who is in no acute distress. VITAL SIGNS: Temperature 98.1, heart rate 83, respiratory rate of 18, blood pressure 136/54, saturation 94. SHEENT: Unremarkable. HEENT: The patient is normocephalic. Pupils are equal and reactive. NECK: Supple. There is no adenopathy. Trachea is midline. There is no thyromegaly. CHEST: Showed mild coarse crackles bilaterally. There are no wheezes. HEART: Shows no jugular venous distention. No murmur or gallops. ABDOMEN: Exam is benign. There is no tenderness. There are no masses. There is no distention. EXTREMITIES: No clubbing, cyanosis or edema. LABORATORY DATA: Showed white count of 6.2, hemoglobin 11.4, platelet count is 211,000. Chemistry is remarkable for BUN of 15, creatinine is 0.9. Carbon dioxide is 31. Chest x-ray showed stable mild to moderate chronic interstitial lung disease. ASSESSMENT: 1. Chronic interstitial lung disease, etiology to be determined. 2. Abdominal pain, diarrhea. The patient will have EGD. 3. Acute bronchitis. PLAN: 1. Continue bronchodilators. 2. Mucinex for mucolytics. 3. Continue antibiotics. 4. Deep venous thrombosis prophylaxis. TRANSINT:[id number] Voice Confirmation ID: [id number] DOCUMENT ID: [id number] PROGRESS NOTE [id number] MARIELOS TALAMANTES MATTEO BRIONES at 9082 CC: [id number] DICTATION DATE: 04/19/18 172 MECHANICAL FITTER: 04/19/185 ADM IN [facility] [address] [place] [id number]
--- NOTE | ~2018-04-17 | PN ---
PATIENT:MARIELOS TALAMANTES MEDICAL RECORD: [id number] LOCATION:D.M2 D.210 ADMISSION DATE: 04/19/18 PROGRESS NOTE DATE OF SERVICE: 04/20/2018 SUBJECTIVE: A 77-year-old female who has had history of chronic obstructive pulmonary disease. The patient presented with abdominal pain. The patient has been taking Aleve and Motrin on and off for knee pain and some leg spasms. The patient noted epigastric pain. There was no nausea or vomiting. There was no blood vomiting. The patient has also noted increasing shortness of breath with coughing up yellow-green sputum. The patient had EGD today and was noted to have 2 gastric ulcers. She has been treated with Protonix and abdomen is feeling better. She has been advised against nonsteroidal anti-inflammatory agents. PHYSICAL EXAMINATION: GENERAL: Reveals an elderly female who is in no acute distress. VITAL SIGNS: Temperature 98.1, heart rate 98, respiratory rate 20, blood pressure 118/34, saturation is 91%. SHEENT: Unremarkable. Nares are normal and moist. NECK: Supple. There is no adenopathy. Trachea is midline. There is no stridor. There is no thyromegaly. CHEST: Shows mild crackles on deep cough. No wheezes noted. No chest wall tenderness. No erythema seen. HEART: Shows no jugular venous distention, murmur, or gallop. ABDOMEN: Benign without any tenderness. EXTREMITIES: No clubbing, cyanosis, or edema. LABORATORY DATA: Lab exam showed white count 8.9, hemoglobin 12.5, and platelet count is 248,000. Chemistry shows creatinine of 1.1 and BUN is 21. DIAGNOSTIC DATA: Chest x-ray showed no acute disease. ASSESSMENT: 1. Acute exacerbation of chronic obstructive pulmonary disease. 2. Gastric ulceration. The patient is being treated with Protonix. She has been advised to avoid nonsteroidal antiinflammatory agents. May use tramadol for pain. PLAN: 1. Change Solu-Medrol to oral prednisone. 2. Continue bronchodilators. The patient can be discharged as planned. The patient expects to go home tomorrow. TRANSINT:[id number] Voice Confirmation ID: [id number] DOCUMENT ID: [id number] PROGRESS NOTE [id number] MARIELOS TALAMANTES MATTEO WALKER at 1241 CC: [id number] DICTATION DATE: 04/20/18 1622 COMPUTER INFORMATION SCIENCE PROFESSOR: 04/20/18 193 ADM IN [place] [id number] [place] [id number]
--- NOTE | ~2018-04-17 | DS ---
PATIENT:MARIELOS TALAMANTES :38 MEDICAL RECORD: [id number] DISCHARGE SUMMARY ADMISSION DATE: 04/19/18 DISCHARGE DATE: 04/23/18 DATE OF ADMISSION: 04/19/2018. DATE OF DISCHARGE: 04/23/2018. CONDITION ON DISCHARGE: Improved. ADMITTING DIAGNOSES: Chest pain, chronic obstructive pulmonary disease exacerbation, shortness of breath, abdominal pain, candidiasis. DISCHARGE DIAGNOSES: Shortness of breath, gastroesophageal reflux, chronic obstructive pulmonary disease exacerbation, colitis, bronchitis, arteriosclerotic heart disease, diaphragmatic hernia. HOSPITAL COURSE: A 77-year-old female, who presented complaining of shortness of breath. The patient had been readmitted after being discharged the day prior to her admission for COPD exacerbation. The patient felt extreme tightness across her chest, upper abdomen. On physical examination, the patient was somewhat tachycardic. Her temperature was 99.7, her pulse was 111, respirations 22, blood pressure 155/66, O2 sat was 92% on room air. Glucose 158, negative cardiac enzymes. White count 10.5, hemoglobin 12.5, hematocrit 38.8, her platelets were 225. Her HEENT was unremarkable. She had expiratory wheezes and bibasilar rales. The patient had a chest x-ray. The chest x-ray revealed mild congestive changes. She also had a VQ scan. It was felt that there was an indeterminate probability for pulmonary embolus. The patient had been placed on acetylcholine t.i.d. as well as updraft therapy, IV steroids, albuterol, Atrovent updrafts, IV Lasix. The patient's condition slowly began to improve. She had a icmy-kh-qhxozbbp chronic interstitial lung disease. Breathing improved. On the , a chest x-ray showed no acute disease as noted. The patient wished to be discharged on the . Her white count was 8.6, hemoglobin 11.8, hematocrit was 37.9, and platelets were 230. Sodium was 137, potassium 4.2, chloride was 100, CO2 was 31.3, her BUN was 23, creatinine 1.1. The patient was discharged. She was discharged on nystatin oral suspension 5 cc swish and swallow q.i.d., Carafate 1 g q.a.c. and q.h.s. She would continue Combivent inhaler 2 puffs q.4 hours p.r.n. shortness of breath as well as DuoNeb updrafts q.4 hours p.r.n. shortness of breath, Singulair 10 mg once a day, Protonix 40 mg p.o. b.i.d., Advair Diskus 500/50 one puff b.i.d., metoprolol tartrate 50 mg every day, Daliresp 500 mg p.o. every day, aspirin 81 mg once a day, magnesium oxide 400 mg p.o. b.i.d., Mucinex 600 mg p.o. b.i.d., ranitidine 150 mg p.o. b.i.d., KCl 10 mEq b.i.d., Lasix 40 mg once a day, Requip 2 mg p.o. t.i.d., hydrochlorothiazide 12.5 mg once a day, Mucomyst t.i.d. updrafts solution, vitamin E 400 units p.o. every day, saline nasal spray q.2 hours p.r.n. dryness, fluticasone nasal spray 1 squirt b.i.d., Astelin HC 0.05% eyedrops 1 drop in each eye b.i.d., probiotic 250 mg tablet once a day, Metamucil 3.4 gram packet 1 p.o. every day, prednisone 10 mg 4 tablets once a day for 3 days, decreasing to 30 mg for 3 days, 20 mg for 3 days, 10 mg for 3 days, metolazone 2.5 mg daily, Metformin 500 mg daily. DIET: 2200 calorie ADA diet. She would be on 2 liters nasal cannula. DISCHARGE SUMMARY REPORT [id number] MAREILOS TALAMANTES ACTIVITIES: Ad gabriella. FOLLOWUP: She will follow up with Dr. Coy in 1 week. TRANSINT:[id number] Voice Confirmation ID: [id number] DOCUMENT ID: [id number] OUMOU KARIMI MD CC: [id number] DICTATION DATE: 05/22/18 1155 WATER TREATMENT PLANT ENGINEER: 05/22/18 1221 DIS IN 04/23/18 [place] [id number] [place] [address]
[2018-04-17 22:00] LABS: BASOPHILS 0 % (0-2); EOSINOPHILS 0 % (0-7); HEMATOCRIT 38.8 % (36.0-48.0); HEMOGLOBIN 12.5 g/dL (12-16); IMMATURE GRANULOCYTES 0.5 % (0-5); LYMPHOCYTES 9.9 % (15-50); MCH 26.9 pg (26.0-34.0); MCHC 32.2 g/dL (31.0-37.0); MCV 83.4 fL (80.0-100.0); MEAN PLATELET VOLUME 10.5 fL (7.4-10.4); MONOCYTES 7.5 % (2-11); NEUTROPHILS 82.1 % (40-80); PLATELET COUNT 225 10x3/uL (130-400); RBC 4.65 10x6/uL (4.00-5.40); WBC 10.5 10x3/uL (4.8-10.8)
[2018-04-17 22:22] LABS: ALBUMIN 3.1 g/dL (3.4-5.0); ALKALINE PHOSPHATASE 78 U/L (46-116); ALT (SGPT) 24 U/L (10-68); BILIRUBIN - TOTAL 0.31 mg/dL (0.2-1.3); CALCIUM 8.2 mg/dL (8.5-10.1); CHLORIDE - SERUM 106 mmol/L (98-107); PROTEIN - SERUM 7.1 g/dL (6.4-8.2); SODIUM 143 mmol/L (136-145); UREA NITROGEN 15 mg/dL (7-18)
[2018-04-17 22:24] LABS: CALC OSMOLALITY 288 mosm/kg (275-300); CARBON DIOXIDE 31.6 mmol/L (21.0-32.0); CREATININE - SERUM 1.1 mg/dL (0.6-1.3); GLUCOSE 158 mg/dL (74-106); POTASSIUM - SERUM 3.6 mmol/L (3.5-5.1); eGFR NON AFRICAN AMERICAN 51 mL/min (90-120)
[2018-04-17 22:25] LABS: CKMB 3.1 U/L (0.0-3.6); CREATINE KINASE 142 UL (21-215); TROPONIN-I < 0.017 ng/mL (0.000-0.060)
[2018-04-17 22:44] VITALS: BP 133/54
[2018-04-18 02:13] VITALS: BP 118/45
[2018-04-18 04:16] VITALS: BMI 32.5
[2018-04-18 07:59] VITALS: BP 136/61
[2018-04-18 09:07] VITALS: Ht 167.6 cm; Wt 94.2 kg
[2018-04-18] MEDS ORDERED: METOLAZONE2.5 MG PO (10:18)
[2018-04-18 10:52] LABS: CKMB 2.3 U/L (0.0-3.6); CREATINE KINASE 134 UL (21-215)
[2018-04-18 10:54] LABS: TROPONIN-I < 0.017 ng/mL (0.000-0.060)
[2018-04-18 11:59] VITALS: BP 131/50
[2018-04-18 15:59] VITALS: BP 125/54
[2018-04-18 16:50] LABS: CKMB 2.3 U/L (0.0-3.6); CREATINE KINASE 158 UL (21-215); TROPONIN-I < 0.017 ng/mL (0.000-0.060)
[2018-04-18 20:00] VITALS: BP 130/58
[2018-04-18 23:21] LABS: CKMB 1.9 U/L (0.0-3.6); CREATINE KINASE 191 UL (21-215); TROPONIN-I < 0.017 ng/mL (0.000-0.060)
[2018-04-19 04:17] VITALS: BP 105/69
[2018-04-19 05:53] LABS: BASOPHILS 0.2 % (0-2); EOSINOPHILS 0 % (0-7); HEMATOCRIT 35.9 % (36.0-48.0); HEMOGLOBIN 11.4 g/dL (12-16); IMMATURE GRANULOCYTES 0.3 % (0-5); LYMPHOCYTES 5.5 % (15-50); MCH 26.4 pg (26.0-34.0); MCHC 31.8 g/dL (31.0-37.0); MCV 83.1 fL (80.0-100.0); MEAN PLATELET VOLUME 10.7 fL (7.4-10.4); MONOCYTES 3.2 % (2-11); NEUTROPHILS 90.8 % (40-80); PLATELET COUNT 211 10x3/uL (130-400); RBC 4.32 10x6/uL (4.00-5.40); RDW 14.7 % (11.5-14.5)
[2018-04-19 06:21] LABS: WBC 6.2 10x3/uL (4.8-10.8)
[2018-04-19 06:23] LABS: ALBUMIN 2.7 g/dL (3.4-5.0); ANION GAP 10.8 mmol/L (8-16); BILIRUBIN - TOTAL 0.36 mg/dL (0.2-1.3); CALCIUM 7.9 mg/dL (8.5-10.1); CARBON DIOXIDE 30.7 mmol/L (21.0-32.0); CREATININE - SERUM 0.9 mg/dL (0.6-1.3); MAGNESIUM - SERUM 2.1 mg/dL (1.8-2.4); POTASSIUM - SERUM 3.5 mmol/L (3.5-5.1); PROTEIN - SERUM 6.4 g/dL (6.4-8.2)
[2018-04-19 08:13] VITALS: BP 113/62
[2018-04-19 11:35] VITALS: BP 137/64
[2018-04-19 16:32] VITALS: BP 126/54
[2018-04-19 21:04] VITALS: BP 116/45
[2018-04-20 00:31] VITALS: BP 108/44
[2018-04-20 04:21] LABS: BASOPHILS 0 % (0-2); EOSINOPHILS 0 % (0-7); HEMATOCRIT 39.3 % (36.0-48.0); HEMOGLOBIN 12.5 g/dL (12-16); IMMATURE GRANULOCYTES 0.1 % (0-5); LYMPHOCYTES 7.7 % (15-50); MCH 26.8 pg (26.0-34.0); MCHC 31.8 g/dL (31.0-37.0); MCV 84.2 fL (80.0-100.0); MEAN PLATELET VOLUME 10.6 fL (7.4-10.4); MONOCYTES 3.8 % (2-11); NEUTROPHILS 88.4 % (40-80); PLATELET COUNT 248 10x3/uL (130-400); RBC 4.67 10x6/uL (4.00-5.40); RDW 14.4 % (11.5-14.5)
[2018-04-20 04:33] LABS: WBC 8.9 10x3/uL (4.8-10.8)
[2018-04-20 04:48] LABS: ALBUMIN 3.2 g/dL (3.4-5.0); ANION GAP 11.1 mmol/L (8-16); BILIRUBIN - TOTAL 0.39 mg/dL (0.2-1.3); CALCIUM 8.4 mg/dL (8.5-10.1); CARBON DIOXIDE 32.7 mmol/L (21.0-32.0); CREATININE - SERUM 1.1 mg/dL (0.6-1.3); MAGNESIUM - SERUM 2.3 mg/dL (1.8-2.4); POTASSIUM - SERUM 3.8 mmol/L (3.5-5.1); PROTEIN - SERUM 7.4 g/dL (6.4-8.2)
[2018-04-20 05:33] VITALS: BP 152/65
[2018-04-20 07:43] VITALS: BP 137/57
[2018-04-20 15:37] VITALS: BP 110/34
[2018-04-20 16:08] VITALS: BP 113/63
[2018-04-20 20:26] VITALS: BP 117/40
[2018-04-21 00:14] VITALS: BP 117/54
[2018-04-21 04:30] VITALS: BP 131/63
[2018-04-21 07:46] VITALS: BP 144/64
[2018-04-21 11:52] VITALS: BP 131/51
[2018-04-21 16:00] VITALS: BP 115/51
[2018-04-21 21:01] VITALS: BP 119/45
[2018-04-22 00:58] VITALS: BP 123/54
[2018-04-22 05:46] VITALS: BP 133/56
[2018-04-22 08:22] VITALS: BP 133/66
[2018-04-22 11:04] VITALS: BP 119/60
[2018-04-22 14:31] VITALS: BP 131/58
[2018-04-22 20:54] VITALS: BP 118/56
[2018-04-23 01:12] VITALS: BP 120/50
[2018-04-23 05:42] LABS: BASOPHILS 0.1 % (0-2); EOSINOPHILS 0.8 % (0-7); HEMATOCRIT 37.9 % (36.0-48.0); HEMOGLOBIN 11.8 g/dL (12-16); IMMATURE GRANULOCYTES 1.2 % (0-5); LYMPHOCYTES 9.6 % (15-50); MCH 26.3 pg (26.0-34.0); MCHC 31.1 g/dL (31.0-37.0); MCV 84.6 fL (80.0-100.0); MEAN PLATELET VOLUME 10.6 fL (7.4-10.4); MONOCYTES 5.8 % (2-11); NEUTROPHILS 82.5 % (40-80); PLATELET COUNT 230 10x3/uL (130-400); RBC 4.48 10x6/uL (4.00-5.40); RDW 14.4 % (11.5-14.5); WBC 8.6 10x3/uL (4.8-10.8)
[2018-04-23 05:57] VITALS: BP 140/50
[2018-04-23 06:14] LABS: ALBUMIN 2.8 g/dL (3.4-5.0); ANION GAP 9.9 mmol/L (8-16); BILIRUBIN - TOTAL 0.23 mg/dL (0.2-1.3); CALCIUM 8.2 mg/dL (8.5-10.1); CARBON DIOXIDE 31.3 mmol/L (21.0-32.0); CREATININE - SERUM 1.1 mg/dL (0.6-1.3); POTASSIUM - SERUM 4.2 mmol/L (3.5-5.1); PROTEIN - SERUM 6.4 g/dL (6.4-8.2)
[2018-04-23 08:58] VITALS: BP 136/65
[2018-04-23] MEDS ORDERED: NYSTATIN ORAL SU5 ML PO (10:55)
[2018-04-23] MEDS ORDERED: CARAFATE1 G/10 ML PO (10:57)
[2018-04-23] MEDS ORDERED: GLUCOPHAGE500 MG (11:02)
== END 2018-04-23 15:15 | disposition home or self-care (01) | DRG 391 ==
LOC: D.ER 21:09 → D.M2 04-18 03:18 → OBSVTIME 04-18 03:18 → D.M2 04-18 03:18
PROVIDERS: Family Medicine
PROC: 0DB78ZX Excision of Stomach, Pylorus, Via Natural or Artificial Opening Endoscopic, Diagnostic (ICD-10-PCS; principal; 2018-04-21)
DX: K21.0 Gastro-esophageal reflux disease with esophagitis (principal); I50.31 Acute diastolic (congestive) heart failure; J44.0 Chronic obstructive pulmonary disease with (acute) lower respiratory infection; B37.49 Other urogenital candidiasis; J84.9 Interstitial pulmonary disease, unspecified; K52.1 Toxic gastroenteritis and colitis; J44.1 Chronic obstructive pulmonary disease with (acute) exacerbation; J20.9 Acute bronchitis, unspecified; I11.0 Hypertensive heart disease with heart failure; I25.10 Atherosclerotic heart disease of native coronary artery without angina pectoris; K31.84 Gastroparesis; K57.90 Diverticulosis of intestine, part unspecified, without perforation or abscess without bleeding; Z87.891 Personal history of nicotine dependence; T50.8X5A Adverse effect of diagnostic agents, initial encounter; K29.00 Acute gastritis without bleeding; K44.9 Diaphragmatic hernia without obstruction or gangrene

== ENCOUNTER 2018-05-12 09:09 | Inpatient (IN) | payer MEDICARE ==
[~2018-05-12] VITALS: Ht 167.6 cm; Wt 92.0 kg
[~2018-05-12 09:09] MED LIST changes: +CARAFATE1 G/10 ML PO; +GLUCOPHAGE500 MG; +METOLAZONE2.5 MG PO
[2018-05-12 10:28] VITALS: BP 100/49; BMI 32.5
[2018-05-12 10:33] LABS: BASOPHILS 0.2 % (0-2); EOSINOPHILS 0.6 % (0-7); HEMATOCRIT 39.3 % (36.0-48.0); HEMOGLOBIN 12.9 g/dL (12-16); IMMATURE GRANULOCYTES 0.4 % (0-5); LYMPHOCYTES 7.8 % (15-50); MCHC 32.8 g/dL (31.0-37.0); MCV 82.2 fL (80.0-100.0); MEAN PLATELET VOLUME 9.8 fL (7.4-10.4); MONOCYTES 4.5 % (2-11); NEUTROPHILS 86.5 % (40-80); PLATELET COUNT 203 10x3/uL (130-400); RBC 4.78 10x6/uL (4.00-5.40); RDW 14.7 % (11.5-14.5); WBC 11.2 10x3/uL (4.8-10.8)
[2018-05-12 10:47] LABS: ALBUMIN 3.4 g/dL (3.4-5.0); ANION GAP 13.5 mmol/L (8-16); BILIRUBIN - TOTAL 0.63 mg/dL (0.2-1.3); CALCIUM 8.8 mg/dL (8.5-10.1); CARBON DIOXIDE 30.7 mmol/L (21.0-32.0); CREATININE - SERUM 0.9 mg/dL (0.6-1.3); POTASSIUM - SERUM 3.2 mmol/L (3.5-5.1); PROTEIN - SERUM 6.9 g/dL (6.4-8.2)
[2018-05-12 12:29] VITALS: BP 100/49
[2018-05-12 13:14] LABS: APPEARANCE CLEAR (CLEAR); BACTERIA FEW /hpf (NONE SEEN); BILIRUBIN NEGATIVE (NEGATIVE); COLOR YELLOW (YELLOW); EPITHELIAL CELLS 0-5 /hpf (0-5); GLUCOSE NEGATIVE (NEGATIVE); KETONE NEGATIVE (NEGATIVE); NITRITE NEGATIVE (NEGATIVE); PROTEIN NEGATIVE (NEGATIVE); RED CELLS - URINE 0-5 /hpf (0-5); UROBILINOGEN NORMAL (NORMAL); WHITE CELLS - URINE RARE /hpf (0-5)
[2018-05-12 13:15] LABS: MUCUS <1+ /lpf (NONE SEEN)
[2018-05-12 14:03] VITALS: Ht 167.6 cm; Wt 92.0 kg
[2018-05-12 17:35] VITALS: BP 130/81
[2018-05-12 21:16] VITALS: BP 119/69
[2018-05-13 05:17] LABS: BASOPHILS 0 % (0-2); EOSINOPHILS 0 % (0-7); HEMATOCRIT 36.7 % (36.0-48.0); HEMOGLOBIN 12.1 g/dL (12-16); IMMATURE GRANULOCYTES 0.3 % (0-5); LYMPHOCYTES 5.2 % (15-50); MCH 26.8 pg (26.0-34.0); MCV 81.4 fL (80.0-100.0); MEAN PLATELET VOLUME 9.7 fL (7.4-10.4); MONOCYTES 1.7 % (2-11); NEUTROPHILS 92.8 % (40-80); PLATELET COUNT 177 10x3/uL (130-400); RBC 4.51 10x6/uL (4.00-5.40); RDW 14.5 % (11.5-14.5)
[2018-05-13 05:22] LABS: WBC 7.4 10x3/uL (4.8-10.8)
[2018-05-13 05:50] LABS: ALBUMIN 2.8 g/dL (3.4-5.0); ANION GAP 13.3 mmol/L (8-16); BILIRUBIN - TOTAL 0.27 mg/dL (0.2-1.3); CALCIUM 8.4 mg/dL (8.5-10.1); CARBON DIOXIDE 27.7 mmol/L (21.0-32.0); CREATININE - SERUM 1.1 mg/dL (0.6-1.3); PROTEIN - SERUM 6.6 g/dL (6.4-8.2)
[2018-05-13 05:52] VITALS: BP 136/59
[2018-05-13 07:59] VITALS: BP 152/57
[2018-05-13 11:03] VITALS: BP 134/62
[2018-05-13 15:12] VITALS: BP 142/64
[2018-05-13 22:45] VITALS: BP 134/63
[2018-05-14 00:59] VITALS: BP 118/61
[2018-05-14 05:24] LABS: BASOPHILS 0 % (0-2); EOSINOPHILS 0.1 % (0-7); HEMOGLOBIN 11.7 g/dL (12-16); IMMATURE GRANULOCYTES 0.3 % (0-5); LYMPHOCYTES 4.9 % (15-50); MCH 26.9 pg (26.0-34.0); MCHC 32.5 g/dL (31.0-37.0); MCV 82.8 fL (80.0-100.0); MEAN PLATELET VOLUME 10.4 fL (7.4-10.4); MONOCYTES 3.9 % (2-11); NEUTROPHILS 90.8 % (40-80); PLATELET COUNT 178 10x3/uL (130-400); RBC 4.35 10x6/uL (4.00-5.40); RDW 14.9 % (11.5-14.5); WBC 11.5 10x3/uL (4.8-10.8)
[2018-05-14 05:36] LABS: ALBUMIN 2.7 g/dL (3.4-5.0); BILIRUBIN - TOTAL 0.18 mg/dL (0.2-1.3); CARBON DIOXIDE 25.7 mmol/L (21.0-32.0); POTASSIUM - SERUM 3.7 mmol/L (3.5-5.1); PROTEIN - SERUM 6.3 g/dL (6.4-8.2)
[2018-05-14 06:43] VITALS: BP 136/6
[2018-05-14 07:57] VITALS: BP 139/61
[2018-05-14 15:12] VITALS: BP 126/58
[2018-05-14 20:30] VITALS: BP 130/57
[2018-05-15 05:36] LABS: BASOPHILS 0 % (0-2); EOSINOPHILS 0 % (0-7); HEMATOCRIT 36.8 % (36.0-48.0); HEMOGLOBIN 11.7 g/dL (12-16); IMMATURE GRANULOCYTES 0.6 % (0-5); LYMPHOCYTES 4.9 % (15-50); MCH 26.4 pg (26.0-34.0); MCHC 31.8 g/dL (31.0-37.0); MCV 83.1 fL (80.0-100.0); MEAN PLATELET VOLUME 10.1 fL (7.4-10.4); MONOCYTES 3.6 % (2-11); NEUTROPHILS 90.9 % (40-80); PLATELET COUNT 195 10x3/uL (130-400); RBC 4.43 10x6/uL (4.00-5.40); RDW 15.1 % (11.5-14.5); WBC 10.4 10x3/uL (4.8-10.8)
[2018-05-15 06:08] LABS: ALBUMIN 2.7 g/dL (3.4-5.0); ANION GAP 11.6 mmol/L (8-16); BILIRUBIN - TOTAL 0.15 mg/dL (0.2-1.3); CALCIUM 8.2 mg/dL (8.5-10.1); CARBON DIOXIDE 28.6 mmol/L (21.0-32.0); CREATININE - SERUM 1.1 mg/dL (0.6-1.3); POTASSIUM - SERUM 4.2 mmol/L (3.5-5.1); PROTEIN - SERUM 6.3 g/dL (6.4-8.2)
[2018-05-15 08:20] VITALS: BP 129/61
[2018-05-15 11:36] VITALS: BP 125/53
[2018-05-15 16:19] VITALS: BP 124/64
[2018-05-15 23:17] VITALS: BP 140/62
[2018-05-16 05:09] LABS: BASOPHILS 0.1 % (0-2); EOSINOPHILS 0.1 % (0-7); HEMATOCRIT 37.2 % (36.0-48.0); HEMOGLOBIN 11.9 g/dL (12-16); IMMATURE GRANULOCYTES 1.3 % (0-5); LYMPHOCYTES 8.3 % (15-50); MCH 26.7 pg (26.0-34.0); MCV 83.4 fL (80.0-100.0); MEAN PLATELET VOLUME 10.3 fL (7.4-10.4); MONOCYTES 3.8 % (2-11); NEUTROPHILS 86.4 % (40-80); PLATELET COUNT 211 10x3/uL (130-400); RBC 4.46 10x6/uL (4.00-5.40); RDW 15.1 % (11.5-14.5); WBC 8.4 10x3/uL (4.8-10.8)
[2018-05-16 05:41] LABS: ALBUMIN 2.8 g/dL (3.4-5.0); ANION GAP 10.5 mmol/L (8-16); BILIRUBIN - TOTAL 0.16 mg/dL (0.2-1.3); CALCIUM 8.3 mg/dL (8.5-10.1); CARBON DIOXIDE 32.6 mmol/L (21.0-32.0); CREATININE - SERUM 1.1 mg/dL (0.6-1.3); POTASSIUM - SERUM 4.1 mmol/L (3.5-5.1); PROTEIN - SERUM 6.5 g/dL (6.4-8.2)
[2018-05-16 06:25] VITALS: BP 122/57
[2018-05-16 08:55] VITALS: BP 126/55
[2018-05-16 12:48] VITALS: BP 123/70
[2018-05-16 15:53] VITALS: BP 123/52
[2018-05-16 21:20] VITALS: BP 119/49
[2018-05-17 05:51] VITALS: BP 130/67
[2018-05-17 06:02] LABS: BASOPHILS 0.2 % (0-2); EOSINOPHILS 0.9 % (0-7); HEMOGLOBIN 11.7 g/dL (12-16); IMMATURE GRANULOCYTES 4.2 % (0-5); LYMPHOCYTES 22.1 % (15-50); MCH 26.7 pg (26.0-34.0); MCHC 31.6 g/dL (31.0-37.0); MCV 84.3 fL (80.0-100.0); MEAN PLATELET VOLUME 10.7 fL (7.4-10.4); MONOCYTES 8.8 % (2-11); NEUTROPHILS 63.8 % (40-80); PLATELET COUNT 211 10x3/uL (130-400); RBC 4.39 10x6/uL (4.00-5.40); RDW 15.1 % (11.5-14.5); WBC 10.1 10x3/uL (4.8-10.8)
[2018-05-17 06:56] LABS: ALBUMIN 2.6 g/dL (3.4-5.0); ANION GAP 10.5 mmol/L (8-16); BILIRUBIN - TOTAL 0.17 mg/dL (0.2-1.3); CALCIUM 8.3 mg/dL (8.5-10.1); CARBON DIOXIDE 34.2 mmol/L (21.0-32.0); CREATININE - SERUM 1.1 mg/dL (0.6-1.3); POTASSIUM - SERUM 3.7 mmol/L (3.5-5.1); PROTEIN - SERUM 5.8 g/dL (6.4-8.2)
[2018-05-17 08:07] VITALS: BP 134/61
[2018-05-17 11:02] VITALS: BP 134/60
[2018-05-17 15:56] VITALS: BP 103/56
[2018-05-17 20:00] VITALS: BP 100/43
[2018-05-18 05:31] LABS: ALBUMIN 2.7 g/dL (3.4-5.0); ANION GAP 13.8 mmol/L (8-16); BILIRUBIN - TOTAL 0.12 mg/dL (0.2-1.3); CALCIUM 8.7 mg/dL (8.5-10.1); CARBON DIOXIDE 32.1 mmol/L (21.0-32.0); POTASSIUM - SERUM 3.9 mmol/L (3.5-5.1)
[2018-05-18 05:32] LABS: BASOPHILS 0.3 % (0-2); EOSINOPHILS 1.6 % (0-7); HEMATOCRIT 39.1 % (36.0-48.0); HEMOGLOBIN 12.5 g/dL (12-16); IMMATURE GRANULOCYTES 8.2 % (0-5); LYMPHOCYTES 26.6 % (15-50); MCH 26.8 pg (26.0-34.0); MCV 83.9 fL (80.0-100.0); MEAN PLATELET VOLUME 10.7 fL (7.4-10.4); MONOCYTES 8.3 % (2-11); PLATELET COUNT 202 10x3/uL (130-400); RBC 4.66 10x6/uL (4.00-5.40); RDW 15.2 % (11.5-14.5); WBC 8.6 10x3/uL (4.8-10.8)
[2018-05-18 07:57] VITALS: BP 125/56
[2018-05-18 11:18] VITALS: BP 135/57
[2018-05-18 15:48] VITALS: BP 117/57
[2018-05-18 20:00] VITALS: BP 119/68
[2018-05-19 04:00] VITALS: BP 126/65
[2018-05-19 08:05] VITALS: BP 120/67
[2018-05-19] MEDS ORDERED: PULMICORT0.5 MG/21 UPD (12:06)
[2018-05-19 12:30] VITALS: BP 134/64
[2018-05-25 14:15] LABS: AEROBE ID Final report (())
== END 2018-05-19 17:00 | disposition home or self-care (01) | DRG 202 ==
LOC: D.M2 09:09
PROVIDERS: Family Medicine; Internal Medicine Pulmonary Disease
DX: J20.9 Acute bronchitis, unspecified (principal); J44.1 Chronic obstructive pulmonary disease with (acute) exacerbation; M35.1 Other overlap syndromes; I50.32 Chronic diastolic (congestive) heart failure; J96.12 Chronic respiratory failure with hypercapnia; J96.11 Chronic respiratory failure with hypoxia; J98.11 Atelectasis; J44.0 Chronic obstructive pulmonary disease with (acute) lower respiratory infection; I34.0 Nonrheumatic mitral (valve) insufficiency; I10 Essential (primary) hypertension; K21.9 Gastro-esophageal reflux disease without esophagitis; K27.9 Peptic ulcer, site unspecified, unspecified as acute or chronic, without hemorrhage or perforation; I11.0 Hypertensive heart disease with heart failure; J30.9 Allergic rhinitis, unspecified; E78.5 Hyperlipidemia, unspecified; G25.81 Restless legs syndrome; I25.10 Atherosclerotic heart disease of native coronary artery without angina pectoris; K31.84 Gastroparesis

== ENCOUNTER → 2018-06-09 07:38 | Outpatient (CLI) | payer MEDICARE ==
[2018-05-12 14:03] VITALS: BMI 32.4
[~2018-06-09 07:38] MED LIST changes: +PULMICORT0.5 MG/21 UPD
== END | disposition home or self-care (01) ==
LOC: D.CT 07:38
DX: R10.31 Right lower quadrant pain (principal)

== ENCOUNTER → 2018-07-05 09:35 | Outpatient (CLI) | payer MEDICARE ==
[2018-05-12 14:03] VITALS: BMI 32.4
[~2018-07-05 09:35] MED LIST changes: +GLYBURIDE2.5 MG PO; +PREDNISONE20 MG PO; +TRELEGY INH
== END | disposition home or self-care (01) ==
LOC: D.RAD 09:35
DX: J15.1 Pneumonia due to Pseudomonas (principal)

== ENCOUNTER 2018-07-19 15:00 | Inpatient (IN) | payer MEDICARE ==
[~2018-07-19] VITALS: Ht 167.6 cm; Wt 92.8 kg
--- NOTE | ~2018-07-19 | MORECARE ---
CASE MANAGEMENT DISCHARGE SUMMARY PATIENT: MARIELOS TALAMANTES UNIT: [id number] ADM DATE: 07/19/18 AGE: 78 : 39 SEX: F ROOM/BED: D.210 AUTHOR: CATHERINE TAYLOR PHYSICIAN: REFERRING PHYSICIAN: ASHU WU MD DATE OF SERVICE: 07/25/18 Discharge Plan Patient Name: MARIELOS TALAMANTES Facility: [facility]:[place] : 1940 Planned Disposition: Home Anticipated Discharge Date: 07/24/18 Discharge Date: 07/24/2018 Expected LOS: 5 Initial Reviewer: [email or web address] Initial Review Date: 07/25/2018 Generated: 07/25/18 9:13 am Patient Name: MARIELOS TALAMANTES Page [id number] at 0814 All edits/amendments must be made on the electronic document DICTATION DATE: 07/25/18812 INSULATION INSTALLER: SAUL 07/25/18812 RPT#: [id number] DC DATE:07/24/18 STATUS: DIS IN [facility] [address] [place] [address] END OF REPORT
[~2018-07-19 15:00] MED LIST changes: -GLYBURIDE2.5 MG PO; -PREDNISONE20 MG PO; -TRELEGY INH
[2018-07-19] MEDS ORDERED: PREDNISONE10 MG PO (15:40)
[2018-07-19] MEDS ORDERED: TRELEGY INH (15:44)
[2018-07-19 16:28] VITALS: BP 141/69
[2018-07-19 17:07] LABS: BASOPHILS 0.4 % (0-2); EOSINOPHILS 0.7 % (0-7); HEMATOCRIT 42.9 % (36.0-48.0); HEMOGLOBIN 14.4 g/dL (12-16); IMMATURE GRANULOCYTES 0.7 % (0-5); LYMPHOCYTES 14.3 % (15-50); MCH 27.4 pg (26.0-34.0); MCHC 33.6 g/dL (31.0-37.0); MCV 81.6 fL (80.0-100.0); MEAN PLATELET VOLUME 10.5 fL (7.4-10.4); MONOCYTES 4.6 % (2-11); NEUTROPHILS 79.3 % (40-80); PLATELET COUNT 158 10x3/uL (130-400); RBC 5.26 10x6/uL (4.00-5.40); RDW 15.1 % (11.5-14.5); WBC 8.5 10x3/uL (4.8-10.8)
[2018-07-19 17:18] LABS: ALBUMIN 3.6 g/dL (3.4-5.0); ANION GAP 11.8 mmol/L (8-16); BILIRUBIN - TOTAL 0.41 mg/dL (0.2-1.3); CALCIUM 9.5 mg/dL (8.5-10.1); CARBON DIOXIDE 30.1 mmol/L (21.0-32.0); MAGNESIUM - SERUM 1.9 mg/dL (1.8-2.4); PROTEIN - SERUM 7.7 g/dL (6.4-8.2)
[2018-07-19 17:26] LABS: POTASSIUM - SERUM 2.9 mmol/L (3.5-5.1)
[2018-07-19 20:30] LABS: APPEARANCE HAZY (CLEAR); COLOR DK YELLOW (YELLOW); GLUCOSE 100 mg/dL (NEGATIVE); NITRITE POSITIVE (NEGATIVE); PROTEIN NEGATIVE (NEGATIVE); SPECIFIC GRAVITY 1.015 (1.005-1.020)
[2018-07-19 20:31] LABS: BACTERIA MANY /hpf (NONE SEEN); BILIRUBIN NEGATIVE (NEGATIVE); EPITHELIAL CELLS 0-5 /hpf (0-5); KETONE NEGATIVE (NEGATIVE); RED CELLS - URINE 0-5 /hpf (0-5); UROBILINOGEN NORMAL (NORMAL)
[2018-07-19 22:10] VITALS: BP 133/54
[2018-07-20] VITALS: BP 107/37
[2018-07-20 04:59] LABS: BASOPHILS 0.7 % (0-2); EOSINOPHILS 1.8 % (0-7); HEMATOCRIT 38.7 % (36.0-48.0); HEMOGLOBIN 12.5 g/dL (12-16); IMMATURE GRANULOCYTES 0.6 % (0-5); LYMPHOCYTES 31.8 % (15-50); MCH 26.7 pg (26.0-34.0); MCHC 32.3 g/dL (31.0-37.0); MCV 82.7 fL (80.0-100.0); MEAN PLATELET VOLUME 10.3 fL (7.4-10.4); NEUTROPHILS 57.1 % (40-80); RBC 4.68 10x6/uL (4.00-5.40); RDW 15.2 % (11.5-14.5); WBC 7.2 10x3/uL (4.8-10.8)
[2018-07-20 05:07] LABS: PLATELET COUNT 222 10x3/uL (130-400)
[2018-07-20 05:16] LABS: ALBUMIN 2.9 g/dL (3.4-5.0); BILIRUBIN - TOTAL 0.38 mg/dL (0.2-1.3); CARBON DIOXIDE 31.8 mmol/L (21.0-32.0); CREATININE - SERUM 1.1 mg/dL (0.6-1.3); PROTEIN - SERUM 6.7 g/dL (6.4-8.2)
[2018-07-20 05:33] LABS: ANION GAP 9.8 mmol/L (8-16)
[2018-07-20 05:53] VITALS: BP 90/42
[2018-07-20 05:54] LABS: POTASSIUM - SERUM 2.6 mmol/L (3.5-5.1)
[2018-07-20 07:55] VITALS: BP 119/73
[2018-07-20 12:43] VITALS: BP 141/69; BMI 32.6
[2018-07-20 12:52] VITALS: BP 108/53
[2018-07-20 14:59] VITALS: Ht 167.6 cm; Wt 92.8 kg
[2018-07-20 17:47] VITALS: BP 101/64
[2018-07-21] VITALS: BP 111/50
[2018-07-21 01:05] VITALS: BP 116/52
[2018-07-21 04:00] VITALS: BP 108/44
[2018-07-21 07:06] LABS: BASOPHILS 0.1 % (0-2); EOSINOPHILS 0 % (0-7); HEMATOCRIT 40.3 % (36.0-48.0); HEMOGLOBIN 12.5 g/dL (12-16); IMMATURE GRANULOCYTES 0.4 % (0-5); LYMPHOCYTES 3.7 % (15-50); MCH 26.3 pg (26.0-34.0); MEAN PLATELET VOLUME 10.7 fL (7.4-10.4); MONOCYTES 1.3 % (2-11); NEUTROPHILS 94.5 % (40-80); PLATELET COUNT 201 10x3/uL (130-400); RBC 4.75 10x6/uL (4.00-5.40); RDW 15.6 % (11.5-14.5); WBC 8.3 10x3/uL (4.8-10.8)
[2018-07-21 07:10] LABS: CALCIUM 8.3 mg/dL (8.5-10.1); CREATININE - SERUM 1.2 mg/dL (0.6-1.3)
[2018-07-21 07:17] LABS: ANION GAP 16.2 mmol/L (8-16); CARBON DIOXIDE 23.4 mmol/L (21.0-32.0); POTASSIUM - SERUM 3.6 mmol/L (3.5-5.1)
[2018-07-21 07:18] LABS: MCV 84.8 fL (80.0-100.0)
[2018-07-21 08:19] VITALS: BP 112/50
[2018-07-21 11:02] VITALS: BP 130/55
[2018-07-21 15:02] VITALS: BP 101/58
[2018-07-22 04:21] LABS: BASOPHILS 0.1 % (0-2); EOSINOPHILS 0 % (0-7); HEMATOCRIT 37.3 % (36.0-48.0); HEMOGLOBIN 11.9 g/dL (12-16); IMMATURE GRANULOCYTES 0.6 % (0-5); LYMPHOCYTES 6.2 % (15-50); MCH 26.5 pg (26.0-34.0); MCHC 31.9 g/dL (31.0-37.0); MCV 83.1 fL (80.0-100.0); MEAN PLATELET VOLUME 10.1 fL (7.4-10.4); MONOCYTES 2.6 % (2-11); NEUTROPHILS 90.5 % (40-80); PLATELET COUNT 196 10x3/uL (130-400); RBC 4.49 10x6/uL (4.00-5.40); RDW 15.5 % (11.5-14.5); WBC 8.4 10x3/uL (4.8-10.8)
[2018-07-22 04:41] LABS: ANION GAP 13.7 mmol/L (8-16); CALCIUM 8.5 mg/dL (8.5-10.1); CARBON DIOXIDE 26.4 mmol/L (21.0-32.0); CREATININE - SERUM 1.1 mg/dL (0.6-1.3); POTASSIUM - SERUM 4.1 mmol/L (3.5-5.1)
[2018-07-22 08:07] VITALS: BP 111/57
[2018-07-22 11:34] VITALS: BP 112/63
[2018-07-22 15:12] VITALS: BP 129/76
[2018-07-23] VITALS: BP 124/53
[2018-07-23 04:00] VITALS: BP 122/70
[2018-07-23 04:22] LABS: BASOPHILS 0.3 % (0-2); EOSINOPHILS 0.5 % (0-7); HEMATOCRIT 37.6 % (36.0-48.0); HEMOGLOBIN 11.7 g/dL (12-16); IMMATURE GRANULOCYTES 0.5 % (0-5); LYMPHOCYTES 12.1 % (15-50); MCH 26.1 pg (26.0-34.0); MCHC 31.1 g/dL (31.0-37.0); MCV 83.9 fL (80.0-100.0); MEAN PLATELET VOLUME 10.3 fL (7.4-10.4); MONOCYTES 3.5 % (2-11); NEUTROPHILS 83.1 % (40-80); PLATELET COUNT 192 10x3/uL (130-400); RBC 4.48 10x6/uL (4.00-5.40); RDW 15.8 % (11.5-14.5); WBC 7.5 10x3/uL (4.8-10.8)
[2018-07-23 04:31] LABS: ANION GAP 12.1 mmol/L (8-16); CALCIUM 8.2 mg/dL (8.5-10.1); CARBON DIOXIDE 28.2 mmol/L (21.0-32.0); POTASSIUM - SERUM 4.3 mmol/L (3.5-5.1)
[2018-07-23 09:08] VITALS: BP 121/49
[2018-07-23 14:19] VITALS: BP 137/61
[2018-07-23 18:00] VITALS: BP 104/36
[2018-07-23 20:00] VITALS: BP 112/46
[2018-07-24] VITALS: BP 125/71
[2018-07-24 04:00] VITALS: BP 119/60
[2018-07-24 05:16] LABS: BASOPHILS 0.2 % (0-2); EOSINOPHILS 1.1 % (0-7); HEMATOCRIT 36.8 % (36.0-48.0); HEMOGLOBIN 11.5 g/dL (12-16); IMMATURE GRANULOCYTES 0.5 % (0-5); LYMPHOCYTES 18.4 % (15-50); MCH 26.2 pg (26.0-34.0); MCHC 31.3 g/dL (31.0-37.0); MCV 83.8 fL (80.0-100.0); MEAN PLATELET VOLUME 10.5 fL (7.4-10.4); NEUTROPHILS 73.8 % (40-80); PLATELET COUNT 181 10x3/uL (130-400); RBC 4.39 10x6/uL (4.00-5.40); RDW 15.9 % (11.5-14.5)
[2018-07-24 05:18] LABS: WBC 10.2 10x3/uL (4.8-10.8)
[2018-07-24 08:12] VITALS: BP 118/49
[2018-07-24 08:59] LABS: ANION GAP 12.3 mmol/L (8-16); CALCIUM 8.6 mg/dL (8.5-10.1); CARBON DIOXIDE 27.1 mmol/L (21.0-32.0); CREATININE - SERUM 0.9 mg/dL (0.6-1.3)
[2018-07-24 09:00] LABS: POTASSIUM - SERUM 3.4 mmol/L (3.5-5.1)
[2018-07-24] MEDS ORDERED: PREDNISONE20 MG PO (11:58)
[2018-07-24] MEDS ORDERED: OMNICEF300 MG PO (11:59)
[2018-07-24] MEDS ORDERED: PREDNISONE10 MG PO (11:59)
[2018-07-24] MEDS ORDERED: GLYBURIDE2.5 MG PO (12:05)
[2018-07-24 12:16] VITALS: BP 96/47
== END 2018-07-24 16:00 | disposition home or self-care (01) | DRG 189 ==
LOC: D.M2 15:00 → D.SDCHOLD 15:00 → D.M2 15:04
PROVIDERS: Family Medicine; Internal Medicine Nephrology
DX: J96.22 Acute and chronic respiratory failure with hypercapnia (principal); J44.1 Chronic obstructive pulmonary disease with (acute) exacerbation; N39.0 Urinary tract infection, site not specified; J98.11 Atelectasis; J96.21 Acute and chronic respiratory failure with hypoxia; I10 Essential (primary) hypertension; K21.9 Gastro-esophageal reflux disease without esophagitis; I25.10 Atherosclerotic heart disease of native coronary artery without angina pectoris; E78.5 Hyperlipidemia, unspecified; K64.9 Unspecified hemorrhoids; G25.81 Restless legs syndrome; J30.9 Allergic rhinitis, unspecified; Z95.5 Presence of coronary angioplasty implant and graft; Z95.1 Presence of aortocoronary bypass graft; B96.1 Klebsiella pneumoniae [K. pneumoniae] as the cause of diseases classified elsewhere; B95.3 Streptococcus pneumoniae as the cause of diseases classified elsewhere

== ENCOUNTER 2018-07-27 11:30 | Inpatient (IN) | payer MEDICARE ==
[~2018-07-27] VITALS: Ht 167.6 cm; Wt 96.2 kg
--- NOTE | ~2018-07-27 | MORECARE ---
CASE MANAGEMENT DISCHARGE SUMMARY PATIENT: MARIELOS TALAMANTES UNIT: [id number] ADM DATE: 07/27/18 AGE: 78 : 39 SEX: F ROOM/BED: D.1205 AUTHOR: CLAUDIADOC PHYSICIAN: REFERRING PHYSICIAN: IRINA AGUILERA DO DATE OF SERVICE: 07/27/18 Discharge Plan Patient Name: MARIELOS TALAMANTES Facility: [facility]:[place] : 1940 Planned Disposition: Home Anticipated Discharge Date: Discharge Date: Expected LOS: Initial Reviewer: [email or web address] Initial Review Date: 07/27/2018 Generated: 07/27/18 10:35 pm Comments DCP- Discharge Planning Updated by [email or web address]: Teresita Hernandes on 07/27/18 8:[address] Patient Name: MARIELOS TALAMANTES Admission Status: Elective Accout number: [id number] Admission Date: 07-27-2018 : 1940 Admission Diagnosis: Attending: IRINA AGUILERA Current LOS: 1 Anticipated DC Date: Planned Disposition: Home Primary Insurance: [employer] Discharge Planning Comments: CM met with patient at bedside after obtaining verbal consent. Patient states she plans on returning home after discharge with significant other. Patient states she will have family transport her home via private vehicle. Patient denies any discharge needs at this time. CM will continue to follow and assist as needed for discharge planning / needs. Real Estate Officer: Teresita Hernandes DCPIA - Discharge Planning Initial Assessment Updated by [email or web address]: Teresita Hernandes on 07/27/18 9:27 pm * Is the patient Alert and Oriented? Yes * How many steps to enter\exit or inside your home? * PCP Zbigniew * [facility]acy [facility] * Preadmission Environment Home with Family * ADLs Independent * Other Equipment 02 , nebulizer, trilogy, walker, cane, shower chair * List name and contact numbers for known caregivers / representatives who currently or will assist patient after discharge: Teresa Mojica [phone] * Verbal permission to speak to the caregivers and representatives has been obtained from the patient. N/A * Community resources currently utilized None * Additional services required to return to the preadmission environment? No * Can the patient safely return to the preadmission environment? Yes * Has this patient been hospitalized within the prior 30 days at any hospital? No Last DP export: 07/27/18 8:28 Patient Name: MARIELOS TALAMANTES Page [phone] at 2135 All edits/amendments must be made on the electronic document DICTATION DATE: 07/27/182133 STAFF WEAPONS OFFICER: SAUL 07/27/182133 RPT#: [id number] DC DATE: STATUS: ADM IN [facility] [address] [place] [address] END OF REPORT
--- NOTE | ~2018-07-27 | MORECARE ---
CASE MANAGEMENT DISCHARGE SUMMARY PATIENT: MARIELOS TALAMANTES UNIT: [id number] ADM DATE: 07/27/18 AGE: 78 : 39 SEX: F ROOM/BED: D.1205 AUTHOR: CATHERINE TAYLOR PHYSICIAN: REFERRING PHYSICIAN: IRINA AGUILERA DO DATE OF SERVICE: 07/27/18 Discharge Plan Patient Name: MARIELOS TALAMANTES [facility] [facility] 1940 Planned Disposition: Home Anticipated Discharge Date: Discharge Date: Expected LOS: Initial Reviewer: [email or web address] Initial Review Date: 07/27/2018 Generated: 07/27/18 10:28 pm DCPIA - Discharge Planning Initial Assessment Updated by [email or web address]: Teresita Hernandes on 07/27/18 9:27 pm * Is the patient Alert and Oriented? Yes * How many steps to enter\exit or inside your home? * PCP Zbigniew * Pharm[facility] * Preadmission Environment Home with Family * ADLs Independent * Other Equipment 02 , nebulizer, trilogy, walker, cane, shower chair * List name and contact numbers for known caregivers / representatives who currently or will assist patient after discharge: Teresa Mojica [phone] * Verbal permission to speak to the caregivers and representatives has been obtained from the patient. N/A * Community resources currently utilized None * Additional services required to return to the preadmission environment? No * Can the patient safely return to the preadmission environment? Yes * Has this patient been hospitalized within the prior 30 days at any hospital? No Patient Name: MARIELOS TALAMANTES Page [phone] at 2128 All edits/amendments must be made on the electronic document DICTATION DATE: 07/27/182126 STEAM LOCOMOTIVE FIRER/FIREMAN: SAUL 07/27/182126 RPT#: [id number] DC DATE: STATUS: ADM IN [facility] [address] [place] [address] END OF REPORT
--- NOTE | ~2018-07-27 | CN ---
PATIENT NAME:MARIELOS BURLESON MEDICAL RECORD: [id number] : 38 LOCATION:D.M3 D.1205 ADMIT DATE: 07/27/18 ACCOUNT: [id number] CONSULTING PHYSICIAN: ANNABELLE LIGHT MD REFERRING PHYSICIAN: IRINA AGUILERA DO DATE OF CONSULTATION: 07/27/2018 CONSULT REQUESTING PHYSICIAN: Dr. Aguilera. REASON FOR CONSULTATION: Worsening shortness of breath, swelling of the lower extremities. HISTORY OF PRESENT ILLNESS: Ms. Burleson is a 78-year-old female, very well known to me. She was just discharged a week ago. She underwent bronchoscopy, which grew pseudomonas. According to the patient, she has worsening shortness of breath for the last 2-3 days. Her legs were swollen. Her abdomen was swollen. Also, she has a puffy face. She was seen in Dr. Aguilera's office and admitted to the hospital. REVIEW OF SYSTEMS: As in history of present illness. PAST MEDICAL HISTORY: 1. COPD. 2. Asthma. 3. Coronary artery disease. 4. Chronic bronchitis. 5. Chronic sinusitis. 6. Hypertension. 7. Gastroesophageal reflux disease. 8. Ventral hernia. 9. Chronic diastolic CHF. 10. 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 PAST SURGICAL HISTORY: 1. She has CABG. 2. Cholecystectomy. 3. Cataract surgery. 4. Hysterectomy. ALLERGIES: She is allergic to METRONIDAZOLE, AMOXICILLIN, CEFEPIME, CLAVULANIC ACID, LEVOFLOXACIN. MEDICATIONS: Montage [employer] is reviewed. PERSONAL AND SOCIAL HISTORY: The patient is an ex-smoker. She is a nondrinker. FAMILY HISTORY: Noncontributory. PHYSICAL EXAMINATION: GENERAL: Now, the patient is lying comfortably. She is not in acute distress. VITAL SIGNS: The blood pressure is 132/65, pulse is 86, respiration 24, temperature 98.1, SpO2 is 98% on 3 liters cannula. On arrival, she was 84% on 2 liters nasal cannula. HEENT: Conjunctivae are pink. Sclerae are not icteric. NECK: Supple, no JVD. CONSULT REPORT [id number] MARIELOS BURLESON CHEST: The chest excursion is minimal on both sides. Wheeze on forceful expiration. HEART: Rhythm regular, normal sound, no murmur. ABDOMEN: Soft, bowel sounds present. No hepatosplenomegaly. RECTAL: Deferred. EXTREMITIES: No cyanosis, no clubbing, no pedal edema. SKIN: Warm, normal turgor. CENTRAL NERVOUS SYSTEM: The patient is awake and alert. There are no obvious cranial nerve abnormalities. The gait was not tested. There is no cyanosis. There is 2+ pedal edema. CENTRAL NERVOUS SYSTEM: Awake and alert. There are no obvious cranial nerve abnormalities. IMAGING: Chest radiograph, there is increased interstitial marking, no infiltrates. LABORATORY DATA: CBC: WBC 9.2, hemoglobin 13, hematocrit 41, and the platelet count is 233. The proBNP is 194. IMPRESSION: 1. Vrazx-gp-loyvhaz hypoxic respiratory failure. The patient's SpO2 was 84% on 2 liters. 2. Acute exacerbation of COPD. 3. Pseudomonas colonization. 4. Zitao-ra-msvyvbx bronchitis. 5. Asthma. 6. Pedal edema, rule out congestive heart failure, possible fluid retention secondary to steroid, but the patient does have a history of CHF with diastolic dysfunction. RECOMMENDATION: 1. Continue Lasix. 2. Follow up labs and chest radiograph. I will start meropenem. The patient has allergy to CEFEPIME. 3. Brovana, budesonide nebulizer. 4. Albuterol ipratropium nebulizer. 5. Singulair 10 mg daily. 6. Stop the oral prednisone. 7. Follow up labs and chest radiograph. Dr. Aguilera, thank you for involving me in the care of Ms. Burleson. TRANSINT:[id number] Voice Confirmation ID: [id number] DOCUMENT ID: [id number] ANNABELLE LIGHT MD at 1711 CC: [id number] DICTATION DATE: 07/27/18 170 DIAMOND FINISHING SUPERVISOR: 07/28/18 0032 ADM IN [facility] [address] [place] [address]
--- NOTE | ~2018-07-27 | MORECARE ---
CASE MANAGEMENT DISCHARGE SUMMARY PATIENT: MARIELOS TALAMANTES UNIT: [id number] ADM DATE: 07/27/18 AGE: 78 : 39 SEX: F ROOM/BED: D.1205 AUTHOR: CATHERINE TAYLOR PHYSICIAN: REFERRING PHYSICIAN: IRINA AGUILERA DO DATE OF SERVICE: 07/29/18 Discharge Plan Patient Name: MARIELOS TALAMANTES Facility: [facility]:[place] : 1940 Planned Disposition: Home Anticipated Discharge Date: Discharge Date: 07/29/2018 Expected LOS: Initial Reviewer: [id number] Initial Review Date: 07/27/2018 Generated: 07/29/18 4:09 pm Comments DCP- Discharge Planning Updated by [email or web address]: Teresita Hernandes on 07/27/18 8:[address] Patient Name: MARIELOS TALAMANTES Admission Status: Elective Accout number: [id number] Admission Date: 07-27-2018 : 1940 Admission Diagnosis: Attending: IRINA AGUILERA Current LOS: 1 Anticipated DC Date: Planned Disposition: Home Primary Insurance: [facility] [employer] Discharge Planning Comments: CM met with patient at bedside after obtaining verbal consent. Patient states she plans on returning home after discharge with significant other. Patient states she will have family transport her home via private vehicle. Patient denies any discharge needs at this time. CM will continue to follow and assist as needed for discharge planning / needs. Clothing Supervisor: Teresita Hernandes DCPIA - Discharge Planning Initial Assessment Updated by [email or web address]: Teresita Hernandes on 07/27/18 9:27 pm * Is the patient Alert and Oriented? Yes * How many steps to enter\exit or inside your home? * PCP Eduo * Pharmacy [facility] * Preadmission Environment Home with Family * ADLs Independent * Other Equipment 02 , nebulizer, trilogy, walker, cane, shower chair * List name and contact numbers for known caregivers / representatives who currently or will assist patient after discharge: Teresa Mojica [phone] * Verbal permission to speak to the caregivers and representatives has been obtained from the patient. N/A * Community resources currently utilized None * Additional services required to return to the preadmission environment? No * Can the patient safely return to the preadmission environment? Yes * Has this patient been hospitalized within the prior 30 days at any hospital? No Last DP export: 07/27/18 8:35 Patient Name: MARIELOS TALAMANTES Page [id number] at 1509 All edits/amendments must be made on the electronic document DICTATION DATE: 07/29/181507 DINING ROOM SUPERVISOR: SAUL 07/29/18 1508 RPT#: [id number] DC DATE:07/29/18 STATUS: DIS IN [facility] [address] [place] [address] END OF REPORT
--- NOTE | ~2018-07-27 | EC ---
PATIENT:MARIELOS TALAMANTES DATE OF SERVICE: 07/27/18 SEX: F MEDICAL RECORD: [id number] DATE OF : [birth year] LOCATION:D. D.120 AGE OF PATIENT: 78 ADMISSION DATE: 07/27/18 REFERRING PHYSICIAN: INTERPRETING PHYSICIAN: DIAZ MOULTON MD ECHOCARDIOGRAM REPORT ECHO CHARGES 4 ECHO COMPLETE Date: 07/27/18 CLINICAL DIAGNOSIS: CHF ECHOCARDIOGRAPHIC MEASUREMENTS (adult normal given) AC root (d.<3.7cm) 2.9 cm LV Septum d (<1.2 cm> 1.1 cm Valve Excursion 1.6 cm LV Septum (systole) 1.7 cm Left Atria (s.<4.0cm> 3.6 cm LVPW d(<1.2cm) 1.0 cm RV (d.<2.3cm) 2.4 cm LVPW (sytole) 1.1 cm LV diastole(<5.6CM) 4.6 cm MV E-F(>70mm/sec) cm LV systole 3.4 cm LVOT Diameter 1.5 cm MV exc.(>10mm) cm Est.ejection fraction (50-75%) % DOPPLER: LVIT cm/sec A 116 cm/sec E 73 cm/sec LA cm/sec RVSP 18.7 mmHg LVOT 128 cm/sec AOP1/2T m/s Asc. Ao 168 cm/sec RVOT 95 cm/sec RA cm/sec PA 102 cm/sec AV Gradient Peak 11.3 mmHg AV Mean 6.0 mmHg AV Area 1.6 cm MV Gradient Peak 4.4 mmHg MV Mean 1.7 mmHg MV Area cm COMMENTS: Radiology Director: Zion SALDIVAR Salvage Winder And Inspector: 1 Dr. Moulton TAPE# PACS Pericardial Effusion N DATE OF SERVICE: 07/27/2018 FINDINGS: 1. Left ventricular chamber size is within normal limits. Left ventricular systolic function is normal. Overall ejection fraction is estimated at 55%. 2. Left atrium, right atrium, and right ventricular chamber sizes are within normal limit. 3. Valvular structures have normal structure and motion. 4. Doppler interrogation reveals only trace tricuspid regurgitation. No other valvular insufficiency or stenosis. Pulmonary systolic pressure is normal, ECHOCARDIOGRAM REPORT [id number] MARIELOS TALAMANTES estimated at 19 mmHg. 5. No evidence of pericardial effusion or left ventricular thrombus. TRANSINT:[id number] Voice Confirmation ID: [id number] DOCUMENT ID: [id number] DIAZ MOULTON MD at 1718 CC: [id number] DICTATION DATE: 07/27/18 152 COAT OPERATOR: 07/27/[address] [facility] [address] [place] [address]
[~2018-07-27 11:30] MED LIST changes: +GLYBURIDE2.5 MG PO; +PREDNISONE20 MG PO; +TRELEGY INH
[2018-07-27 13:09] VITALS: BP 132/65; BMI 34.3
[2018-07-27 15:52] LABS: BASOPHILS 0.4 % (0-2); EOSINOPHILS 2.1 % (0-7); IMMATURE GRANULOCYTES 1.4 % (0-5); LYMPHOCYTES 29.8 % (15-50); MCH 26.5 pg (26.0-34.0); MCHC 31.7 g/dL (31.0-37.0); MCV 83.5 fL (80.0-100.0); MEAN PLATELET VOLUME 10.3 fL (7.4-10.4); MONOCYTES 7.6 % (2-11); NEUTROPHILS 58.7 % (40-80); RBC 4.91 10x6/uL (4.00-5.40); RDW 15.5 % (11.5-14.5); WBC 9.2 10x3/uL (4.8-10.8)
[2018-07-27 15:53] LABS: PLATELET COUNT 233 10x3/uL (130-400)
[2018-07-27 17:37] VITALS: BP 121/58
[2018-07-27 19:00] VITALS: BP 103/71
[2018-07-27 23:44] VITALS: BP 116/61
[2018-07-28 04:13] VITALS: BP 110/41
[2018-07-28 06:47] LABS: BASOPHILS 0.1 % (0-2); EOSINOPHILS 0 % (0-7); HEMATOCRIT 40.8 % (36.0-48.0); IMMATURE GRANULOCYTES 0.7 % (0-5); LYMPHOCYTES 5.3 % (15-50); MCH 26.3 pg (26.0-34.0); MCHC 31.9 g/dL (31.0-37.0); MCV 82.4 fL (80.0-100.0); MEAN PLATELET VOLUME 10.2 fL (7.4-10.4); MONOCYTES 1.5 % (2-11); NEUTROPHILS 92.4 % (40-80); PLATELET COUNT 222 10x3/uL (130-400); RBC 4.95 10x6/uL (4.00-5.40); RDW 15.2 % (11.5-14.5); WBC 9.4 10x3/uL (4.8-10.8)
[2018-07-28 07:07] LABS: ANION GAP 20.6 mmol/L (8-16); CARBON DIOXIDE 24.7 mmol/L (21.0-32.0); CREATININE - SERUM 1.1 mg/dL (0.6-1.3); POTASSIUM - SERUM 4.3 mmol/L (3.5-5.1)
[2018-07-28 07:34] VITALS: BP 115/57
[2018-07-28 10:54] VITALS: Ht 167.6 cm; Wt 96.2 kg
[2018-07-28 11:18] VITALS: BP 122/61
[2018-07-28 15:57] VITALS: BP 136/67
[2018-07-28 20:00] VITALS: BP 121/69
[2018-07-29] VITALS: BP 113/57
[2018-07-29 04:00] VITALS: BP 111/63
[2018-07-29 06:41] LABS: BASOPHILS 0.1 % (0-2); EOSINOPHILS 0.3 % (0-7); HEMATOCRIT 39.6 % (36.0-48.0); HEMOGLOBIN 12.7 g/dL (12-16); IMMATURE GRANULOCYTES 0.6 % (0-5); LYMPHOCYTES 6.4 % (15-50); MCH 26.5 pg (26.0-34.0); MCHC 32.1 g/dL (31.0-37.0); MCV 82.7 fL (80.0-100.0); MEAN PLATELET VOLUME 10.2 fL (7.4-10.4); MONOCYTES 4.3 % (2-11); NEUTROPHILS 88.3 % (40-80); PLATELET COUNT 235 10x3/uL (130-400); RBC 4.79 10x6/uL (4.00-5.40); RDW 15.3 % (11.5-14.5); WBC 9.8 10x3/uL (4.8-10.8)
[2018-07-29 06:52] LABS: ANION GAP 13.6 mmol/L (8-16); CALCIUM 8.6 mg/dL (8.5-10.1); CARBON DIOXIDE 30.2 mmol/L (21.0-32.0); POTASSIUM - SERUM 3.8 mmol/L (3.5-5.1)
[2018-07-29 07:34] VITALS: BP 122/83
[2018-07-29] MEDS ORDERED: FUROSEMIDE40 MG PO (08:41)
[2018-07-29] MEDS ORDERED: K-TAB10 MEQ PO (08:41)
[2018-07-29 11:25] VITALS: BP 124/66
== END 2018-07-29 14:07 | disposition home or self-care (01) | DRG 291 ==
LOC: D.M3 11:30
PROVIDERS: Family Medicine; Internal Medicine Pulmonary Disease
DX: I50.9 Heart failure, unspecified (principal); J96.21 Acute and chronic respiratory failure with hypoxia; J44.1 Chronic obstructive pulmonary disease with (acute) exacerbation; J44.0 Chronic obstructive pulmonary disease with (acute) lower respiratory infection; J20.9 Acute bronchitis, unspecified

== ENCOUNTER 2018-09-03 07:31 | Inpatient (IN) | payer MEDICARE, MEDICAID ==
[~2018-09-03] VITALS: Ht 167.6 cm; Wt 92.1 kg
[2018-09-03 08:23] LABS: BASOPHILS 0.1 % (0-2); EOSINOPHILS 1.5 % (0-7); HEMATOCRIT 42.6 % (36.0-48.0); HEMOGLOBIN 13.9 g/dL (12-16); IMMATURE GRANULOCYTES 0.4 % (0-5); LYMPHOCYTES 2.9 % (15-50); MCHC 32.6 g/dL (31.0-37.0); MCV 82.9 fL (80.0-100.0); MEAN PLATELET VOLUME 10.4 fL (7.4-10.4); MONOCYTES 2.9 % (2-11); NEUTROPHILS 92.2 % (40-80); PLATELET COUNT 229 10x3/uL (130-400); RBC 5.14 10x6/uL (4.00-5.40); RDW 14.6 % (11.5-14.5)
[2018-09-03 08:30] VITALS: BP 132/57
--- NOTE | 2018-09-03 08:37 | NUR ---
PATIENT PLACED ON BEDPAN, GIVEN BLANKETS FOR COMFORT, CALL LIGHT WITHIN REACH, AND BEDSIDE TABLE NEAR PATIENT.
[2018-09-03 08:40] LABS: ALBUMIN 3.3 g/dL (3.4-5.0); ALKALINE PHOSPHATASE 54 U/L (46-116); ALT (SGPT) 31 U/L (10-68); BILIRUBIN - TOTAL 0.66 mg/dL (0.2-1.3); CALC OSMOLALITY 283 mosm/kg (275-300); CALCIUM 8.2 mg/dL (8.5-10.1); CARBON DIOXIDE 28.4 mmol/L (21.0-32.0); CHLORIDE - SERUM 97 mmol/L (98-107); GLUCOSE 191 mg/dL (74-106); LIPASE 136 U/L (73-393); PROTEIN - SERUM 7.2 g/dL (6.4-8.2); SODIUM 138 mmol/L (136-145); UREA NITROGEN 21 mg/dL (7-18); eGFR NON AFRICAN AMERICAN 57 mL/min (90-120)
[2018-09-03 08:50] LABS: POTASSIUM - SERUM 2.7 mmol/L (3.5-5.1); TROPONIN-I < 0.017 ng/mL (0.000-0.060)
[2018-09-03 09:15] VITALS: BP 125/65
[2018-09-03 09:34] LABS: APPEARANCE HAZY (CLEAR); BILIRUBIN NEGATIVE (NEGATIVE); COLOR YELLOW (YELLOW); GLUCOSE NEGATIVE (NEGATIVE); KETONE NEGATIVE (NEGATIVE); NITRITE NEGATIVE (NEGATIVE); PROTEIN NEGATIVE (NEGATIVE); SPECIFIC GRAVITY 1.015 (1.005-1.020); UROBILINOGEN NORMAL (NORMAL)
[2018-09-03 09:36] LABS: BACTERIA FEW /hpf (NONE SEEN); EPITHELIAL CELLS 0-5 /hpf (0-5); RED CELLS - URINE 0-5 /hpf (0-5); WHITE CELLS - URINE 0-5 /hpf (0-5)
--- NOTE | 2018-09-03 10:55 | NUR ---
PATIENT HAD LOOSE BROWN STOOL, SHE IS CHANGED AND CLEANED, AND PLACED IN NEW BRIEF. FAMILY AT BEDSIDE. UPDATED ON PLAN OF CARE AND DELAYS IN CARE.
--- NOTE | 2018-09-03 11:25 | NUR ---
PATIENT AWAKE AND ALERT, COLOR WNL FOR RACE. RESPIRATIOS EVEN AND UNLABORED. NO NEEDS NOTED. UPDATED ON PLAN OF CARE AND DELAYS IN CARE. WILL CONTINUE TO MONITOR.
--- NOTE | 2018-09-03 11:55 | NUR ---
PATIENT CONTINUES TO HAVE LIQUID STOOLS. STOOL SAMPLE COLLECTED AND WALKED TO THE LAB. PATIENT CLEANED AND PLACED IN NEW BRIEF. FAMILY AT BEDSIDE. UPDATED ON PLAN OF CARE AND DELAYS IN CARE.
--- NOTE | 2018-09-03 12:30 | NUR ---
PATIENT AWAKE AND ALERT, COLOR WNL FOR RACE, RESPIRATIONS EVEN AND UNLABORED. FAMILY AT BEDSIDE. UPDATED ON PLAN OF CARE AND DELAYS IN CARE. NO NEEDS NOTED. PATIENT IS HAVING UNCONTROLLED DIARRHEA. CLEANED AND PLACED IN CLEAN BRIEF. WILL CONTINUE TO MONITOR.
[2018-09-03 16:00] VITALS: BP 106/74
[2018-09-03 19:28] VITALS: BP 106/74; BMI 32.8
--- NOTE | 2018-09-03 20:00 | NUR ---
ALERT AND ORIENTIATED SITTING UP IN BED STATES HAD ANOTHER LOOSE STOOL IV INFUSING WITHOUT DIFFICULTY CALLL LIGHT IN REACH.
[2018-09-03 20:42] VITALS: BP 98/42
[2018-09-04 04:32] VITALS: BP 121/55
--- NOTE | 2018-09-04 06:15 | NUR ---
CALL TO DR WU CONCERNING ORDER FOR FLAGYL AND WAS GIVEN AT 2130 LAST NIGHT WITH NO REACTION, LATER REALIZED FLAGYL WAS LISTED ALLERGY AND WHEN ASK ABOUT REACTION STATED MADE MY FACE TURN RED, MAY NOT OF EVEN BEEN A REACTION, OR ONLY A ONE TIME THING. ORDER TO CONTINUE ORDERS FOR FLAGYL ADD WATCH FOR SIGNS OF REACTION.
--- NOTE | 2018-09-04 07:55 | NUR ---
SITTING UPRIGHT IN BED, EVEN UNLABORED BREATHING, AWAKE AND ALERT, O2 PRESENT VIA NC AT 2LPM, IV IN RIGHT AC, PATENT, INFUSING FLUIDS, ENTERIC ISOLIATION FOR POSTIVE C.DIFF, DENIES ANY CURRENT NEEDS OR DISCOMFORTS, BED LOWERED AND LOCKED, CALL LIGHT WITHIN REACH. CPOC
[2018-09-04 08:24] LABS: BASOPHILS 0.2 % (0-2); EOSINOPHILS 1.9 % (0-7); HEMATOCRIT 37.5 % (36.0-48.0); HEMOGLOBIN 11.8 g/dL (12-16); IMMATURE GRANULOCYTES 0.6 % (0-5); LYMPHOCYTES 17.5 % (15-50); MCH 26.6 pg (26.0-34.0); MCHC 31.5 g/dL (31.0-37.0); MCV 84.5 fL (80.0-100.0); MEAN PLATELET VOLUME 10.1 fL (7.4-10.4); NEUTROPHILS 70.8 % (40-80); PLATELET COUNT 193 10x3/uL (130-400); RBC 4.44 10x6/uL (4.00-5.40); RDW 14.9 % (11.5-14.5)
[2018-09-04 08:28] LABS: WBC 5.3 10x3/uL (4.8-10.8)
[2018-09-04 08:45] LABS: ANION GAP 11.7 mmol/L (8-16); CALCIUM 7.2 mg/dL (8.5-10.1); CARBON DIOXIDE 29.6 mmol/L (21.0-32.0); CREATININE - SERUM 0.8 mg/dL (0.6-1.3)
[2018-09-04 08:46] LABS: POTASSIUM - SERUM 2.3 mmol/L (3.5-5.1)
[2018-09-04 08:48] VITALS: BP 115/49
[2018-09-04 16:10] VITALS: BP 115/70
--- NOTE | 2018-09-04 18:11 | NUR ---
PATIENT CONTINUES ENTERIC ISOLATION WITH O2 2LITER N/C. BS CHECKED AC/HS WITH SLIDING SCALE. UP AD AIDAN AND DENIES ANY DIARRHEA. ENCOURAGED TO USE CALL LIGHT FOR ASSIST.
--- NOTE | 2018-09-04 18:28 | NUR ---
LAYING ON LEFT SIDE, AWAKE AND ALERT, EVEN UNLABORED BREATHING 02 PRESENT VIA NC AT 2LPM, RIGHT AV IV PATENT AND INFUSING FLUIDS, ON ENTERIC ISOLATION FOR C.DIFF, DENIES ANY CURRENT NEEDS OR DISCOMFORTS, BED LOWERED AND LOCKED, CALL LIGHT WITHIN REACH. CPOC
--- NOTE | 2018-09-04 20:30 | NUR ---
PT SITTING UP ON SIDE OF BED, ALERT AND ORIENTED. O2 2L/NC. PT STATES SHE IS HAVING PAIN IN HER LEGS AND BACK. GAVE PT ORDERED ULTRAM. PT HAD SMALL LOOSE BM. STATES HER BM'S HAVE SLOWED DOWN AND ARE NOT LIQUID BEFORE. PT HAS NO OTHER COMPLAINTS OR NEEDS. BS 122, NO COVERAGE PER SS. BED LOWEST POSITION, SRX2, CL IN REACH. WILL CONTINUE TO MONITOR
[2018-09-04 20:45] VITALS: BP 106/70
--- NOTE | 2018-09-04 21:30 | NUR ---
PT STATES PAIN 10/10 IN LEGS AND BAG AND THAT THE ULTRAM DID NOT HELP. OFFERED PT HEAT PACKS, PT SAID SHE DID NOT BELIEVE THOSE WOULD HELP AND STATED SHE NEEDED "OTHER MEDICINE" GAVE PT ORDERED MORPHINE. WILL CONTINUE TO MONITOR
--- NOTE | 2018-09-04 22:30 | NUR ---
PT STATES PAIN IN LEGS IS SLIGHTLY BETTER. STATES THEY'RE JUST REALLY ACHY. PT ACCEPTED HEAT PACKS TO PLACE ON LEGS AND BACK. STATED THEY DID HELP BUT SHE WAS STILL VERY ACHY. PT IS AFEBRILE AND STATES SHE HAS BEEN LAYING IN BED EXCEPT TO GET UP TO USE BATHROOM. TOLD PT SHE COULD BE HURTING FROM LAYING IN BED SO LONG, OFFERED TO HELP AMBULATE AROUND. PT REFUSED. NO OTHER COMPLAINTS OR NEEDS AT THIS TIME. CL IN REACH
[2018-09-05 00:27] VITALS: BP 105/50
[2018-09-05 04:41] VITALS: BP 133/57
[2018-09-05 05:53] LABS: BASOPHILS 0.2 % (0-2); EOSINOPHILS 3.2 % (0-7); HEMATOCRIT 37.1 % (36.0-48.0); HEMOGLOBIN 11.5 g/dL (12-16); IMMATURE GRANULOCYTES 0.6 % (0-5); MCH 26.4 pg (26.0-34.0); MCV 85.1 fL (80.0-100.0); MONOCYTES 9.5 % (2-11); NEUTROPHILS 52.5 % (40-80); PLATELET COUNT 208 10x3/uL (130-400); RBC 4.36 10x6/uL (4.00-5.40); RDW 14.9 % (11.5-14.5); WBC 4.8 10x3/uL (4.8-10.8)
[2018-09-05 06:32] LABS: CALC OSMOLALITY 276 mosm/kg (275-300); CALCIUM 7.3 mg/dL (8.5-10.1); CARBON DIOXIDE 28.5 mmol/L (21.0-32.0); CHLORIDE - SERUM 103 mmol/L (98-107); CREATININE - SERUM 0.6 mg/dL (0.6-1.3); GLUCOSE 132 mg/dL (74-106); MAGNESIUM - SERUM 1.6 mg/dL (1.8-2.4); SODIUM 139 mmol/L (136-145); eGFR NON AFRICAN AMERICAN > 90 mL/min (90-120)
[2018-09-05 06:33] LABS: UREA NITROGEN 5 mg/dL (7-18)
[2018-09-05 08:49] VITALS: BP 130/64
[2018-09-05 12:55] VITALS: BP 121/52
[2018-09-05 16:34] VITALS: BP 106/52
[2018-09-05 17:47] LABS: APPEARANCE CLEAR (CLEAR); COLOR YELLOW (YELLOW); NITRITE NEGATIVE (NEGATIVE); PROTEIN NEGATIVE (NEGATIVE)
[2018-09-05 17:48] LABS: BILIRUBIN NEGATIVE (NEGATIVE); GLUCOSE NEGATIVE (NEGATIVE); KETONE NEGATIVE (NEGATIVE); UROBILINOGEN NORMAL (NORMAL)
[2018-09-05 19:00] VITALS: BP 112/45
[2018-09-06] VITALS: BP 110/46
--- NOTE | 2018-09-06 00:55 | NUR ---
A/OX4. PT COMPLAIN OF IV LEAKING. IT HAD COMPLETELY PULLED OUT. RESITED TO LT HAND. WILL CONTINUE POC.
[2018-09-06 05:16] LABS: BASOPHILS 0.3 % (0-2); EOSINOPHILS 4.9 % (0-7); HEMATOCRIT 36.4 % (36.0-48.0); HEMOGLOBIN 11.5 g/dL (12-16); IMMATURE GRANULOCYTES 0.7 % (0-5); MCH 26.6 pg (26.0-34.0); MCHC 31.6 g/dL (31.0-37.0); MCV 84.3 fL (80.0-100.0); MEAN PLATELET VOLUME 10.1 fL (7.4-10.4); MONOCYTES 8.1 % (2-11); PLATELET COUNT 223 10x3/uL (130-400); RBC 4.32 10x6/uL (4.00-5.40); RDW 15.1 % (11.5-14.5); WBC 5.8 10x3/uL (4.8-10.8)
[2018-09-06 05:47] LABS: CALC OSMOLALITY 280 mosm/kg (275-300); CALCIUM 7.6 mg/dL (8.5-10.1); CARBON DIOXIDE 27.3 mmol/L (21.0-32.0); CHLORIDE - SERUM 106 mmol/L (98-107); CREATININE - SERUM 0.7 mg/dL (0.6-1.3); GLUCOSE 105 mg/dL (74-106); POTASSIUM - SERUM 3.4 mmol/L (3.5-5.1); SODIUM 142 mmol/L (136-145); eGFR NON AFRICAN AMERICAN 85 mL/min (90-120)
[2018-09-06 05:51] LABS: UREA NITROGEN 7 mg/dL (7-18)
[2018-09-06 05:55] VITALS: BP 112/42
[2018-09-06 08:40] VITALS: BP 129/57
[2018-09-06 12:46] VITALS: BP 114/49
[2018-09-06 16:21] VITALS: BP 101/44
--- NOTE | 2018-09-06 17:20 | MORECARE ---
CASE MANAGEMENT DISCHARGE SUMMARY PATIENT: MARIELOS TALAMANTES UNIT: [id number] ADM DATE: 09/04/18 AGE: 78 : 39 SEX: F ROOM/BED: D.2208 AUTHOR: CATHERINE TAYLOR PHYSICIAN: REFERRING PHYSICIAN: ASHU WU MD DATE OF SERVICE: 09/06/18 Discharge Plan Patient Name: MARIELOS TALAMANTES Facility: [facility]:[place] : 1940 Planned Disposition: Home Anticipated Discharge Date: Discharge Date: Expected LOS: Initial Reviewer: [email or web address] Initial Review Date: 09/03/2018 Generated: 09/06/18 6:20 pm Coverage Notice Reviewer: [email or web address] - Huma Rosenbaum Notice Issued Date-Time: 09/06/2018 17:10 Notice Type: IM Discharge Notice Notice Delivered To: Patient Relationship to Patient: Investigator Narcotics Name: Delivery Method: HAND - Hand Delivered Gricelda Days: Prior Verbal Notification: Recipient Understood Notice: Yes Recipient Signature: Yes Med Rec Note Co-signed by Attending: Coverage Notice Comment: Patient Name: MARIELOS TALAMANTES Page [phone] at 1720 All edits/amendments must be made on the electronic document DICTATION DATE: 09/06/181718 AIRPORT UTILITY WORKER: SAUL 09/06/181718 RPT#: [id number] DC DATE: STATUS: ADM IN [facility] [address] [place] [address] END OF REPORT
--- NOTE | 2018-09-06 17:28 | MORECARE ---
CASE MANAGEMENT DISCHARGE SUMMARY PATIENT: MARIELOS TALAMANTES UNIT: [id number] ADM DATE: 09/04/18 AGE: 78 : 39 SEX: F ROOM/BED: D.2208 AUTHOR: CLAUDIADOC PHYSICIAN: REFERRING PHYSICIAN: ASHU WU MD DATE OF SERVICE: 09/06/18 Discharge Plan Patient Name: MARIELOS TALAMANTES Facility: [facility]:[place] : 1940 Planned Disposition: Home Anticipated Discharge Date: Discharge Date: Expected LOS: Initial Reviewer: [email or web address] Initial Review Date: 09/03/2018 Generated: 09/06/18 6:28 pm Comments DCP- Discharge Planning Updated by [email or web address]: Huma Rosenbaum on 09/06/18 4:[address] Patient Name: MARIELOS TALAMANTES Admission Status: ER Accout number: [id number] Admission Date: 09-04-2018 : 1940 Admission Diagnosis: Attending: ASHU WU Current LOS: 2 Anticipated DC Date: Planned Disposition: Home Primary Insurance: [employer] Discharge Planning Comments: CM MET WITH PATIENT AND DAUGHTER TO ASSESS DISCHARGE PLANNING NEEDS. PATIENT LIVES INDEPENDENTLY AT HOME WHERE SHE PLANS TO RETURN AT [place]. HER SPOUSE MAURISIO WILL BE THE ONE TO DRIVE HER HOME. SHE STATED THAT SHE DOES NOT WANT HOME HEALTH AT THIS TIME. SHE HAS HOME O2, NEBULIZER ([employer]) WALKER, WHEELCHAIR, SHOWER CHAIR AND HAD A TRILOGUY, BUT COULD NOT USE IT. SHE WOULD LIKE TO HAVE PORTABLE O2, I WILL CONTACT [facility] AND SEE IF THAT CAN BE ARRANGED. CM WILL CONTINUE TO FOLLOW AND ASSIST WITH DC PLANNING NEEDS Business School Dean: Huma Rosenbaum DCPIA - Discharge Planning Initial Assessment Updated by [id number]: Huma Rosenbaum on 09/06/18 5:22 pm * Is the patient Alert and Oriented? Yes * How many steps to enter\exit or inside your home? * PCP AIDENO * Pharmacy [facility] * Preadmission Environment Home with Family * ADLs Independent * Equipment Bedside Commode Nebulizer Oxygen Rolling Walker Shower Chair Walker Wheelchair * Other Equipment HAD TRILOGY * List name and contact numbers for known caregivers / representatives who currently or will assist patient after discharge: MAURISIO (SPOUSE) [phone] JOHNATHAN (DAUGHTER) [phone] * Verbal permission to speak to the caregivers and representatives has been obtained from the patient. Yes * Community resources currently utilized None * Additional services required to return to the preadmission environment? No * Can the patient safely return to the preadmission environment? Yes * Has this patient been hospitalized within the prior 30 days at any hospital? No Coverage Notice Reviewer: [id number] Michelle Rosenbaum Notice Issued Date-Time: 09/06/2018 17:10 Notice Type: IM Discharge Notice Notice Delivered To: Patient Relationship to Patient: Weblogic Administrator Name: Delivery Method: HAND - Hand Delivered Gricelda Days: Prior Verbal Notification: Recipient Understood Notice: Yes Recipient Signature: Yes Med Rec Note Co-signed by Attending: Coverage Notice Comment: Last DP export: 09/06/18 4:20 pm Patient Name: MARIELOS TALAMANTES Page [phone] at 1728 All edits/amendments must be made on the electronic document DICTATION DATE: 09/06/181727 DEALER ANALYST: SAUL 09/06/181727 RPT#: [id number] DC DATE: STATUS: ADM IN [facility] [address] [place] [address] END OF REPORT
[2018-09-06 20:17] VITALS: BP 101/53
--- NOTE | 2018-09-06 21:15 | NUR ---
ALERT AND ORIENTED X4. SITTING UP ON SIDE OF BED. REPORTS PAIN IN BACK AND LEGS 8. MEDICATED WITH ULTRAM ORDERED. RESP EVEN AND NONLABORED. SOB WITH MIN EXERTION. O2 @ 2L/NC. REPORTS PROD COUGH WITH YELLOW SPUTUM. BBS CTA WITH RHONCHI IN LLL. 2+ EDEMA NOTED TO BLE WITH ORANGE PEEL APPEARANCE. BRUISES NOTED TO BUE. REFUSES IV FLUIDS. SALINE LOCK NOTED TO LT HAND. SR ELEVATED X2. CL IN REACH.
[2018-09-07 01:10] VITALS: BP 99/53
[2018-09-07 05:02] LABS: BASOPHILS 0.5 % (0-2); EOSINOPHILS 3.7 % (0-7); HEMATOCRIT 34.8 % (36.0-48.0); HEMOGLOBIN 10.7 g/dL (12-16); IMMATURE GRANULOCYTES 0.3 % (0-5); LYMPHOCYTES 21.7 % (15-50); MCHC 30.7 g/dL (31.0-37.0); MCV 84.7 fL (80.0-100.0); MEAN PLATELET VOLUME 9.9 fL (7.4-10.4); NEUTROPHILS 64.8 % (40-80); PLATELET COUNT 225 10x3/uL (130-400); RBC 4.11 10x6/uL (4.00-5.40); RDW 15.1 % (11.5-14.5); WBC 5.9 10x3/uL (4.8-10.8)
--- NOTE | 2018-09-07 05:05 | NUR ---
HAS RESTED WELL TONIGHT. NO DIARRHEA. CL IN REACH
[2018-09-07 05:14] LABS: ANION GAP 12.3 mmol/L (8-16); CALCIUM 7.9 mg/dL (8.5-10.1); CARBON DIOXIDE 26.6 mmol/L (21.0-32.0); CREATININE - SERUM 0.8 mg/dL (0.6-1.3); POTASSIUM - SERUM 3.9 mmol/L (3.5-5.1)
--- NOTE | 2018-09-07 07:30 | NUR ---
REC'D SITTING ON SIDE OF BED AWAKE AND ALERT. RESP EVEN AND UNLABORED WITH NO DISTRESS NOTED. CAN EXPRESS NEEDS AND WANTS. DENIES ANY PAIN OR DISCOMFORT AT THIS TIME. C/O LEGS BEING SWOLLEN THIS NURSE INFORMED PT THAT SHE IS CURRENTLY TAKING 40 MG DAILY AND THAT THIS NURSE WILL INFORMED MD ABOUT HER INCREASE IN SWELLING. C/L IN REACH AT BEDSIDE.
[2018-09-07 08:45] VITALS: BP 131/68
--- NOTE | 2018-09-07 09:15 | NUR ---
WAS CALLED TO NURSING DESKT TO SPEAK WITH PT ABOUT SOME CONCERNS THAT HE HAVE. UPON THIS NURSE SPEAKING WITH THE HUBSAND AND EXPLAINING THE SITUATION THAT THE PT IS CURRENTLY TAKING LASIX 40 MG DAILY WHICH SHE HAS ALREADY HAD ON THIS AM AND THAT I WOULD BE CALLING HER DOCTOR OR THE DOCTOR PLUNKET NURSE TO INFORM THEM OF PT GWENDOLYN. VOICED UNDERSTAND AND WAS VERY THANKFUL AND RETURNED TO ROOM. C/L IN REACH AT BEDSIDE.
--- NOTE | 2018-09-07 10:30 | NUR ---
CALLED AND SPOKE WITH DATA ENTRY TECHNICIAN ABOUT PT SWOLLEN AND HER LS WORSENING. THIS NURSE LISTENED TO PT AND ALSO HAD RT LISTEN TO HER WELL AND RT STATED THAT SHE SOUNDS WORSE TODAY THEN YESTERDAY. REC'D ORDERS FOR AN ADDITION DOSE OF LASIX 40MG, POTASSIUM 40MEQ AND A CHEST X-RAY. PT WAS MADE AWARE OF NEEW ORDERS. HECTORAND AND C/L AT BEDSIDE.
[2018-09-07 12:59] VITALS: BP 113/57
[2018-09-07 17:01] VITALS: BP 101/43
--- NOTE | 2018-09-07 20:00 | NUR ---
LYING IN BED. ALERT AND ORIENTED X4. STATES SHE HAS H/A AND RATES PAIN . RESP EVEN AND NONLABORED. SOB WITH MIN EXERTION. PROD COUGH AND REPORTS GREEN SPUTUM. O2 @ 2L/NC. BRUISES NOTED TO BUE. 2+ EDEMA TO BLE. SALINE LOCK NOTED TO RT HAND. NO DISTRESS. CL IN REACH.
[2018-09-07 20:23] VITALS: BP 139/40
[2018-09-08 00:15] VITALS: BP 154/50
[2018-09-08 04:23] VITALS: BP 126/60
[2018-09-08 06:00] LABS: ANION GAP 11.5 mmol/L (8-16); CREATININE - SERUM 0.8 mg/dL (0.6-1.3); POTASSIUM - SERUM 3.5 mmol/L (3.5-5.1)
[2018-09-08 06:12] LABS: HEMATOCRIT 34.7 % (36.0-48.0); HEMOGLOBIN 11.3 g/dL (12-16); LYMPHOCYTES 33.9 % (15-50); MCH 27.3 pg (26.0-34.0); MCHC 32.6 g/dL (31.0-37.0); MCV 83.8 fL (80.0-100.0); MEAN PLATELET VOLUME 9.6 fL (7.4-10.4); NEUTROPHILS 52.3 % (40-80); PLATELET COUNT 208 10x3/uL (130-400); RBC 4.14 10x6/uL (4.00-5.40); RDW 14.5 % (11.5-14.5)
[2018-09-08 06:13] LABS: WBC 4.3 10x3/uL (4.8-10.8)
--- NOTE | 2018-09-08 07:30 | NUR ---
REC'D IN BED AWAKE AND ALER. RESP EVEN AND UNLABORE WITH NO DISTRESS NOTED. CAN EXPRESS NEEDS AND WANTS. ASSESSMENT COMPLETED. C/L IN REACH AT BEDSIDE.
[2018-09-08 08:22] VITALS: BP 130/60
[2018-09-08 13:16] VITALS: BP 134/56
[2018-09-08 16:51] VITALS: BP 120/57
[2018-09-08 17:32] LABS: CKMB 1.8 U/L (0.0-3.6); CREATINE KINASE 165 UL (21-215)
[2018-09-08 17:33] LABS: TROPONIN-I < 0.017 ng/mL (0.000-0.060)
--- NOTE | 2018-09-08 18:44 | NUR ---
PATIENT RESTING IN BED WITH MILD HEADACHE REPORTED, TYLENOL GIVEN PO, WILL CONT TO MONITOR
[2018-09-08 20:53] VITALS: BP 120/50
--- NOTE | 2018-09-08 21:15 | NUR ---
ER NURSE HERE TO ATTEMPT TO START IV. ATTEMPTED X 1 WITH NO SUCCESS STATES WILL HAVE TO GET MIDLINE OR CVL
[2018-09-08 21:47] LABS: CKMB 1.5 U/L (0.0-3.6); CREATINE KINASE 152 UL (21-215); TROPONIN-I < 0.017 ng/mL (0.000-0.060)
[2018-09-09 01:11] VITALS: BP 134/54
--- NOTE | 2018-09-09 02:53 | NUR ---
SITTING UP IN BED RESP UNLABORED, NO IV ACCESS, CALL LIGHT IN REACH NO APPARENT DISTRESS
[2018-09-09 04:51] VITALS: BP 123/51
[2018-09-09 05:29] LABS: BASOPHILS 0.6 % (0-2); HEMATOCRIT 36.4 % (36.0-48.0); HEMOGLOBIN 11.4 g/dL (12-16); IMMATURE GRANULOCYTES 0.6 % (0-5); LYMPHOCYTES 31.3 % (15-50); MCH 26.3 pg (26.0-34.0); MCHC 31.3 g/dL (31.0-37.0); MCV 83.9 fL (80.0-100.0); MEAN PLATELET VOLUME 10.3 fL (7.4-10.4); NEUTROPHILS 53.5 % (40-80); PLATELET COUNT 236 10x3/uL (130-400); RBC 4.34 10x6/uL (4.00-5.40); RDW 15.1 % (11.5-14.5); WBC 5.4 10x3/uL (4.8-10.8)
[2018-09-09 05:50] LABS: ALBUMIN 2.7 g/dL (3.4-5.0); ALKALINE PHOSPHATASE 31 U/L (46-116); ALT (SGPT) 30 U/L (10-68); BILIRUBIN - TOTAL 0.38 mg/dL (0.2-1.3); CALC OSMOLALITY 286 mosm/kg (275-300); CALCIUM 8.3 mg/dL (8.5-10.1); CARBON DIOXIDE 30.3 mmol/L (21.0-32.0); CHLORIDE - SERUM 105 mmol/L (98-107); CKMB 1.4 U/L (0.0-3.6); CREATINE KINASE 122 UL (21-215); CREATININE - SERUM 0.9 mg/dL (0.6-1.3); GLUCOSE 134 mg/dL (74-106); POTASSIUM - SERUM 3.1 mmol/L (3.5-5.1); PROTEIN - SERUM 5.8 g/dL (6.4-8.2); SODIUM 144 mmol/L (136-145); TROPONIN-I < 0.017 ng/mL (0.000-0.060); UREA NITROGEN 6 mg/dL (7-18); eGFR NON AFRICAN AMERICAN 64 mL/min (90-120)
[2018-09-09 09:35] VITALS: BP 121/53
[2018-09-09 10:14] LABS: MAGNESIUM - SERUM 1.4 mg/dL (1.8-2.4); PHOSPHOROUS 3.1 mg/dL (2.5-4.9)
[2018-09-09 11:05] VITALS: Ht 167.6 cm; Wt 92.1 kg
[2018-09-09 14:13] VITALS: BP 127/53
[2018-09-09 15:42] VITALS: BP 124/76
--- NOTE | 2018-09-09 19:15 | NUR ---
RECEIVED CARE FROM DAY NURSE. IN BED IN HIGH FOWLERS POSITION. REPORTS NO NEEDS AT THIS TIME. CALL LIGHT AT SIDE. NO IV.
[2018-09-09 21:28] VITALS: BP 110/51
[2018-09-10 00:29] VITALS: BP 110/80
[2018-09-10 05:26] VITALS: BP 125/52
[2018-09-10 06:38] LABS: BASOPHILS 0.6 % (0-2); EOSINOPHILS 3.5 % (0-7); HEMATOCRIT 36.8 % (36.0-48.0); HEMOGLOBIN 11.4 g/dL (12-16); IMMATURE GRANULOCYTES 0.2 % (0-5); LYMPHOCYTES 24.8 % (15-50); MCH 26.1 pg (26.0-34.0); MCV 84.4 fL (80.0-100.0); MEAN PLATELET VOLUME 10.2 fL (7.4-10.4); MONOCYTES 10.4 % (2-11); NEUTROPHILS 60.5 % (40-80); PLATELET COUNT 249 10x3/uL (130-400); RBC 4.36 10x6/uL (4.00-5.40); RDW 15.3 % (11.5-14.5); WBC 5.4 10x3/uL (4.8-10.8)
[2018-09-10 07:07] LABS: ALBUMIN 2.6 g/dL (3.4-5.0); BILIRUBIN - TOTAL 0.33 mg/dL (0.2-1.3); CALCIUM 8.2 mg/dL (8.5-10.1); CARBON DIOXIDE 26.8 mmol/L (21.0-32.0); CREATININE - SERUM 0.8 mg/dL (0.6-1.3); PROTEIN - SERUM 5.8 g/dL (6.4-8.2)
[2018-09-10 07:09] LABS: ANION GAP 14.1 mmol/L (8-16); POTASSIUM - SERUM 3.9 mmol/L (3.5-5.1)
--- NOTE | 2018-09-10 08:00 | NUR ---
PT AAOX4 RESP EVEN AND NONLABORED, NO SIGNS OF DISTRESS NOTED, CL IN REACH WILL CONTINUE TO MONITOR
[2018-09-10 09:09] VITALS: BP 110/63
[2018-09-10 13:15] VITALS: BP 105/70
--- NOTE | 2018-09-10 17:41 | NUR ---
CLINICAL RESEARCH SCIENTIST NOTES - ENTERIC ISO FOR CDIFF. SOB WHEN AMBULATING, 2L O2 PER NC. LABS IMPROVED. EXPECTING DISCHARGE TOMORROW.
[2018-09-10 20:53] VITALS: BP 161/79
[2018-09-11 00:50] VITALS: BP 160/80
--- NOTE | 2018-09-11 01:05 | NUR ---
PT REPORTS TO PSYCHIATRIST THAT SHE FEELS BLOATED WITH INDIGESTION. UPON ENTERING ROOM PT APPEARS TO BE ASLEEP.
--- NOTE | 2018-09-11 02:45 | NUR ---
IV IN LEFT FA PAINFUL. LEAKING SLIGHTLY. DC'D WITH TIP INTACT. NOT RESITED AT THIS TIME. PT REPORTS JOSH COULD SITE IT.
[2018-09-11 05:02] VITALS: BP 159/69
[2018-09-11 07:34] LABS: BASOPHILS 0.5 % (0-2); EOSINOPHILS 3.2 % (0-7); HEMATOCRIT 36.1 % (36.0-48.0); HEMOGLOBIN 11.2 g/dL (12-16); IMMATURE GRANULOCYTES 0.5 % (0-5); LYMPHOCYTES 15.5 % (15-50); MCH 26.4 pg (26.0-34.0); MCV 85.1 fL (80.0-100.0); MEAN PLATELET VOLUME 10.4 fL (7.4-10.4); MONOCYTES 9.2 % (2-11); NEUTROPHILS 71.1 % (40-80); PLATELET COUNT 229 10x3/uL (130-400); RBC 4.24 10x6/uL (4.00-5.40); RDW 15.3 % (11.5-14.5)
[2018-09-11 07:36] LABS: WBC 7.5 10x3/uL (4.8-10.8)
--- NOTE | 2018-09-11 07:49 | NUR ---
PT AAOX4 RESP EVEN AND NONLABORED, NO SIGNS OF DISTRESS NOTED, CL IN REACH BED IN LOWEST POSTION SR UPX2
[2018-09-11 08:00] VITALS: BP 110/50
[2018-09-11 08:11] LABS: ALBUMIN 2.7 g/dL (3.4-5.0); ANION GAP 14.7 mmol/L (8-16); BILIRUBIN - TOTAL 0.31 mg/dL (0.2-1.3); CARBON DIOXIDE 26.1 mmol/L (21.0-32.0); CREATININE - SERUM 0.8 mg/dL (0.6-1.3); MAGNESIUM - SERUM 1.8 mg/dL (1.8-2.4); POTASSIUM - SERUM 3.8 mmol/L (3.5-5.1); PROTEIN - SERUM 5.8 g/dL (6.4-8.2)
[2018-09-11] MEDS ORDERED: FLORASTOR250 MG PO (12:17)
[2018-09-11] MEDS ORDERED: FLAGYL500 MG PO (12:18)
[2018-09-11] MEDS ORDERED: LOMOTIL 2.5-0.1 EAC1 PO (12:22)
[2018-09-11] MEDS ORDERED: VANCOCIN HCL250 MG PO (12:22)
[2018-09-11] MEDS ORDERED: Vancomycin HCl PO (12:22)
--- NOTE | 2018-09-11 13:29 | MORECARE ---
CASE MANAGEMENT DISCHARGE SUMMARY PATIENT: MARIELOS TALAMANTES UNIT: [id number] ADM DATE: 09/04/18 AGE: 78 : 39 SEX: F ROOM/BED: D.2208 AUTHOR: CLAUDIADOC PHYSICIAN: REFERRING PHYSICIAN: ASHU WU MD DATE OF SERVICE: 09/11/18 Discharge Plan Patient Name: MARIELOS TALAMANTES Facility: [facility]:[place] : 1940 Planned Disposition: Home Anticipated Discharge Date: 09/11/18 Discharge Date: Expected LOS: 7 Initial Reviewer: [id number] Initial Review Date: 09/03/2018 Generated: 09/11/18 2:29 pm Comments DCP- Discharge Planning Updated by [email or web address]: Huma Rosenbaum on 09/06/18 4:[address] Patient Name: MARIELOS TALAMANTES Admission Status: ER Accout number: [id number] Admission Date: 09-04-2018 : 1940 Admission Diagnosis: Attending: ASHU WU Current LOS: 2 Anticipated DC Date: Planned Disposition: Home Primary Insurance: [employer] Discharge Planning Comments: CM MET WITH PATIENT AND DAUGHTER TO ASSESS DISCHARGE PLANNING NEEDS. PATIENT LIVES INDEPENDENTLY AT HOME WHERE SHE PLANS TO RETURN [place] HER SPOUSE MAURISIO WILL BE THE ONE TO DRIVE HER HOME. SHE STATED THAT SHE DOES NOT WANT HOME HEALTH AT THIS TIME. SHE HAS HOME O2, NEBULIZER ([employer]) WALKER, WHEELCHAIR, SHOWER CHAIR AND HAD A TRILOGUY, BUT COULD NOT USE IT. SHE WOULD LIKE TO HAVE PORTABLE O2, I WILL CONTACT [facility] AND SEE IF THAT CAN BE ARRANGED. CM WILL CONTINUE TO FOLLOW AND ASSIST WITH DC PLANNING NEEDS Database Report Writer: Huma Rosenbaum DCPIA - Discharge Planning Initial Assessment Updated by [id number]: Huma Rosenbaum on 09/06/18 5:22 pm * Is the patient Alert and Oriented? Yes * How many steps to enter\exit or inside your home? * PCP FARO * Pharmacy [facility] * Preadmission Environment Home with Family * ADLs Independent * Equipment Bedside Commode Nebulizer Oxygen Rolling Walker Shower Chair Walker Wheelchair * Other Equipment HAD TRILOGY * List name and contact numbers for known caregivers / representatives who currently or will assist patient after discharge: MAURISIO (SPOUSE) [phone] JOHNATHAN (DAUGHTER) [phone] * Verbal permission to speak to the caregivers and representatives has been obtained from the patient. Yes * Community resources currently utilized None * Additional services required to return to the preadmission environment? No * Can the patient safely return to the preadmission environment? Yes * Has this patient been hospitalized within the prior 30 days at any hospital? No Coverage Notice Reviewer: [email or web address] Michelle Rosenbaum Notice Issued Date-Time: 09/06/2018 17:10 Notice Type: IM Discharge Notice Notice Delivered To: Patient Relationship to Patient: Hospital Medical Biller Name: Delivery Method: HAND - Hand Delivered Gricelda Days: Prior Verbal Notification: Recipient Understood Notice: Yes Recipient Signature: Yes Med Rec Note Co-signed by Attending: Coverage Notice Comment: Last DP export: 09/06/18 4:28 pm Patient Name: MARIELOS TALAMANTES Page [phone] at 1329 All edits/amendments must be made on the electronic document DICTATION DATE: 09/11/18 1329 [place]ADEMARK PARALEGAL: SAUL 09/11/18 1329 RPT#: [id number] DC DATE: STATUS: ADM IN [facility] [address] [place] [address] END OF REPORT
--- NOTE | 2018-09-11 13:36 | MORECARE ---
CASE MANAGEMENT DISCHARGE SUMMARY PATIENT: MARIELOS TALAMANTES UNIT: [id number] ADM DATE: 09/04/18 AGE: 78 : 39 SEX: F ROOM/BED: D.2208 AUTHOR: CATHERINE TAYLOR PHYSICIAN: REFERRING PHYSICIAN: ASHU WU MD DATE OF SERVICE: 09/11/18 Discharge Plan Patient Name: MARIELOS TALAMANTES Facility: [facility]:[place] : 1940 Planned Disposition: Home Anticipated Discharge Date: 09/11/18 Discharge Date: Expected LOS: 7 Initial Reviewer: [email or web address] Initial Review Date: 09/03/2018 Generated: 09/11/18 2:35 pm Comments DCP- Discharge Planning Updated by [email or web address]: Nely Donis on 09/11/18 12:[address] RECEIVED DISCHARGE ORDERS FOR TODAY. REPORTEDLY PATIENT WANTED HOME W/ HOSPICE [facility] IN THE WEEK. CM MET WITH THE PATIENT. SHE STATES HER GRANDDAUGHTER Tunde SUE IS WORKING ON THAT WITH THE FAMILY. THEY WILL DISCUSS WITH DR AGUILERA. SHE DENIES ANY NEEDS. DCP- Discharge Planning Updated by [id number]: Huma Rosenbaum on 09/06/18 4:[address] Patient Name: MARIELOS TALAMANTES Admission Status: ER Accout number: [id number] Admission Date: 09-04-2018 : 1940 Admission Diagnosis: Attending: ASHU WU Current LOS: 2 Anticipated DC Date: Planned Disposition: Home Primary Insurance: [employer] Discharge Planning Comments: CM MET WITH PATIENT AND DAUGHTER TO ASSESS DISCHARGE PLANNING NEEDS. PATIENT LIVES INDEPENDENTLY AT HOME WHERE SHE PLANS TO RETURN AT [place]. HER SPOUSE MAURISIO WILL BE THE ONE TO DRIVE HER HOME. SHE STATED THAT SHE DOES NOT WANT HOME HEALTH AT THIS TIME. SHE HAS HOME O2, NEBULIZER ([employer]) WALKER, WHEELCHAIR, SHOWER CHAIR AND HAD A TRILOGUY, BUT COULD NOT USE IT. SHE WOULD LIKE TO HAVE PORTABLE O2, I WILL CONTACT [facility] AND SEE IF THAT CAN BE ARRANGED. CM WILL CONTINUE TO FOLLOW AND ASSIST WITH DC PLANNING NEEDS Corporate Bond Trader: Huma Rosenbaum DCPIA - Discharge Planning Initial Assessment Updated by [email or web address]: Huma Rosenbaum on 09/06/18 5:22 pm * Is the patient Alert and Oriented? Yes * How many steps to enter\exit or inside your home? * PCP [facility] * Pharmacy [facility] * Preadmission Environment Home with Family * ADLs Independent * Equipment Bedside Commode Nebulizer Oxygen Rolling Walker Shower Chair Walker Wheelchair * Other Equipment HAD TRILOGY * List name and contact numbers for known caregivers / representatives who currently or will assist patient after discharge: MAURISIO (SPOUSE) [phone] JOHNATHAN (DAUGHTER) [phone] * Verbal permission to speak to the caregivers and representatives has been obtained from the patient. Yes * Community resources currently utilized None * Additional services required to return to the preadmission environment? No * Can the patient safely return to the preadmission environment? Yes * Has this patient been hospitalized within the prior 30 days at any hospital? No Coverage Notice Reviewer: [id number] - Huma Rosenbaum Notice Issued Date-Time: 09/06/2018 17:10 Notice Type: IM Discharge Notice Notice Delivered To: Patient Relationship to Patient: Cracker Dough Mixer Name: Delivery Method: HAND - Hand Delivered Gricelda Days: Prior Verbal Notification: Recipient Understood Notice: Yes Recipient Signature: Yes Med Rec Note Co-signed by Attending: Coverage Notice Comment: Last DP export: 09/11/18 12:29 p Patient Name: MARIELOS TALAMANTES Page [id number] at 1336 All edits/amendments must be made on the electronic document DICTATION DATE: 09/11/18 1335 CLOTH NAPPING SUPERVISOR: SAUL 09/11/18 1335 RPT#: [id number] DC DATE: STATUS: ADM IN [facility] [address] [place] [address] END OF REPORT
--- NOTE | 2018-09-11 17:32 | NUR ---
PT DC AT THIS TIME DC INSTRUCTIONS GIVEN PRESCTPITONS GIVEN TO PT LEFT VIA WHEELCHAIR VIA HOSPTIAL STAFF VIA PRIVATE VECHILE IN STABLE CONDITION
--- NOTE | 2018-09-12 09:22 | MORECARE ---
CASE MANAGEMENT DISCHARGE SUMMARY PATIENT: MARIELOS TALAMANTES UNIT: [id number] ADM DATE: 09/04/18 AGE: 78 : 39 SEX: F ROOM/BED: D.2208 AUTHOR: CATHERINE TAYLOR PHYSICIAN: REFERRING PHYSICIAN: ASHU WU MD DATE OF SERVICE: 09/12/18 Discharge Plan Patient Name: MARIELOS TALAMANTES Facility: [facility]:[place] : 1940 Planned Disposition: Home Anticipated Discharge Date: 09/11/18 Discharge Date: 09/11/2018 Expected LOS: 7 Initial Reviewer: [email or web address] Initial Review Date: 09/03/2018 Generated: 09/12/18 10:22 am DCP- Discharge Planning Updated by [email or web address]: Nely Donis on 09/11/18 12:[address] RECEIVED DISCHARGE ORDERS FOR TODAY. REPORTEDLY PATIENT WANTED HOME W/ HOSPICE EARLIER IN THE WEEK. CM MET WITH THE PATIENT. SHE STATES HER GRANDDAUGHTER Tunde SUE IS WORKING ON THAT WITH THE FAMILY. THEY WILL DISCUSS WITH DR AGUILERA. SHE DENIES ANY NEEDS. DCP- Discharge Planning Updated by [email or web address]: Huma Rosenbaum on 09/06/18 4:[address] Patient Name: MARIELOS TALAMANTES Admission Status: ER Accout number: [id number] Admission Date: 09-04-2018 : 1940 Admission Diagnosis: Attending: ASHU WU Current LOS: 2 Anticipated DC Date: Planned Disposition: Home Primary Insurance: [employer] Discharge Planning Comments: CM MET WITH PATIENT AND DAUGHTER TO ASSESS DISCHARGE PLANNING NEEDS. PATIENT LIVES INDEPENDENTLY [place] HOME [place] HER SPOUSE MAURISIO WILL BE THE ONE TO DRIVE HER HOME. SHE STATED THAT SHE DOES NOT WANT HOME HEALTH AT THIS TIME. SHE HAS HOME O2, NEBULIZER ([employer]) WALKER, WHEELCHAIR, SHOWER CHAIR AND HAD A TRILOGUY, BUT COULD NOT USE IT. SHE WOULD LIKE TO HAVE PORTABLE O2, I WILL CONTACT [facility] AND SEE IF THAT CAN BE ARRANGED. CM WILL CONTINUE TO FOLLOW AND ASSIST WITH DC PLANNING NEEDS Channel Process Plant Operator: Huma Rosenbaum DCPIA - Discharge Planning Initial Assessment Updated by [id number]: Huma Rosenbaum on 09/06/18 5:22 pm * Is the patient Alert and Oriented? Yes * How many steps to enter\exit or inside your home? * PCP [facility] * Pharmacy [facility] * Preadmission Environment Home with Family * ADLs Independent * Equipment Bedside Commode Nebulizer Oxygen Rolling Walker Shower Chair Walker Wheelchair * Other Equipment HAD TRILOGY * List name and contact numbers for known caregivers / representatives who currently or will assist patient after discharge: MAURISIO (SPOUSE) [phone] JOHNATHAN (DAUGHTER) [phone] * Verbal permission to speak to the caregivers and representatives has been obtained from the patient. Yes * Community resources currently utilized None * Additional services required to return to the preadmission environment? No * Can the patient safely return to the preadmission environment? Yes * Has this patient been hospitalized within the prior 30 days at any hospital? No Coverage Notice Reviewer: [id number] - Huma Rosenbaum Notice Issued Date-Time: 09/06/2018 17:10 Notice Type: IM Discharge Notice Notice Delivered To: Patient Relationship to Patient: Director Of Direct Marketing Name: Delivery Method: HAND - Hand Delivered Gricelda Days: Prior Verbal Notification: Recipient Understood Notice: Yes Recipient Signature: Yes Med Rec Note Co-signed by Attending: Coverage Notice Comment: Last DP export: 09/11/18 12:36 p Patient Name: MARIELOS TALAMANTES Page [id number] at 0922 All edits/amendments must be made on the electronic document DICTATION DATE: 09/12/18921 CLOD PULLER: SAUL 09/12/18921 RPT#: [id number] DC DATE:09/11/18 STATUS: DIS IN [facility] [address] [place] [address] END OF REPORT
[2018-09-13 03:11] LABS: OVA + PARASITE EXAM Final report (())
== END 2018-09-11 17:35 | disposition home or self-care (01) | DRG 372 ==
LOC: D.ER 07:31 → D.EDHOLD 11:50 → OBSVTIME 11:50 → D.MS 14:10
PROVIDERS: Emergency Medicine; Family Medicine; Internal Medicine Gastroenterology; ADMIT Internal Medicine Nephrology
DX: A04.72 Enterocolitis due to Clostridium difficile, not specified as recurrent (principal); J96.11 Chronic respiratory failure with hypoxia; J44.1 Chronic obstructive pulmonary disease with (acute) exacerbation; I25.10 Atherosclerotic heart disease of native coronary artery without angina pectoris; I11.0 Hypertensive heart disease with heart failure; I50.9 Heart failure, unspecified; E87.5 Hyperkalemia; E11.43 Type 2 diabetes mellitus with diabetic autonomic (poly)neuropathy; K31.84 Gastroparesis